=== PATIENT | female | born 1965 | race Caucasian/White ===

== ENCOUNTER 2017-02-24 21:09 | Inpatient (IN) | payer MEDICARE, OTHER ==
[~2017-02-24] VITALS: Ht 157.5 cm; Wt 122.5 kg
[2017-02-24 22:21] LABS: BASOPHILS # (AUTO) 0.1 K/uL (0.0-8.0); BASOPHILS % (AUTO) 1.2 % (0.0-2.0); EOSINOPHILS # (AUTO) 0.1 K/uL (0.0-0.7); EOSINOPHILS % (AUTO) 2.4 % (0.0-7.0); HEMATOCRIT 37.8 % (37-47); HEMOGLOBIN 12.4 G/DL (12.0-16.0); LYMPHOCYTES # (AUTO) 1.8 K/UL (0.8-4.8); LYMPHOCYTES % (AUTO) 30.5 % (20.5-51.5); MEAN CORPUSCULAR HEMOGLOBIN 31.8 UUG (27.0-31.0); MEAN CORPUSCULAR HGB CONC 33 g/dL (32.0-37.0); MEAN CORPUSCULAR VOLUME 96.9 FL (81.0-99.0); MONOCYTES # (AUTO) 0.6 K/UL (0.1-1.30); MONOCYTES % (AUTO) 10.7 % (0.0-11.0); NEUTROPHILS # (AUTO) 3.2 K/UL (1.8-8.9); NEUTROPHILS % (AUTO) 55.2 % (38.5-71.5); PLATELET COUNT (AUTO) 193 K/UL (150-450); WHITE BLOOD COUNT (AUTO) 5.8 K/UL (4.0-11.2)
[2017-02-24] MEDS ORDERED: HYPR15DR4 OP (22:25)
[2017-02-24] MEDS ORDERED: MYCO500T PO (22:25)
[2017-02-24] MEDS ORDERED: ONDA4TAB5 PO (22:25)
[2017-02-24] MEDS ORDERED: TAMS0.4C34 PO (22:25)
[2017-02-24] MEDS ORDERED: POTA-88 PO (22:25)
[2017-02-24] MEDS ORDERED: TRAM50TA PO (22:25)
[2017-02-24] MEDS ORDERED: HYDR-3026 PO (22:25)
[2017-02-24] MEDS ORDERED: SUCR1ORA PO (22:25)
[2017-02-24] MEDS ORDERED: POLY17PO4 PO (22:25)
[2017-02-24] MEDS ORDERED: DOCU250C14 PO (22:25)
[2017-02-24] MEDS ORDERED: FERR325T28 PO (22:25)
[2017-02-24] MEDS ORDERED: ACET-73 PO (22:25)
[2017-02-24] MEDS ORDERED: CHOL100062 PO (22:25)
[2017-02-24] MEDS ORDERED: ASCO-340 PO (22:25)
[2017-02-24] MEDS ORDERED: DOXY100C2 PO (22:25)
[2017-02-24] MEDS ORDERED: MONT10TA22 PO (22:25)
[2017-02-24] MEDS ORDERED: DILT30TA2 PO (22:25)
[2017-02-24] MEDS ORDERED: METH500T PO (22:25)
[2017-02-24] MEDS ORDERED: NITR0.4T48 SL (22:25)
[2017-02-24] MEDS ORDERED: NITR1PAT67 TD (22:25)
[2017-02-24] MEDS ORDERED: ARIP30TA3 PO (22:25)
[2017-02-24] MEDS ORDERED: GABA-536 PO (22:25)
[2017-02-24] MEDS ORDERED: BUDE0.5A4 IH (22:25)
[2017-02-24] MEDS ORDERED: MELA10TA3 PO (22:25)
[2017-02-24] MEDS ORDERED: MAGN400C PO (22:25)
[2017-02-24] MEDS ORDERED: IBUP-1955 PO (22:25)
[2017-02-24] MEDS ORDERED: AMLO10TA4 PO (22:25)
[2017-02-24] MEDS ORDERED: PANT40TA4 PO (22:25)
[2017-02-24] MEDS ORDERED: MULT1TAB73 PO (22:25)
[2017-02-24] MEDS ORDERED: APIX5TAB PO (22:25)
[2017-02-24] MEDS ORDERED: FURO80TA87 PO (22:25)
[2017-02-24] MEDS ORDERED: CLON1TAB PO (22:25)
[2017-02-24 22:29] LABS: CREATININE 0.8 mg/dL (0.6-1.3); POTASSIUM 3.4 mmol/L (3.5-5.1)
[2017-02-24 22:44] LABS: BILIRUBIN,DIRECT 0.1 mg/dL (0.0-0.2); BILIRUBIN,TOTAL 0.3 mg/dL (0.2-1.0); TOTAL PROTEIN, SERUM 6.9 g/dL (6.4-8.2)
[2017-02-25] VITALS (7 sets, daily range): BP systolic 95–122; BP diastolic 45–74
[2017-02-25] MEDS ORDERED: TRAMADOL HCL 50 MG TABLET PO PRN ×2 (01:30→08:30)
[2017-02-25] MEDS: IBUPROFEN 600 MG TABLET PO PRN ×4 (01:37→21:03)
[2017-02-25] MEDS ORDERED: TRAMADOL HCL 50 MG TABLET ONE (01:47)
[2017-02-25] MEDS ORDERED: IBUPROFEN 600 MG TABLET ONE (01:48)
[2017-02-25 06:52] LABS: BASOPHILS % (AUTO) 0.7 % (0.0-2.0); EOSINOPHILS # (AUTO) 0.1 K/uL (0.0-0.7); EOSINOPHILS % (AUTO) 2.6 % (0.0-7.0); HEMATOCRIT 35.1 % (37-47); HEMOGLOBIN 11.7 G/DL (12.0-16.0); LYMPHOCYTES # (AUTO) 1.7 K/UL (0.8-4.8); LYMPHOCYTES % (AUTO) 33.6 % (20.5-51.5); MEAN CORPUSCULAR HEMOGLOBIN 32.3 UUG (27.0-31.0); MEAN CORPUSCULAR HGB CONC 34 g/dL (32.0-37.0); MEAN CORPUSCULAR VOLUME 96.6 FL (81.0-99.0); MONOCYTES # (AUTO) 0.6 K/UL (0.1-1.30); MONOCYTES % (AUTO) 11.6 % (0.0-11.0); NEUTROPHILS # (AUTO) 2.5 K/UL (1.8-8.9); NEUTROPHILS % (AUTO) 51.5 % (38.5-71.5); PLATELET COUNT (AUTO) 191 K/UL (150-450); RED BLOOD CELL COUNT(AUTO) 3.63 MIL/UL (4.2-5.4); WHITE BLOOD COUNT (AUTO) 4.9 K/UL (4.0-11.2)
[2017-02-25 06:58] LABS: CREATININE 0.6 mg/dL (0.6-1.3); PHOSPHOROUS 4.3 mg/dL (2.5-4.9); POTASSIUM 3.1 mmol/L (3.5-5.1)
[2017-02-25] MEDS ORDERED: hydrOXYzine HCL 25 MG TABLET PO PRN (08:30)
[2017-02-25] MEDS ORDERED: DILTIAZEM HCL 30 MG TABLET PO PRN (08:30)
[2017-02-25] MEDS ORDERED: POLYVINYL ALCOHOL OPHT DROPS 15 ML BOTTLE EACHEYE PRN (08:30)
[2017-02-25] MEDS ORDERED: ONDANSETRON HCL 4 MG TABLET PO PRN (08:30)
[2017-02-25] MEDS ORDERED: NITROGLYCERIN 0.4 MG/TAB BOTTLE SL PRN (08:30)
[2017-02-25] MEDS ORDERED: FUROSEMIDE 80 MG TABLET PO SCH (09:00)
[2017-02-25] MEDS ORDERED: MAGNESIUM OXIDE 400 MG TABLET PO SCH (09:00)
[2017-02-25] MEDS ORDERED: NITROGLYCERIN PATCH TD SCH (09:00)
[2017-02-25] MEDS ORDERED: POTASSIUM CHLORIDE 20 MEQ TAB.PRT.SR PO SCH (09:00)
[2017-02-25] MEDS ORDERED: AMLODIPINE 10 MG TABLET PO SCH (09:00)
[2017-02-25] MEDS: CHOLECALCIFEROL 1,000 UNIT TABLET PO SCH ×2 (09:22→17:16)
[2017-02-25] MEDS: TAMSULOSIN HCL 0.4 MG CAP.SR.24H PO SCH (09:24)
[2017-02-25] MEDS: MYCOPHENOLATE MOFETIL 250 MG CAPSULE PO SCH ×2 (09:24→17:17)
[2017-02-25] MEDS: ASCORBIC ACID 500 MG TABLET PO SCH ×2 (09:26→17:18)
[2017-02-25] MEDS: DOCUSATE SODIUM 250 MG CAPSULE PO SCH ×2 (09:27→17:18)
[2017-02-25] MEDS ORDERED: MELATONIN 3 MG TABLET PO PRN (09:30)
[2017-02-25] MEDS ORDERED: APIXABAN 5 MG TABLET PO ONE (09:30)
[2017-02-25] MEDS: MULTIVITAMINS,THERAPEUTIC TABLET PO SCH (09:33)
[2017-02-25] MEDS: MIRALAX 17 GM POWD.PACK PO SCH ×2 (09:33→17:19)
[2017-02-25] MEDS: PANTOPRAZOLE SODIUM 40 MG TABLET.DR PO SCH ×2 (09:35→17:18)
[2017-02-25] MEDS ORDERED: GABA400C PO (10:50)
[2017-02-25] MEDS: BUDESONIDE 0.5 MG/2 ML NEBU IH SCH ×2 (11:09→16:33)
[2017-02-25] MEDS: ARIPIPRAZOLE 10 MG TABLET PO SCH (11:39)
[2017-02-25] MEDS: SUCRALFATE 1 G/10 ML LIQUID UDC PO SCH ×3 (11:40→21:02)
[2017-02-25] MEDS: METHOCARBAMOL 500 MG TABLET PO PRN ×2 (11:40→21:11)
[2017-02-25] MEDS: DOXYCYCLINE HYCLATE 100 MG TABLET PO SCH ×2 (11:40→21:11)
[2017-02-25] MEDS: NITROGLYCERIN 0.1 MG/HR (=4 CM2) PATCH TD SCH (11:44)
[2017-02-25] MEDS: GABAPENTIN 400 MG CAPSULE PO SCH ×3 (11:48→21:11)
[2017-02-25] MEDS: FERROUS SULFATE 325 MG TABEC PO SCH (11:48)
[2017-02-25] MEDS ORDERED: FUROSEMIDE 40 MG/4 ML VIAL IV SCH ×2 (12:00→17:00)
[2017-02-25] MEDS: POTASSIUM CHLORIDE 20 MEQ TAB.PRT.SR PO SCH ×2 (13:31→17:18)
[2017-02-25] MEDS ORDERED: POTASSIUM CHLORIDE 20 MEQ TAB.PRT.SR PO ONE (15:00)
[2017-02-25] MEDS: CLONAZEPAM 1 MG TABLET PO PRN ×2 (15:48→21:27)
[2017-02-25] MEDS: FUROSEMIDE 40 MG TABLET PO SCH (17:18)
[2017-02-25] MEDS: APIXABAN 5 MG TABLET PO SCH (17:24)
[2017-02-25] MEDS: ACETAMINOPHEN ES 500 MG TABLET PO PRN (17:24)
[2017-02-25] MEDS: MAGNESIUM OXIDE 400 MG TABLET PO SCH (18:46)
[2017-02-25] MEDS ORDERED: GABAPENTIN 400 MG CAPSULE PO SCH (21:00)
[2017-02-25] MEDS ORDERED: Medication Not On Formulary EA (Melatonin 10 MG) PO SCH (21:00)
[2017-02-25] MEDS: MONTELUKAST SODIUM 10 MG TABLET PO SCH (21:11)
[2017-02-26] MEDS: ACETAMINOPHEN ES 500 MG TABLET PO PRN ×3 (01:19→16:52)
[2017-02-26] MEDS: IBUPROFEN 600 MG TABLET PO PRN ×2 (05:17→13:43)
[2017-02-26] MEDS: METHOCARBAMOL 500 MG TABLET PO PRN ×2 (05:17→13:43)
[2017-02-26 05:42] VITALS: BP 116/65
[2017-02-26 06:24] LABS: BASOPHILS % (AUTO) 0.6 % (0.0-2.0); EOSINOPHILS # (AUTO) 0.1 K/uL (0.0-0.7); EOSINOPHILS % (AUTO) 2.5 % (0.0-7.0); HEMATOCRIT 36.9 % (37-47); LYMPHOCYTES # (AUTO) 1.6 K/UL (0.8-4.8); LYMPHOCYTES % (AUTO) 38.9 % (20.5-51.5); MEAN CORPUSCULAR HEMOGLOBIN 31.4 UUG (27.0-31.0); MEAN CORPUSCULAR HGB CONC 33 g/dL (32.0-37.0); MEAN CORPUSCULAR VOLUME 96.6 FL (81.0-99.0); MONOCYTES # (AUTO) 0.5 K/UL (0.1-1.30); MONOCYTES % (AUTO) 12.1 % (0.0-11.0); NEUTROPHILS # (AUTO) 1.9 K/UL (1.8-8.9); NEUTROPHILS % (AUTO) 45.9 % (38.5-71.5); PLATELET COUNT (AUTO) 193 K/UL (150-450); RED BLOOD CELL COUNT(AUTO) 3.82 MIL/UL (4.2-5.4); WHITE BLOOD COUNT (AUTO) 4.1 K/UL (4.0-11.2)
[2017-02-26 06:57] LABS: BILIRUBIN,TOTAL 0.3 mg/dL (0.2-1.0); CREATININE 0.6 mg/dL (0.6-1.3); MAGNESIUM 2.1 mg/dL (1.8-2.4); PHOSPHOROUS 3.6 mg/dL (2.5-4.9); POTASSIUM 4.1 mmol/L (3.5-5.1); TOTAL PROTEIN, SERUM 6.3 g/dL (6.4-8.2)
[2017-02-26] MEDS: SUCRALFATE 1 G/10 ML LIQUID UDC PO SCH ×4 (06:57→20:01)
[2017-02-26] MEDS: POTASSIUM CHLORIDE 20 MEQ TAB.PRT.SR PO SCH ×3 (08:25→16:27)
[2017-02-26] MEDS: DOXYCYCLINE HYCLATE 100 MG TABLET PO SCH ×2 (08:26→20:02)
[2017-02-26] MEDS: MYCOPHENOLATE MOFETIL 250 MG CAPSULE PO SCH ×2 (08:26→16:27)
[2017-02-26] MEDS: FUROSEMIDE 40 MG TABLET PO SCH ×2 (08:27→16:27)
[2017-02-26] MEDS: TAMSULOSIN HCL 0.4 MG CAP.SR.24H PO SCH (08:28)
[2017-02-26] MEDS: GABAPENTIN 400 MG CAPSULE PO SCH ×3 (08:28→20:01)
[2017-02-26] MEDS: ASCORBIC ACID 500 MG TABLET PO SCH ×2 (08:28→16:26)
[2017-02-26] MEDS: DOCUSATE SODIUM 250 MG CAPSULE PO SCH ×2 (08:29→16:27)
[2017-02-26] MEDS: CHOLECALCIFEROL 1,000 UNIT TABLET PO SCH ×2 (08:29→16:28)
[2017-02-26] MEDS: MULTIVITAMINS,THERAPEUTIC TABLET PO SCH (08:29)
[2017-02-26] MEDS: MIRALAX 17 GM POWD.PACK PO SCH ×2 (08:30→16:35)
[2017-02-26] MEDS: PANTOPRAZOLE SODIUM 40 MG TABLET.DR PO SCH ×2 (08:30→16:28)
[2017-02-26] MEDS: APIXABAN 5 MG TABLET PO SCH ×2 (08:33→17:47)
[2017-02-26] MEDS: NITROGLYCERIN 0.1 MG/HR (=4 CM2) PATCH TD SCH (08:35)
[2017-02-26] MEDS: ARIPIPRAZOLE 10 MG TABLET PO SCH (08:50)
[2017-02-26] MEDS: BUDESONIDE 0.5 MG/2 ML NEBU IH SCH ×2 (08:55→17:00)
[2017-02-26 11:14] VITALS: BP 127/64
[2017-02-26] MEDS: MAGNESIUM OXIDE 400 MG TABLET PO SCH ×2 (11:31→16:27)
[2017-02-26] MEDS: FERROUS SULFATE 325 MG TABEC PO SCH (11:31)
[2017-02-26] MEDS ORDERED: Z GUARD REMEDY PASTE 57 GM TUBE TOP PRN (15:00)
[2017-02-26] MEDS ORDERED: Z GUARD REMEDY PASTE 57 GM TUBE TOP SCH (15:00)
[2017-02-26 15:12] VITALS: BP 125/65
[2017-02-26] MEDS: CLONAZEPAM 1 MG TABLET PO PRN (17:49)
[2017-02-26 19:00] VITALS: BP 106/55
[2017-02-26] MEDS: MONTELUKAST SODIUM 10 MG TABLET PO SCH (20:02)
== END 2017-02-26 20:51 | DRG 948 ==
LOC: ER 21:12 → MED 23:59 → TELE 02-25 06:41 → MED 02-25 15:50
PROVIDERS: ADMIT Internal Medicine; ATTEND Internal Medicine
DX: R60.0 Localized edema (principal); M32.9 Systemic lupus erythematosus, unspecified; I11.9 Hypertensive heart disease without heart failure; Z68.42 Body mass index [BMI] 45.0-49.9, adult; E66.9 Obesity, unspecified; R53.1 Weakness; Z88.8 Allergy status to other drugs, medicaments and biological substances; Z91.048 Other nonmedicinal substance allergy status; Z74.09 Other reduced mobility; Z86.718 Personal history of other venous thrombosis and embolism; Z79.01 Long term (current) use of anticoagulants; Z86.711 Personal history of pulmonary embolism; I87.2 Venous insufficiency (chronic) (peripheral)
CPT/HCPCS: 36415; 70030-TC; 71010; 82533; 83735; 84100; 84443; 85025; 85730; 93005; 93307; 94640; 97116; 97530; A4663; J7517

== ENCOUNTER 2017-07-21 23:20 | Inpatient (IN) | payer OTHER, MEDICARE ==
[~2017-07-21] VITALS: Ht 167.6 cm; Wt 124.7 kg
[~2017-07-21 23:20] MED LIST: ACET-73 PO; AMLO10TA4 PO; APIX5TAB PO; ARIP30TA3 PO; ASCO-340 PO; BUDE0.5A4 IH; CHOL100062 PO; CLON1TAB PO; DILT30TA2 PO; DOCU250C14 PO; DOXY100C2 PO; FERR325T28 PO; FURO80TA87 PO; GABA-536 PO; GABA400C PO; HYDR-3026 PO; HYPR15DR4 OP; IBUP-1955 PO; MAGN400C PO; MELA10TA3 PO; METH500T PO; MONT10TA22 PO; MULT1TAB73 PO; MYCO500T PO; NITR0.4T48 SL; NITR1PAT67 TD; ONDA4TAB5 PO; PANT40TA4 PO; POLY17PO4 PO; POTA-88 PO; SUCR1ORA PO; TAMS0.4C34 PO; TRAM50TA PO
--- NOTE | 2017-07-21 23:30 | NUR ---
PT BIB AMBULANCE AFTER BEING FOUND UNRESPONSIVE AND POSSIBLY SUSPECTED OVERDOSE PER [facility].
--- NOTE | 2017-07-21 23:50 | NUR ---
PT REMAINS UNCONSCIOUS. TAKEN TO CT. VSS. NO ACUTE DISTRESS NOTED. ACCOMPANIED BY RN.
[2017-07-22] MEDS ORDERED: NALOXONE HCL 0.4 MG/ML AMPUL ONE (00:09)
--- NOTE | 2017-07-22 00:09 | NUR ---
PT REMAINS UNCONSCIOUS. RESPONSIVE TO PAINFUL STIMULI, ATTEMPTING TO PULL AT NG TUBE
[2017-07-22] MEDS ORDERED: ONDANSETRON 4 MG/2 ML VIAL IV ONE (00:45)
[2017-07-22] MEDS ORDERED: CHARCOAL/SORBITOL SOLUTION 50 GM/240 ML BOTTLE PO ONE (00:45)
[2017-07-22] MEDS ORDERED: NALOXONE HCL 0.4 MG/ML AMPUL IV ONE ×2 (00:45)
[2017-07-22] MEDS ORDERED: NALOXONE 2 MG/2 ML SYRINGE ONE (00:56)
[2017-07-22] MEDS ORDERED: ONDANSETRON 4 MG/2 ML VIAL ONE (01:24)
[2017-07-22] MEDS ORDERED: CHARCOAL/SORBITOL SOLUTION 50 GM/240 ML BOTTLE ONE (01:25)
[2017-07-22 01:27] LABS: CARBON DIOXIDE 23 mmol/L (21-32); CHLORIDE 107 mmol/L (98-107); CREATININE 0.8 mg/dL (0.6-1.3); GLUCOSE 123 mg/dL (74-106); POTASSIUM 4.1 mmol/L (3.5-5.1); UREA NITROGEN, BLOOD 26 mg/dL (7-18)
[2017-07-22 01:33] LABS: ALANINE AMINOTRANSFERASE 21 U/L (14-59); ALKALINE PHOSPHATASE 126 U/L (50-136); ASPARTATE AMINOTRANSFERASE 28 U/L (15-37); BILIRUBIN,DIRECT 0.1 mg/dL (0.0-0.2); BILIRUBIN,TOTAL 0.5 mg/dL (0.2-1.0); TOTAL PROTEIN, SERUM 7.1 g/dL (6.4-8.2)
[2017-07-22 01:54] LABS: BASOPHILS % (AUTO) 0.6 % (0.0-2.0); EOSINOPHILS # (AUTO) 0.1 K/uL (0.0-0.7); EOSINOPHILS % (AUTO) 1.1 % (0.0-7.0); HEMATOCRIT 41.7 % (31.2-41.9); LYMPHOCYTES # (AUTO) 1.9 K/uL (20.0-40.0); LYMPHOCYTES % (AUTO) 31.1 % (20.5-51.5); MEAN CORPUSCULAR HEMOGLOBIN 33.3 uug (24.7-32.8); MEAN CORPUSCULAR HGB CONC 34 g/dL (32.3-35.6); MONOCYTES # (AUTO) 0.9 K/uL (2.0-10.0); MONOCYTES % (AUTO) 14.7 % (0.0-11.0); NEUTROPHILS # (AUTO) 3.2 K/uL (1.8-8.9); NEUTROPHILS % (AUTO) 52.5 % (38.5-71.5); PLATELET COUNT (AUTO) 198 K/uL (179-408); RED BLOOD CELL COUNT(AUTO) 4.21 MIL/uL (3.63-4.92); WHITE BLOOD COUNT (AUTO) 6.1 K/uL (3.8-11.8)
--- NOTE | 2017-07-22 02:00 | NUR ---
STILL AWAITING PENDING LAB RESULTS
[2017-07-22 02:05] LABS: ETHANOL < 3 MG/DL (0-0)
[2017-07-22 02:08] LABS: *URINE HCG, QUAL NEGATIVE (NEGATIVE)
[2017-07-22 02:16] LABS: *AMPHETAMINE, URINE NEGATIVE (NEGATIVE); *BARBITURATE, URINE NEGATIVE (NEGATIVE); *CANNABINOID, URINE NEGATIVE (NEGATIVE); *COCCAINE, URINE NEGATIVE (NEGATIVE); *OPIATE, URINE POSITIVE (NEGATIVE); *PHENCYCLIDINE SCREEN,URINE NEGATIVE (NEGATIVE)
[2017-07-22 02:25] LABS: ACETAMINOPHEN 219.8 ug/mL (10-30)
[2017-07-22] MEDS ORDERED: ACETYLCYSTEINE 20% 800 MG/4 ML VIAL NEB ONE (02:30)
[2017-07-22] MEDS ORDERED: ACETYLCYSTEINE 20% 6000 MG/30 ML VIAL PO ONE (02:30)
[2017-07-22 02:36] LABS: *BILIRUBIN,URIN NEGATIVE (NEGATIVE); *BLOOD, URINE NEGATIVE (NEGATIVE); *CLARITY,URINE CLEAR (CLEAR); *COLOR,URINE YELLOW (YELLOW); *KETONES,URINE NEGATIVE (NEGATIVE); *PROTEIN,URINE NEGATIVE (NEGATIVE); *UROBILINOGEN,URINE 0.2 E.U./dl (NORMAL); LEUKOCYTE ESTERASE ,URINE NEGATIVE (NEGATIVE); NITRITE, URINE NEGATIVE (NEGATIVE); PH,URINE 5.5 (5.0-8.0); UGLUCOSE NEGATIVE (NEGATIVE)
[2017-07-22 02:40] LABS: BACTERIA,URINE NONE SEEN /HPF (NONE SEEN); RBC,URINE NONE SEEN /HPF (0-3); SQUAMOUS EPITHELIAL CELL,UR FEW /HPF (NONE SEEN); WBC,URINE NONE SEEN /HPF (0-3)
[2017-07-22] MEDS ORDERED: ACETYLCYSTEINE IV 6,000 MG/30 ML VIAL IV ONE ×5 (03:00→16:57)
[2017-07-22 03:07] LABS: THYROID STIMULATING HORMONE 1.117 mIU/mL (0.358-3.740)
[2017-07-22] MEDS ORDERED: ACETYLCYSTEINE 20% 6000 MG/30 ML VIAL ONE (03:18)
[2017-07-22] MEDS ORDERED: ACETYLCYSTEINE IV 60 ML IV ONE (03:18)
--- NOTE | 2017-07-22 03:21 | NUR ---
PT STARTING TO WAKE UP. WHEN ASKED IF SHE REMEMBERS WHAT HAPPENED, PT SHOOK HER HEAD "NO".
[2017-07-22] MEDS: ACETYLCYSTEINE IV 6,000 MG/30 ML VIAL IV ONE ×3 (03:54→04:35)
--- NOTE | 2017-07-22 04:43 | NUR ---
PER PROTOCOL, LOADING DOSE OF Acetadote IV IS 15,000 MG. HOWEVER, ONLY 12,000 MG IS AVAILABLE IN [facility]. DATABASE PROGRAMMER ANALYST MADE AWARE, WHO THEN CALLED COMMERCIAL LINES UNDERWRITER PHARMACIST. PER DATABASE PROGRAMMER ANALYST, NO OTHER Acetadote IV IS AVAILABLE THROUGHOUT HOSPITAL/PHARMACY. COMMERCIAL LINES UNDERWRITER PHARMACIST MADE AWARE. PER ER MD, THE AVAILABLE Acetadote IV IS TO BE GIVEN, WHICH WAS THE 12,000 MG STATED ABOVE. AWAITING RESTOCKING OF Acetadote IV TO GIVE PER PROTOCOL.
--- NOTE | 2017-07-22 05:13 | NUR ---
EPIC PAGED. WAS TOLD MD WILL CALL BACK.
--- NOTE | 2017-07-22 05:43 | NUR ---
PER PHARMACIST, LAST 3,000 MG OF Acetadote IV GIVEN OVER 10 MIN PER ORDER TO COMPLETE TOTAL BOLUS OF 15,000 MG LOADING DOSE OF Acetadote IV.
--- NOTE | 2017-07-22 05:59 | NUR ---
PT PENDING ADMISSION. NO [facility] BEDS AVAILABLE. WAS INSTRUCTED BY FOOD SAMPLER TO HOLD PATIENT UNTIL A BED BECOMES AVAILABLE.
--- NOTE | 2017-07-22 06:28 | NUR ---
NG TUBE DISCONTINUED PER ER .
--- NOTE | 2017-07-22 07:19 | NUR ---
REPORT GIVEN TO JESUS PEGUERO.
[2017-07-22] MEDS ORDERED: IV NORMAL SALINE 1000 ML BAG IV ONE (09:45)
[2017-07-22] MEDS ORDERED: ACETYLCYSTEINE IV 10,000 MG in IV D5W 1000ML 1,000 ML IV ONE (10:45)
--- NOTE | 2017-07-22 19:03 | NUR ---
REPORT GIVEN TO NEON ELECTRICIAN RN.
--- NOTE | 2017-07-22 19:36 | NUR ---
REPORT TAKEN FROM JESUS PEGUERO. ASSUMING PATIENT CARE AT THIS TIME.
--- NOTE | 2017-07-22 20:07 | NUR ---
REPORT GIVEN TO NEHEMIAS LEE
--- NOTE | 2017-07-22 20:12 | NUR ---
CALLED AUTOMOBILE OR [employer]UCK RENTAL DISPATCHER [employer]. TO GET A SITTER FOR PT WHEN SHE GETS ADMITTED. WAS TOLD THEY WILL CALL REGISTRY.
--- NOTE | 2017-07-22 22:00 | NUR ---
report given to JESUS Mcbride.
[2017-07-22 22:30] VITALS: BP 116/70
--- NOTE | 2017-07-22 22:34 | NUR ---
Pt. admitted to CCU, under care of Dr. Funk Belongs List completed
[2017-07-22] MEDS ORDERED: ACETAMINOPHEN 325 MG TABLET PO PRN (23:30)
[2017-07-22] MEDS ORDERED: IV D5/ 0.9% NACL 1,000 ML IV PRN (23:30)
[2017-07-22] MEDS ORDERED: MORPHINE SULFATE 2 MG/1 ML DISP.SYRIN IV PRN (23:30)
[2017-07-23] VITALS (7 sets, daily range): BP systolic 91–134; BP diastolic 52–72
--- NOTE | 2017-07-23 03:10 | NUR ---
RECEIVED PT FROM ED AT 2230 07/22/2017. ADMITTED WITH TYLENOL OD AND OPIOIDS PER DRUG SCREEN. PT IS AWAKE AND ORIENTED X2. DROWSY WITH INTERMITTENT SLURRY SPEECH OTHERWISE HER SPEECH IS CLEAR. SHE IS EXTREMELY NEEDY. DICTATING HER CARE. SHE IS 1:1 FOR SUICIDE ATTEMPT. THERE IS A SUICIDE NOTE IN HER CHART. DENIES ANY PLAN TO HURT HERSELF OR OTHERS AT THIS TIME. STATES THAT SHE HAS ADVANCE DIRECTIVE BUT NO ONE CAN BRING OR FAX IT TO HOSPITAL BECAUSE IT IS LOCK UP AT HER ASSISTED LIVING RESIDENCE. SHE IS NOT COMPLIANT WITH CARE. REFUSING VTE MANAGEMENT, BEING PUT ON MONITOR, HER BP TAKEN, OR CHANGE INTO HOSPITAL GOWN. SHE HAS LONG LIST OF ALLERGIES. NO ACUTE DISTRESS. AWAKE AND CALLING OUT. HR REGULAR, RECEIVED HER ON 4L NC WITH SAO2 100%, O2 DROPPED TO 2L NC WITH SAO2 OF 98 - 100%. V/S S. AFEBRILE. LAST BM 07/22/2017. HAS PALMER EMPTIED 1500 ML OF SUSAN COLOR AND PUNGENT SMELLING URINE. UA DONE IN ER. MRSA SWAB SENT. PT IS MORBIDLY OBESE 266LBS.BY BED SCALE. SO MOBILITY IS AN ISSUE. PT IS ANGRY AND CURSING NURSES. USING FOUL LANGUAGE. THREATENING TO GET OOB AND SAID " I WILL GET OOB AND IF I FALL YOU WILL GET IN TROUBLE AND I WILL JOSY THIS HOSPITAL AND YOU." PT IS ON SUICIDE WATCH. NO SHARPS OR METAL THINGS IN ROOM. IV MUCOMYST COMPLETED AT 0300. D5NS 1000 ML AT 70 ML/HR STARTED PER ORDER. PT IS ABLE TO CHANGE POSITION IN BED BY HER SELF. REFUSED MEPILEX FOAM DRESSING TO SACRUM BECAUSE SHE STATES THAT SHE IS ALLERGIC TO IT. THERE IS NO SIGN OF OPEN SKIN OR ANY BREAKDOWN. SHE NEEDS SPECIAL BIG BOY MATTRESS. WILL ENDORSE IT TO DAY SHIFT WHEN PT WILL BE TRANSFER TO [facility] (PLAN). RESTING COMFORTABLY AT THIS TIME. ON HER LEFT SIDE.
[2017-07-23] MEDS ORDERED: MORPHINE SULFATE 4 MG/1 ML DISP.SYRIN IV PRN (07:30)
--- NOTE | 2017-07-23 07:30 | NUR ---
RECIEVED PT IN BED, AWAKE, ORIENTEDX3. PT IS NOT IN GOOD SPIRIT, APPEARS IN AN ANGRY MOOD, VERY UNCOOPERATIVE AND COMPLAINS A LOT. PT REFUSED TO BE ON THE MONITOR AND REFUSED HER BP MONITORING.
--- NOTE | 2017-07-23 08:30 | NUR ---
NOTIFIED DR CARRILLO ABOUT PT'S CONDITION. PT IS BEING TRANSFERRED UNDER THE CARE OF DR CHAWLA.
[2017-07-23] MEDS: FAMOTIDINE. 20 MG/2 ML VIAL IV SCH ×2 (09:08→21:25)
--- NOTE | 2017-07-23 10:30 | NUR ---
CALLED UP FOR PSYCHE CONSULT. PT WILL NEED TO HAVE A HOLD. NOTIFIED ESTRELLA AND HE IS COMING BY 2PM.
--- NOTE | 2017-07-23 13:30 | NUR ---
SEEN AND EXAMINED BY DR CHAWLA. OKEYED TO DOWNGRADE PT TO MEDSUR.
--- NOTE | 2017-07-23 14:00 | NUR ---
FOLEYCATHETER REMOVED ORDERED.
[2017-07-23 15:08] LABS: EOSINOPHILS # (AUTO) 0.1 K/uL (0.0-0.7); EOSINOPHILS % (AUTO) 1.9 % (0.0-7.0); MONOCYTES # (AUTO) 0.4 K/uL (2.0-10.0); WHITE BLOOD COUNT (AUTO) 4.4 K/uL (3.8-11.8)
[2017-07-23] MEDS ORDERED: MORPHINE SULFATE 2 MG/1 ML DISP.SYRIN IV PRN (15:15)
[2017-07-23 15:20] LABS: BASOPHILS % (AUTO) 0.6 % (0.0-2.0); HEMATOCRIT 33.9 % (31.2-41.9); LYMPHOCYTES # (AUTO) 0.8 K/uL (20.0-40.0); MEAN CORPUSCULAR HEMOGLOBIN 32.5 uug (24.7-32.8); MEAN CORPUSCULAR HGB CONC 33 g/dL (32.3-35.6); MEAN CORPUSCULAR VOLUME 97.9 fL (75.5-95.3); MONOCYTES % (AUTO) 9.8 % (0.0-11.0); NEUTROPHILS % (AUTO) 68.7 % (38.5-71.5); PLATELET COUNT (AUTO) 172 K/uL (179-408); RED BLOOD CELL COUNT(AUTO) 3.47 MIL/uL (3.63-4.92)
[2017-07-23 15:22] LABS: HEMOGLOBIN 11.3 g/dL (10.9-14.3)
[2017-07-23 15:33] LABS: ACETAMINOPHEN < 2.0 ug/mL (10-30); ALANINE AMINOTRANSFERASE 19 U/L (14-59); ALKALINE PHOSPHATASE 109 U/L (50-136); ASPARTATE AMINOTRANSFERASE 13 U/L (15-37); BILIRUBIN,TOTAL 0.3 mg/dL (0.2-1.0); CARBON DIOXIDE 24 mmol/L (21-32); CHLORIDE 112 mmol/L (98-107); CREATININE 0.5 mg/dL (0.6-1.3); GLUCOSE 103 mg/dL (74-106); PHOSPHOROUS 2.6 mg/dL (2.5-4.9); TOTAL PROTEIN, SERUM 5.8 g/dL (6.4-8.2); UREA NITROGEN, BLOOD 9 mg/dL (7-18)
[2017-07-23 15:50] LABS: CHOLESTEROL 160 mg/dL (<200); HDL CHOLESTEROL 56 mg/dL (40-60); IRON, SERUM 54 ug/dL (50-175); TRIGLYCERIDES 100 MG/DL (30-150)
[2017-07-23] MEDS: MORPHINE SULFATE 4 MG/1 ML DISP.SYRIN IV PRN ×2 (16:06→23:41)
--- NOTE | 2017-07-23 20:00 | NUR ---
REPORT GIVEN TO MERCED LEE FOR CONTINUITY OF CARE. TRANSFERED PT TO RM 217 VIA BED.
[2017-07-23] MEDS: POTASSIUM CHLORIDE 20 MEQ TAB.PRT.SR PO SCH ×2 (21:25→23:30)
--- NOTE | 2017-07-23 22:32 | NUR ---
Pt received upon transfer from CCU via bed. Pt alert, awake, follows simple verbal requests, oriented x 3, verbal contracted with pt about safety and no harm, understands suicide precautions, sitter at bedside, bed in low position, bed exit alarms activated, no sharps in room. Monitoring pt for safety and comfort.
[2017-07-24] MEDS: FAMOTIDINE. 20 MG/2 ML VIAL IV SCH (08:40)
[2017-07-24] MEDS: MORPHINE SULFATE 4 MG/1 ML DISP.SYRIN IV PRN (08:41)
[2017-07-24 09:51] VITALS: BP 109/66
[2017-07-24] MEDS: ARIPIPRAZOLE 5 MG TABLET PO SCH (12:20)
[2017-07-24 12:50] VITALS: BP 122/70
[2017-07-24 16:05] VITALS: BP 120/51
[2017-07-24] MEDS: DOCUSATE SODIUM 250 MG CAPSULE PO SCH (17:13)
--- NOTE | 2017-07-24 17:50 | NUR ---
PAIN NOTE C/O OF PAIN UNABLE TO TAKE THE IM MORPHINE SHE SAYS SHE HAS TOO MANY HEMATOMAS WITH IM INJECTIONS. WANT PO MEDS . MD SPENCER ORDERED DILAUDID 2MG PO Q6H
[2017-07-24] MEDS: HYDROMORPHONE HCL 2 MG TABLET PO PRN (17:59)
[2017-07-24 20:00] VITALS: BP 116/55
[2017-07-24] MEDS: FAMOTIDINE 20 MG TABLET PO SCH (22:30)
[2017-07-24] MEDS: MORPHINE SULFATE 4 MG/1 ML DISP.SYRIN IM PRN (22:31)
[2017-07-25 04:00] VITALS: BP 125/75
[2017-07-25] MEDS: MORPHINE SULFATE 4 MG/1 ML DISP.SYRIN IM PRN ×3 (05:14→20:14)
--- NOTE | 2017-07-25 07:01 | NUR ---
PATIENT WAS SCREAMING AND YELLING AND CURSING AT THE BEGINNING OF THE SHIFT. PT COMPLAINED THE PO DILAUDID WAS NOT WORKING DESPITE TAKING IT 2 HOURS EARLIER. ADMINISTERED IM MORPHINE AND IT WAS EFFECTIVE. PATIENT SLEPT FROM APPROXIMATELY 11PM TO 5AM. CONTINUES ON 5150 HOLD. NO EPISODE OF SUICIDAL IDEATION OR VERBALIZATIONS. OFFERED BEDPAN FREQUENTLY. 1:1 SITTER AT BEDSIDE CONTINUOUSLY.
[2017-07-25] MEDS: ARIPIPRAZOLE 5 MG TABLET PO SCH (08:27)
[2017-07-25] MEDS: DOCUSATE SODIUM 250 MG CAPSULE PO SCH ×2 (08:27→17:00)
[2017-07-25] MEDS: FAMOTIDINE 20 MG TABLET PO SCH ×2 (08:27→20:13)
[2017-07-25 09:12] LABS: BASOPHILS % (AUTO) 0.6 % (0.0-2.0); EOSINOPHILS # (AUTO) 0.2 K/uL (0.0-0.7); EOSINOPHILS % (AUTO) 3.7 % (0.0-7.0); HEMATOCRIT 35.8 % (31.2-41.9); HEMOGLOBIN 11.7 g/dL (10.9-14.3); LYMPHOCYTES # (AUTO) 1.3 K/uL (20.0-40.0); LYMPHOCYTES % (AUTO) 30.2 % (20.5-51.5); MEAN CORPUSCULAR HEMOGLOBIN 32.2 uug (24.7-32.8); MEAN CORPUSCULAR HGB CONC 33 g/dL (32.3-35.6); MEAN CORPUSCULAR VOLUME 98.3 fL (75.5-95.3); MONOCYTES # (AUTO) 0.4 K/uL (2.0-10.0); MONOCYTES % (AUTO) 9.6 % (0.0-11.0); NEUTROPHILS # (AUTO) 2.4 K/uL (1.8-8.9); NEUTROPHILS % (AUTO) 55.9 % (38.5-71.5); PLATELET COUNT (AUTO) 182 K/uL (179-408); RED BLOOD CELL COUNT(AUTO) 3.64 MIL/uL (3.63-4.92); WHITE BLOOD COUNT (AUTO) 4.3 K/uL (3.8-11.8)
[2017-07-25 09:19] LABS: BILIRUBIN,TOTAL 0.2 mg/dL (0.2-1.0); CREATININE 0.6 mg/dL (0.6-1.3); MAGNESIUM 1.9 mg/dL (1.8-2.4); PHOSPHOROUS 3.2 mg/dL (2.5-4.9); POTASSIUM 3.6 mmol/L (3.5-5.1); TOTAL PROTEIN, SERUM 6.3 g/dL (6.4-8.2)
[2017-07-25] MEDS: HYDROMORPHONE HCL 2 MG TABLET PO PRN (09:59)
[2017-07-25 13:40] VITALS: BP 140/74
[2017-07-25 17:12] VITALS: BP 139/82
--- NOTE | 2017-07-25 18:00 | NUR ---
Pt had multiple mood swings throughout shift. Pt would be cooperative at one moment then pt will start shouting on the top of her lungs stating "i want to kill my self." Sitter at bedside for safety. Pt has no plans on how to kill herself. Hold changed to 14 days. Hold Copy given to patient. Pt is in no acute distress.
[2017-07-25 20:00] VITALS: BP 123/74
--- NOTE | 2017-07-25 20:30 | NUR ---
PATIENT AWAKE,ALERT,DEPRESSED,C/O HAVING A LOT OF PAIN, MEDICATED WITH MORPHINE 2 MG IM, PATIENT STATED ORAL PAIN MEDICATIONS NOT WORKING FOR HER,CONTINUE 1:1 SITTER AT BEDSIDE FOR SUICIDAL PREVENTIONS, PATIENT ON 14 DAYS HOLD STATUS,NO SUICIDAL PLAN .
[2017-07-26] MEDS: MORPHINE SULFATE 4 MG/1 ML DISP.SYRIN IM PRN ×4 (00:19→17:05)
[2017-07-26 05:59] VITALS: BP 143/80
[2017-07-26 06:44] LABS: BASOPHILS % (AUTO) 0.6 % (0.0-2.0); EOSINOPHILS # (AUTO) 0.2 K/uL (0.0-0.7); EOSINOPHILS % (AUTO) 4.5 % (0.0-7.0); HEMATOCRIT 35.2 % (31.2-41.9); HEMOGLOBIN 11.8 g/dL (10.9-14.3); LYMPHOCYTES # (AUTO) 1.5 K/uL (20.0-40.0); LYMPHOCYTES % (AUTO) 33.3 % (20.5-51.5); MEAN CORPUSCULAR HEMOGLOBIN 32.5 uug (24.7-32.8); MEAN CORPUSCULAR HGB CONC 33 g/dL (32.3-35.6); MEAN CORPUSCULAR VOLUME 97.2 fL (75.5-95.3); MONOCYTES # (AUTO) 0.5 K/uL (2.0-10.0); MONOCYTES % (AUTO) 10.9 % (0.0-11.0); NEUTROPHILS # (AUTO) 2.2 K/uL (1.8-8.9); NEUTROPHILS % (AUTO) 50.7 % (38.5-71.5); PLATELET COUNT (AUTO) 180 K/uL (179-408); RED BLOOD CELL COUNT(AUTO) 3.62 MIL/uL (3.63-4.92); WHITE BLOOD COUNT (AUTO) 4.4 K/uL (3.8-11.8)
[2017-07-26 06:51] LABS: BILIRUBIN,TOTAL 0.2 mg/dL (0.2-1.0); CREATININE 0.5 mg/dL (0.6-1.3); MAGNESIUM 1.9 mg/dL (1.8-2.4); PHOSPHOROUS 4.2 mg/dL (2.5-4.9); POTASSIUM 3.5 mmol/L (3.5-5.1); TOTAL PROTEIN, SERUM 6.3 g/dL (6.4-8.2)
[2017-07-26 07:27] VITALS: BP 134/70
[2017-07-26] MEDS: ARIPIPRAZOLE 5 MG TABLET PO SCH (08:41)
[2017-07-26] MEDS: FAMOTIDINE 20 MG TABLET PO SCH ×2 (08:41→20:40)
[2017-07-26] MEDS: DOCUSATE SODIUM 250 MG CAPSULE PO SCH ×2 (08:41→16:25)
--- NOTE | 2017-07-26 09:00 | NUR ---
AWAKE ALERT AND ORIENTED BUT FORGETFUL REQUESTED FOR MORPHINE GIVEN ORDERED AND MADE COMFORTABLE PATIENT IS UNCOOPERATIVE GETS EASILY ANGRY GETS VERBALLY ABUSIVVE SCREAMS OUT AT TIMES SHE HAS A ONE ON ONE SITTER AT HER BEDSIDE FOE SAFETY MADE COMFORTABLE AND WILL CONTINUE TO OBSERVE.
--- NOTE | 2017-07-26 11:00 | NUR ---
PATIENT HAS A GAUZE DRESSING ON HER RIGHT UPPER CHEST AREA STATED THAT ITS A GERSON CATH THAT WAS PLACED LAST WEEK ATTEMPTED TO REMOVE THE DRESSING IN OTHER TO SEE WHAT IS UNDERNEATH THE DRESSING PATIENT REFUSED AND STATED THAT SHE WILL NOT ALLOW ANYONE TO TOUCH IT THAT IT WAS PLACED AT [facility] UNABLE TO ELABORATE FUTHER.
[2017-07-26 11:24] VITALS: BP 124/71
--- NOTE | 2017-07-26 12:00 | NUR ---
PHYSICAL THERAPY HERE TO SEE PATIENT FOR EVALUATION BUT SHE REFUSED AND STATED THAT SHE IS NOT ABLE TO USE THE WALKER AT THIS TIME ON ACCOUNT OF THE GERSON CATH ON HER RIGHT UPPER CHEST.
[2017-07-26 15:11] VITALS: BP 126/70
--- NOTE | 2017-07-26 15:17 | NUR ---
Abstract Manager: [facility] was notified of patient's 5250. A[address] to schedule [facility].
--- NOTE | 2017-07-26 15:50 | NUR ---
DR HAWK HERE TO SEE PATIENT WITH ORDER TO DISCONTINUE 3670 TAXICAB STARTER AWARE
--- NOTE | 2017-07-26 17:00 | NUR ---
MENTAL HEALTH UNIT CHARGE NOTIFIED THAT HOLD HAS BEEN DISCONTINUED ON THIS PATIENT STATED WILL CALL THE COURTS AND CANCEL IT.
--- NOTE | 2017-07-26 18:00 | NUR ---
PATIENT IS RESTING ANXIOUS TO BE DISCHARGED BACK TO THE ASSISTED LIVING SO I SENT THE BURNER SHAFT TO TALK WITH HER RE GOING BACK.
[2017-07-26 20:00] VITALS: BP 124/67
--- NOTE | 2017-07-26 20:00 | NUR ---
patient awake,alert,oriented,calm ,d/c 5250 hold,voluntary status,wants to go back to previous facility,for d/c plan when accepted, denies any suicidal ideations,resting ,no acute distress, vital signs stable.
[2017-07-26] MEDS ORDERED: ONDANSETRON ODT 4 MG TAB.RAPDIS SL PRN (20:45)
[2017-07-27] MEDS: MORPHINE SULFATE 4 MG/1 ML DISP.SYRIN IM PRN ×2 (00:38→06:19)
--- NOTE | 2017-07-27 00:45 | NUR ---
patient c/o generalized pain,Morphine 2 mg im medicated for pain ,effective.
[2017-07-27 04:56] VITALS: BP 102/54
--- NOTE | 2017-07-27 07:07 | NUR ---
patient sleep well, alert,and oriented, co operative,states wants to go home, and she has appointment with her hematology on Wednesday.
--- NOTE | 2017-07-27 07:30 | NUR ---
AWAKE ALERT AND AWARE SEEMS COMFORTABLE ON ROOM AIR WITH NO SHORTNESS OF BREATH PATIENT STILL ANXIOUS ABOUT DISCHARGE REASSURED HER THAT THE DRAPERY SUPERVISOR INSTRUMENTATION ENGINEER IS WORKING ON PLACEMENT MADE COMFORTABLE AND WILL CONTINUE TO OBSERVE AND PROVIDE A SAFE AND THERAPEUTIC ENVIRONMENT AT ALL TIMES.
[2017-07-27] MEDS ORDERED: TRAMADOL HCL 50 MG TABLET PO PRN (08:30)
[2017-07-27] MEDS: DOCUSATE SODIUM 250 MG CAPSULE PO SCH ×2 (08:52→16:39)
[2017-07-27] MEDS: FAMOTIDINE 20 MG TABLET PO SCH (08:52)
[2017-07-27] MEDS: ARIPIPRAZOLE 5 MG TABLET PO SCH (08:52)
--- NOTE | 2017-07-27 11:03 | NUR ---
PATIENT IS REQUESTING FOR PAIN AND NAUSEA MEDICATIONS OFFERED HER THE ULTRAM ORDERED BUT PATIENT STATED THAT SHE IS ALLERGIC TO ULTRAM AND ITS NOT LISTED ON HER ALLERGY LIST CALLED DR SCRUGGS OFFICE AND LEFT HIM A MESSAGE ZOFRAN GIVEN FOR NAUSEA ORDERED.AWAITING FOR MD TO RETURN CALL.
[2017-07-27 11:23] VITALS: BP 134/92
--- NOTE | 2017-07-27 11:40 | NUR ---
DR ASHLEY HAS NOT RETURNED CALL SO CALLED DR ASHLEY AGAIN AND LEFT HIM ANOTHER MESSAGE PATIENT IS GETTING VERY ANXIOUS SCREAMING AND UPSET.
--- NOTE | 2017-07-27 13:10 | NUR ---
CALLED THE NEPHROLOGY GROUP SPOKE WITH BRANDY INFORMED HIM THAT I AM STILL TRYING TO REACH DR IRIZARRY STATED WILL PAGE HIM.
--- NOTE | 2017-07-27 14:00 | NUR ---
ANOTHER CALL TO DR IRIZARRY OFFICE AGAIN SPOKE WITH SAL STATED WILL PAGE THE DOCTOR.PATIENT CONTINUES TO BE AGITATED AND RESTLESS UNABLE TO REDIRECT ASKING FOR MORPHINE AWAITING FOR RETURN FROM THE DOCTOR.
--- NOTE | 2017-07-27 14:10 | NUR ---
DR IRIZARRY HERE AWARE THAT I HAVE BEEN TRYING TO REACH HIM RECONCILED PATIENT HOME MEDICATIONS NOTIFIED HIM THAT PATIENT STATED THAT SHE IS ALLERGIC TO TRAMADOL STATED SHE IS NOT AND DECLINED TO ORDER ANY OTHER PAIN MEDICATIONS AT THIS TIME.
[2017-07-27] MEDS ORDERED: hydrOXYzine HCL 25 MG TABLET PO PRN (14:15)
[2017-07-27] MEDS ORDERED: DILTIAZEM HCL 30 MG TABLET PO PRN (14:15)
[2017-07-27] MEDS ORDERED: ACETAMINOPHEN ES 500 MG TABLET PO PRN ×2 (14:15→14:45)
[2017-07-27] MEDS: AMLODIPINE 10 MG TABLET PO SCH (14:15)
[2017-07-27] MEDS ORDERED: ONDANSETRON HCL 4 MG TABLET PO PRN (14:30)
[2017-07-27] MEDS ORDERED: NITROGLYCERIN 0.4 MG/TAB BOTTLE SL PRN (14:30)
[2017-07-27] MEDS ORDERED: POLYVINYL ALCOHOL OPHT DROPS 15 ML BOTTLE EACHEYE PRN (14:30)
[2017-07-27] MEDS: CLONAZEPAM 1 MG TABLET PO PRN ×2 (14:35→20:41)
[2017-07-27] MEDS: GABAPENTIN 400 MG CAPSULE PO SCH ×2 (14:36→20:35)
[2017-07-27] MEDS: TAMSULOSIN HCL 0.4 MG CAP.SR.24H PO SCH (14:47)
[2017-07-27] MEDS: METHOCARBAMOL 500 MG TABLET PO PRN ×2 (15:29→23:07)
--- NOTE | 2017-07-27 15:30 | NUR ---
PATIENT IS NOW AGREEABLE TO TAKE ROBAXIN GIVEN ORDERED AND WILL CONTINUE TO OBSERVE.
[2017-07-27 15:54] VITALS: BP 127/67
[2017-07-27] MEDS: SUCRALFATE 1 G/10 ML LIQUID UDC PO SCH ×2 (16:38→23:07)
[2017-07-27] MEDS: PANTOPRAZOLE SODIUM 40 MG TABLET.DR PO SCH (16:39)
[2017-07-27] MEDS: POTASSIUM CHLORIDE 20 MEQ TAB.PRT.SR PO SCH (16:39)
[2017-07-27] MEDS: FUROSEMIDE 80 MG TABLET PO SCH (16:46)
[2017-07-27] MEDS: MIRALAX 17 GM POWD.PACK PO SCH (16:46)
[2017-07-27] MEDS: CHOLECALCIFEROL 1,000 UNIT TABLET PO SCH (16:47)
[2017-07-27] MEDS ORDERED: DOCUSATE SODIUM 250 MG CAPSULE PO SCH (17:00)
--- NOTE | 2017-07-27 17:00 | NUR ---
MEDICATIONS GIVEN ORDERED AND SHE CONTINUES TO PICK AND CHOOSE WHICH MEDICATIONS SHE WANTED TO TAKE EVEN THOUGH THEY WERE ORDERED BY HER DOCTOR.PATIENTS RIGHTS TO REFUSED RESPECTED.
[2017-07-27] MEDS: APIXABAN 5 MG TABLET PO SCH (17:16)
--- NOTE | 2017-07-27 17:49 | NUR ---
PATIENT REQUESTED FOR DIETETIC TECH TO COME TO SEE HER MESSAGE LEFT FOR THE DIETETIC TECH PATIENT AWARE.
[2017-07-27] MEDS: MAGNESIUM OXIDE 400 MG TABLET PO SCH (18:41)
--- NOTE | 2017-07-27 19:10 | NUR ---
Awake when received. Requesting something to eat. Dolliver offered and preferred Ham from [employer]. Complaint that the sandwich has no taste at all. Stating that she's been discriminated. Statrs yelling/screaming and calling names. Will continue to monitor.
[2017-07-27] MEDS: BUDESONIDE 0.5 MG/2 ML NEBU IH SCH (19:54)
[2017-07-27 20:00] VITALS: BP 106/56
[2017-07-27] MEDS: ASCORBIC ACID 500 MG TABLET PO SCH (20:34)
[2017-07-27] MEDS: MELATONIN 3 MG TABLET PO SCH (20:34)
[2017-07-27] MEDS: MYCOPHENOLATE MOFETIL 250 MG CAPSULE PO SCH (20:35)
[2017-07-27] MEDS: MONTELUKAST SODIUM 10 MG TABLET PO SCH (20:35)
[2017-07-27] MEDS: DOXYCYCLINE HYCLATE 100 MG TABLET PO SCH (20:36)
[2017-07-27] MEDS ORDERED: DOXYCYCLINE HYCLATE 100 MG TABLET PO SCH (21:00)
--- NOTE | 2017-07-28 05:26 | NUR ---
Slept good. Quite needy, verbally abusive, demanding, uncooperative with care. All needs attended and met. Continue care as planned.
[2017-07-28 05:35] VITALS: BP 126/70
[2017-07-28] MEDS: METHOCARBAMOL 500 MG TABLET PO PRN ×3 (06:20→21:23)
[2017-07-28] MEDS: PANTOPRAZOLE SODIUM 40 MG TABLET.DR PO SCH ×2 (06:21→16:24)
[2017-07-28] MEDS: SUCRALFATE 1 G/10 ML LIQUID UDC PO SCH ×4 (06:21→21:32)
[2017-07-28] MEDS: BUDESONIDE 0.5 MG/2 ML NEBU IH SCH ×2 (07:26→19:03)
[2017-07-28] MEDS: CLONAZEPAM 1 MG TABLET PO PRN ×2 (08:58→17:04)
[2017-07-28] MEDS: MIRALAX 17 GM POWD.PACK PO SCH ×2 (08:59→16:25)
[2017-07-28] MEDS: ASCORBIC ACID 500 MG TABLET PO SCH ×2 (08:59→21:22)
[2017-07-28] MEDS: ARIPIPRAZOLE 5 MG TABLET PO SCH (08:59)
[2017-07-28] MEDS: POTASSIUM CHLORIDE 20 MEQ TAB.PRT.SR PO SCH ×3 (09:00→16:25)
[2017-07-28] MEDS: MYCOPHENOLATE MOFETIL 250 MG CAPSULE PO SCH ×2 (09:00→21:22)
[2017-07-28] MEDS: GABAPENTIN 400 MG CAPSULE PO SCH ×3 (09:00→21:20)
[2017-07-28] MEDS: AMLODIPINE 10 MG TABLET PO SCH (09:00)
[2017-07-28] MEDS: FUROSEMIDE 80 MG TABLET PO SCH ×2 (09:00→16:25)
[2017-07-28] MEDS ORDERED: HOME MED MISCELLANEOUS XX SCH (09:00)
[2017-07-28] MEDS: MULTIVITAMINS,THERAPEUTIC TABLET PO SCH (09:01)
[2017-07-28] MEDS: TAMSULOSIN HCL 0.4 MG CAP.SR.24H PO SCH (09:01)
[2017-07-28] MEDS: DOCUSATE SODIUM 250 MG CAPSULE PO SCH ×2 (09:01→16:24)
[2017-07-28] MEDS: CHOLECALCIFEROL 1,000 UNIT TABLET PO SCH ×2 (09:02→16:24)
[2017-07-28] MEDS: APIXABAN 5 MG TABLET PO SCH ×2 (09:02→16:25)
--- NOTE | 2017-07-28 09:22 | NUR ---
PATIENT IS AWAKE ALERT AND ORIENTED SEEMS QUIET AND COOPERATIVE AT THIS TIME REQUESTED FOR KLONOPIN GIVEN ORDERED ALL OTHER DUE MEDICATIONS GIVEN AND TOOK SOME REFUSED SOME ON ACCOUNT OF NOT TAKING THOSE ANYMORE.MADE COMFORTABLE AND WILL CONTINUE TO OBSERVE.
[2017-07-28] MEDS: DOXYCYCLINE HYCLATE 100 MG TABLET PO SCH ×2 (09:50→21:26)
[2017-07-28] MEDS: NITROGLYCERIN 0.1 MG/HR (=4 CM2) PATCH TD SCH (09:52)
[2017-07-28 11:39] VITALS: BP 106/71
[2017-07-28] MEDS: MAGNESIUM OXIDE 400 MG TABLET PO SCH ×2 (12:11→18:09)
[2017-07-28] MEDS: FERROUS SULFATE 325 MG TABEC PO SCH (12:11)
--- NOTE | 2017-07-28 15:25 | NUR ---
D/C PLANNING PATIENT IS FOR DISCHARGE TODAY AWAITING FOR APPROAVAL FROM THE [facility] IN [place] TODAY PER THE FAREBOX REPAIRER.
[2017-07-28 16:00] VITALS: BP 118/64
--- NOTE | 2017-07-28 16:40 | NUR ---
CALL RECEIVED FROM [facility] STATED WILL NOT TAKE THE PATIENT UNLESS SHE IS VOLUNTARY INFORMED HER THAT DR PENNY ALREADY DISCONTINUED THE HOLD AND THAT THE PATIENT IS VOLUNTARY SHE STATED THAT I SHOULD FAX IT TO HER.TOLD THE DOG TRAINER TO FAX THEM TO HER AT THE FAX NUMBER SHE PROVIDED
--- NOTE | 2017-07-28 17:15 | NUR ---
CALL RECEIVED FROM MEDHAT AT [facility] AND SHE STATED THAT THEY RECEIVED THE FAXED VOLUNTARY PAPERS BUT WILL BE UNABLE TO ACCEPT PATIENT AT THIS TIME.
--- NOTE | 2017-07-28 19:10 | NUR ---
Received patient awake, pleasant but needy and demanding. Snack provided per preference. Kept asking about the progress of her transfer/discharge. Instructed patient that we did not hear/received a call from the other hospital yet and will keep her informed. Continue to monitor.
[2017-07-28 20:00] VITALS: BP 104/63
[2017-07-28] MEDS: MONTELUKAST SODIUM 10 MG TABLET PO SCH (21:23)
[2017-07-28] MEDS: MELATONIN 3 MG TABLET PO SCH (21:24)
[2017-07-29 04:00] VITALS: BP 121/64
[2017-07-29] MEDS: PANTOPRAZOLE SODIUM 40 MG TABLET.DR PO SCH ×2 (04:54→17:26)
[2017-07-29] MEDS: METHOCARBAMOL 500 MG TABLET PO PRN ×2 (04:54→14:00)
[2017-07-29] MEDS: SUCRALFATE 1 G/10 ML LIQUID UDC PO SCH ×4 (04:54→20:57)
--- NOTE | 2017-07-29 06:18 | NUR ---
Slept well. Been very pleasant and appreciative despite being needy and demanding. No agitation, no verbal abuse incurred the whole night. All needs attended and met. Robaxin given as needed and ordered. Continue care as planned.
[2017-07-29 08:00] VITALS: BP 110/68
[2017-07-29] MEDS: BUDESONIDE 0.5 MG/2 ML NEBU IH SCH ×2 (08:14→20:20)
[2017-07-29] MEDS: DOCUSATE SODIUM 250 MG CAPSULE PO SCH ×2 (09:00→17:26)
[2017-07-29] MEDS: AMLODIPINE 10 MG TABLET PO SCH (09:00)
[2017-07-29] MEDS: FUROSEMIDE 80 MG TABLET PO SCH ×2 (09:00→17:00)
[2017-07-29] MEDS: MULTIVITAMINS,THERAPEUTIC TABLET PO SCH (09:00)
[2017-07-29] MEDS: TAMSULOSIN HCL 0.4 MG CAP.SR.24H PO SCH (09:00)
[2017-07-29] MEDS: GABAPENTIN 400 MG CAPSULE PO SCH ×3 (09:49→20:51)
[2017-07-29] MEDS: ARIPIPRAZOLE 5 MG TABLET PO SCH (09:50)
[2017-07-29] MEDS: MYCOPHENOLATE MOFETIL 250 MG CAPSULE PO SCH ×2 (09:51→20:52)
[2017-07-29] MEDS: APIXABAN 5 MG TABLET PO SCH ×2 (09:52→17:26)
[2017-07-29] MEDS: MIRALAX 17 GM POWD.PACK PO SCH ×2 (09:55→17:00)
[2017-07-29] MEDS: POTASSIUM CHLORIDE 20 MEQ TAB.PRT.SR PO SCH ×3 (09:55→17:26)
[2017-07-29] MEDS: CLONAZEPAM 1 MG TABLET PO PRN ×2 (09:57→17:27)
[2017-07-29] MEDS: ASCORBIC ACID 500 MG TABLET PO SCH ×2 (09:58→20:52)
[2017-07-29] MEDS: DOXYCYCLINE HYCLATE 100 MG TABLET PO SCH ×2 (09:58→20:52)
[2017-07-29] MEDS: NITROGLYCERIN 0.1 MG/HR (=4 CM2) PATCH TD SCH (09:59)
[2017-07-29] MEDS: CHOLECALCIFEROL 1,000 UNIT TABLET PO SCH ×2 (09:59→17:26)
[2017-07-29 11:13] VITALS: BP 110/68
[2017-07-29] MEDS: MAGNESIUM OXIDE 400 MG TABLET PO SCH ×2 (11:21→19:19)
[2017-07-29] MEDS: FERROUS SULFATE 325 MG TABEC PO SCH (11:21)
[2017-07-29 15:22] VITALS: BP 105/59
--- NOTE | 2017-07-29 18:15 | NUR ---
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 PT HAS SQUEEZING RIGHT ARM PAIN WITH JAW PAIN. MD TIE PRESSER CALLED DR SPENCER, STAT EKG AND TROPONIN ORDERED. PT RR 18, HR93, BP 110/60, DENIES SOB ON RA WITH SPO2 AT 96%. PT STATES SHE FEELS ANXIOUS AND FRUSTRATED D/T WAITING IN HOSPITAL FOR PLACEMENT IN FACILITY. SHE DENIES MD CAME TO SEE HER TODAY AND RN REITERATED THAT MD AND PSYCH WROTE EVALUATING NOTE AND SAY SHE WAS EVALUATED. PT STATES SHE IS UPSET BUT HER PSYCHOLOGIST CALLED HER AND THAT MADE HER FEEL BETTER. WILL NOTIFY MD OF EKG AND TROPONIN RESULTS. WILL CONT TO MONITOR.
--- NOTE | 2017-07-29 19:20 | NUR ---
Awake during initial rounds, Denies any pain, numbness on right arm, chest pain at this time. Requested snacks for now, given with soda. Will monitor.
[2017-07-29 20:00] VITALS: BP 124/74
[2017-07-29] MEDS: MONTELUKAST SODIUM 10 MG TABLET PO SCH (20:52)
[2017-07-29] MEDS: MELATONIN 3 MG TABLET PO SCH (20:54)
[2017-07-29] MEDS: IBUPROFEN 600 MG TABLET PO PRN (21:03)
--- NOTE | 2017-07-29 21:05 | NUR ---
Medicated with Motrin 600 mg as ordered and needed for complaint of back pain. Will monitor.
--- NOTE | 2017-07-29 22:25 | NUR ---
Sleeping during rounds.
[2017-07-30] MEDS: IBUPROFEN 600 MG TABLET PO PRN ×4 (02:10→22:28)
[2017-07-30] MEDS: METHOCARBAMOL 500 MG TABLET PO PRN ×3 (02:10→22:28)
--- NOTE | 2017-07-30 02:10 | NUR ---
Awakened and requesting Robaxin and Motrin at this time. Will monitor.
[2017-07-30 04:00] VITALS: BP 99/54
[2017-07-30] MEDS: SUCRALFATE 1 G/10 ML LIQUID UDC PO SCH ×4 (06:21→22:07)
[2017-07-30] MEDS: PANTOPRAZOLE SODIUM 40 MG TABLET.DR PO SCH ×2 (06:21→16:51)
--- NOTE | 2017-07-30 06:33 | NUR ---
Awakened for AM meds. No complaint presented. Very pleasant today. No complaint presented, very appreciative and polite. Denies any pain/discomforts. Continue care as planned.
[2017-07-30] MEDS: BUDESONIDE 0.5 MG/2 ML NEBU IH SCH ×2 (07:17→19:30)
--- NOTE | 2017-07-30 07:49 | NUR ---
Awake, alert, oriented x 3, sitting on bed, calm and cooperative
[2017-07-30 08:00] VITALS: BP 120/61
[2017-07-30] MEDS: POTASSIUM CHLORIDE 20 MEQ TAB.PRT.SR PO SCH ×3 (09:00→16:52)
[2017-07-30] MEDS: FUROSEMIDE 80 MG TABLET PO SCH ×2 (09:00→16:52)
[2017-07-30] MEDS: AMLODIPINE 10 MG TABLET PO SCH (09:00)
[2017-07-30] MEDS: GABAPENTIN 400 MG CAPSULE PO SCH ×3 (09:16→20:18)
[2017-07-30] MEDS: ARIPIPRAZOLE 5 MG TABLET PO SCH (09:17)
[2017-07-30] MEDS: MYCOPHENOLATE MOFETIL 250 MG CAPSULE PO SCH ×2 (09:18→20:18)
[2017-07-30] MEDS: TAMSULOSIN HCL 0.4 MG CAP.SR.24H PO SCH (09:19)
[2017-07-30] MEDS: DOCUSATE SODIUM 250 MG CAPSULE PO SCH ×2 (09:19→16:50)
[2017-07-30] MEDS: APIXABAN 5 MG TABLET PO SCH ×2 (09:19→16:50)
[2017-07-30] MEDS: MULTIVITAMINS,THERAPEUTIC TABLET PO SCH (09:20)
[2017-07-30] MEDS: MIRALAX 17 GM POWD.PACK PO SCH ×2 (09:20→16:50)
[2017-07-30] MEDS: CHOLECALCIFEROL 1,000 UNIT TABLET PO SCH ×2 (09:21→16:51)
[2017-07-30] MEDS: ASCORBIC ACID 500 MG TABLET PO SCH ×2 (09:21→20:19)
[2017-07-30] MEDS: DOXYCYCLINE HYCLATE 100 MG TABLET PO SCH ×2 (09:21→20:18)
[2017-07-30] MEDS: CLONAZEPAM 1 MG TABLET PO PRN ×3 (09:22→22:28)
--- NOTE | 2017-07-30 09:22 | NUR ---
Feeling anxious and complaining of back pain. Klonopin and Ibuprofen po given with relief
[2017-07-30] MEDS: NITROGLYCERIN 0.1 MG/HR (=4 CM2) PATCH TD SCH (09:23)
--- NOTE | 2017-07-30 10:00 | NUR ---
Assisted out of bed by PT, ambulated in the hallway with FWW
--- NOTE | 2017-07-30 11:30 | NUR ---
With pain, Robaxin po given with relief
[2017-07-30] MEDS: MAGNESIUM OXIDE 400 MG TABLET PO SCH ×2 (11:31→19:00)
[2017-07-30] MEDS: FERROUS SULFATE 325 MG TABEC PO SCH (11:31)
--- NOTE | 2017-07-30 14:47 | NUR ---
Assisted out of bed, ambulated in the hallway 2x with FWW. Anxious regarding acceptance of placement
[2017-07-30 15:15] VITALS: BP 114/79
--- NOTE | 2017-07-30 18:45 | NUR ---
Not in distress. on & off O2 at 3L/NC. Calm and cooperative.
[2017-07-30 19:00] VITALS: BP 109/53
[2017-07-30] MEDS: MONTELUKAST SODIUM 10 MG TABLET PO SCH (20:18)
[2017-07-30] MEDS: MELATONIN 3 MG TABLET PO SCH (20:18)
--- NOTE | 2017-07-30 20:20 | NUR ---
PATIENT AWAKE IN BED. ALERT TO SELF. FLAT AFFECT WHEN APPROACHED. PATIENT DOES NOT WANT TO ENGAGE IN CONVERSATION. BROUGHT PATIENT HS MEDS AND EXPLAINED IN FULL DETAIL MEDICATIONS AND IMPORTANCE OF MEDS. PATIENT REFUSED TO TAKE ANY MEDS AT THIS TIME. DIRECTOR OF EVENT MARKETING NOTIFIED. BED ALARM ON. ALL NEEDS ATTENDED. WILL CONTINUE TO MONITOR.
--- NOTE | 2017-07-30 21:00 | NUR ---
SON CALLED TO INFORM THAT HIS MOTHER JUST CALLED HIM FROM HER CELL PHONE AND PER THE SON, PATIENT VERBALIZED, "I WANT TO HARM MYSELF." SON IS VERY CONCERNED AND STATED THAT THIS IS HIS MOMS TRIGGER POINT. NOTIFIED CAREER SERVICES COORDINATOR AND CALLED OUT TO DR. LOPEZ STRIP MACHINE TENDER FOR DR. CHAWLA FOR FURTHER ORDERS. PROVIDED SAFE AND THERAPEUTIC ENVIRONMENT. ALL NEEDS ATTENDED. WILL CONTINUE TO MONITOR AND CLOSELY OBSERVE.
--- NOTE | 2017-07-30 21:30 | NUR ---
RECEIVED NEW ORDERS FROM DR. LOPEZ. RECEIVED VERBAL ORDER FOR PATIENT TO HAVE 1:1 SITTER AT BEDSIDE FOR SAFETY/CLOSE MONITORING AND FOR DR. VÁSQUEZ TO COME ASSESS PATIENT IN AM. NOTIFIED PLASTERING SUPERVISOR AND ENDORSED TO MENTAL HEALTH CHARGE NURSE WHO INFORMED THAT NEW "PSYCH CONSULT" NEEDS TO BE RE-ORDERED. ALL NEEDS ATTENDED. SITTER AT BEDSIDE FOR SAFETY. ALL NEEDS ATTENDED. WILL CONTINUE TO MONITOR.
[2017-07-31 04:00] VITALS: BP 125/65
[2017-07-31] MEDS: CLONAZEPAM 1 MG TABLET PO PRN ×3 (04:18→16:44)
[2017-07-31] MEDS: IBUPROFEN 600 MG TABLET PO PRN ×3 (04:18→16:44)
[2017-07-31] MEDS: PANTOPRAZOLE SODIUM 40 MG TABLET.DR PO SCH ×2 (06:36→16:44)
--- NOTE | 2017-07-31 07:05 | NUR ---
PATIENT ASLEEP IN BED. SITTER AT BESIDE FOR SAFETY. PATIENT "DID NOT" VERBALIZE ANY MORE FEELINGS OR THOUGHTS OF SELF HARM. CLOSELY MONITORED. BED ALARM ON. CALL LIGHT IN REACH. ALL NEEDS ATTENDED. WILL CONTINUE TO MONITOR.
[2017-07-31] MEDS: BUDESONIDE 0.5 MG/2 ML NEBU IH SCH ×2 (07:45→19:28)
[2017-07-31] MEDS: METHOCARBAMOL 500 MG TABLET PO PRN ×2 (07:53→20:27)
[2017-07-31] MEDS: GABAPENTIN 400 MG CAPSULE PO SCH ×3 (07:53→20:26)
[2017-07-31] MEDS: SUCRALFATE 1 G/10 ML LIQUID UDC PO SCH ×4 (07:53→22:30)
[2017-07-31 08:58] VITALS: BP 134/76
--- NOTE | 2017-07-31 09:00 | NUR ---
Patient resting in bed, in no distress. Patient refused medications scheduled at 0900, stated "I am not taking my medications except robaxin, motrin and klonopin and I stand my ground". Patient was irritated with people coming in/out of her room. Discussed with patients the risks/benefits of taking/not taking medications, made several attempts but patient still refused. Patient verbalized understanding regarding patient teachings/discussion. Will re attempt to offer medications later. Patient however allowed vital signs to be taken. No suicidal ideations expressed at this time. Safety measures in place, 1:1 sitter provided for safety. Will continue to monitor.
[2017-07-31] MEDS: MIRALAX 17 GM POWD.PACK PO SCH ×2 (10:00→16:45)
[2017-07-31] MEDS: DOCUSATE SODIUM 250 MG CAPSULE PO SCH ×2 (10:00→16:45)
[2017-07-31] MEDS: POTASSIUM CHLORIDE 20 MEQ TAB.PRT.SR PO SCH ×3 (10:00→16:45)
[2017-07-31] MEDS: AMLODIPINE 10 MG TABLET PO SCH (10:00)
[2017-07-31] MEDS: FUROSEMIDE 80 MG TABLET PO SCH ×2 (10:00→16:45)
[2017-07-31] MEDS: CHOLECALCIFEROL 1,000 UNIT TABLET PO SCH ×2 (10:26→16:44)
[2017-07-31] MEDS: DOXYCYCLINE HYCLATE 100 MG TABLET PO SCH ×2 (10:26→20:27)
[2017-07-31] MEDS: ASCORBIC ACID 500 MG TABLET PO SCH ×2 (10:26→20:27)
[2017-07-31] MEDS: MULTIVITAMINS,THERAPEUTIC TABLET PO SCH (10:27)
[2017-07-31] MEDS: TAMSULOSIN HCL 0.4 MG CAP.SR.24H PO SCH (10:27)
[2017-07-31] MEDS: NITROGLYCERIN 0.1 MG/HR (=4 CM2) PATCH TD SCH (10:30)
[2017-07-31] MEDS: APIXABAN 5 MG TABLET PO SCH ×2 (10:30→16:46)
[2017-07-31] MEDS: MAGNESIUM OXIDE 400 MG TABLET PO SCH ×2 (10:38→20:26)
[2017-07-31] MEDS: MYCOPHENOLATE MOFETIL 250 MG CAPSULE PO SCH ×2 (10:39→20:26)
[2017-07-31] MEDS: FERROUS SULFATE 325 MG TABEC PO SCH (10:39)
--- NOTE | 2017-07-31 11:30 | NUR ---
Patient walked 2 rounds on the unit with walker and assistance w/staff. Patient noted with steady gait, no SOB, no discomfort. Patient is pleased/satisfied after the walk. Will continue to monitor.
[2017-07-31 12:15] VITALS: BP 126/83
[2017-07-31] MEDS: ARIPIPRAZOLE 5 MG TABLET PO SCH (12:33)
--- NOTE | 2017-07-31 15:30 | NUR ---
Patient upset, screaming, throwing objects to the sitter. Several attempts made to calm patient down.
[2017-07-31] MEDS ORDERED: diphenhydrAMINE 50 MG/1 ML VIAL IM ONE (16:30)
[2017-07-31] MEDS ORDERED: LORAZEPAM 2 MG/1 ML VIAL IM ONE ×2 (16:30)
[2017-07-31] MEDS ORDERED: HALOPERIDOL LACTATE 5 MG/1 ML VIAL IM ONE (16:30)
--- NOTE | 2017-07-31 18:00 | NUR ---
Called Dr. Caraballo regarding patient's concerns. Per MD, will take care of concerns tomorrow morning. Patient informed.
[2017-07-31 19:00] VITALS: BP 108/71
--- NOTE | 2017-07-31 19:45 | NUR ---
RECEIVED PATIENT AWAKE IN BED. A/O X4. APPROPRIATE AND PLEASANT WHEN APPROACHED. NO C/O PAIN OR DISCOMFORT AT THIS TIME. NO RESP. DISTRESS NOTED. SITTER AT BEDSIDE FOR SAFETY. PATIENT DENIES ANY THOUGHTS OR FEELINGS OF "SELF HARM" OR "SUICIDE IDEATION." CALL LIGHT IN REACH. ALL NEEDS ATTENDED. WILL CONTINUE TO MONITOR.
[2017-07-31] MEDS: MELATONIN 3 MG TABLET PO SCH (20:26)
[2017-07-31] MEDS: MONTELUKAST SODIUM 10 MG TABLET PO SCH (20:27)
[2017-08-01] MEDS: CLONAZEPAM 1 MG TABLET PO PRN ×4 (02:41→20:35)
[2017-08-01] MEDS: METHOCARBAMOL 500 MG TABLET PO PRN ×3 (04:22→21:24)
[2017-08-01 05:12] VITALS: BP 107/62
[2017-08-01] MEDS: PANTOPRAZOLE SODIUM 40 MG TABLET.DR PO SCH ×2 (06:21→17:01)
[2017-08-01] MEDS: SUCRALFATE 1 G/10 ML LIQUID UDC PO SCH ×4 (06:33→22:41)
--- NOTE | 2017-08-01 06:38 | NUR ---
PATIENT AWAKE ON BED. SLEPT 4 HRS DURING THE SHIFT. AMBULATED WITH SITTER THROUGH THE MR[address] WAY DURING THE SHIFT. MEDICATIONS ADMINISTERED ORDERED. NO SUICIDAL IDEATION NOTED. 1:1 SITTER AT THE BED SIDE.
[2017-08-01] MEDS: BUDESONIDE 0.5 MG/2 ML NEBU IH SCH ×2 (07:39→19:19)
[2017-08-01] MEDS: DOXYCYCLINE HYCLATE 100 MG TABLET PO SCH ×2 (08:38→20:16)
[2017-08-01] MEDS: IBUPROFEN 600 MG TABLET PO PRN ×3 (08:38→20:35)
[2017-08-01] MEDS: TAMSULOSIN HCL 0.4 MG CAP.SR.24H PO SCH (08:38)
[2017-08-01] MEDS: GABAPENTIN 400 MG CAPSULE PO SCH ×3 (08:38→20:18)
[2017-08-01] MEDS: ARIPIPRAZOLE 5 MG TABLET PO SCH (08:38)
[2017-08-01] MEDS: CHOLECALCIFEROL 1,000 UNIT TABLET PO SCH ×2 (08:39→17:01)
[2017-08-01] MEDS: MULTIVITAMINS,THERAPEUTIC TABLET PO SCH (08:39)
[2017-08-01] MEDS: DOCUSATE SODIUM 250 MG CAPSULE PO SCH ×2 (08:39→17:00)
[2017-08-01] MEDS: ASCORBIC ACID 500 MG TABLET PO SCH ×2 (08:39→20:18)
[2017-08-01] MEDS: MYCOPHENOLATE MOFETIL 250 MG CAPSULE PO SCH ×2 (08:39→20:19)
[2017-08-01] MEDS: POTASSIUM CHLORIDE 20 MEQ TAB.PRT.SR PO SCH ×3 (08:40→17:00)
[2017-08-01] MEDS: FUROSEMIDE 80 MG TABLET PO SCH ×2 (08:40→17:00)
[2017-08-01] MEDS: APIXABAN 5 MG TABLET PO SCH ×2 (08:40→17:01)
[2017-08-01] MEDS: MIRALAX 17 GM POWD.PACK PO SCH ×2 (08:40→17:00)
[2017-08-01] MEDS: NITROGLYCERIN 0.1 MG/HR (=4 CM2) PATCH TD SCH (08:41)
[2017-08-01] MEDS: AMLODIPINE 10 MG TABLET PO SCH (08:41)
[2017-08-01] MEDS: FERROUS SULFATE 325 MG TABEC PO SCH (10:40)
[2017-08-01] MEDS: MAGNESIUM OXIDE 400 MG TABLET PO SCH ×2 (10:40→20:16)
[2017-08-01 11:03] VITALS: BP 141/79
--- NOTE | 2017-08-01 13:00 | NUR ---
Patient seen by Dr. Carbaallo. took stitches off her right upper chest, dressing applied. Patient tolerated procedure well, no drainage/swelling noted. VS stable, afebrile. Will continue to monitor.
[2017-08-01 17:45] VITALS: BP 131/79
--- NOTE | 2017-08-01 20:00 | NUR ---
RECEIVED PT AWAKE IN BED SHE'S ALERT AND ORIENTED X4 AND ABLE TO STATE HER NEEDS. SHE HAS MILD AGITATION AND ANXIETY CALLING OUT FOUL WORDS. PRN ANXIETY MEDS NOT DUE YET, PT INFORMED SHE WILL BE MEDICATED SOON MEDS ARE DUE. SITTER REMAINS AT BED SIDE, WILL CONTINUE TO MONITOR PT
[2017-08-01] MEDS: MONTELUKAST SODIUM 10 MG TABLET PO SCH (20:19)
[2017-08-01] MEDS: MELATONIN 3 MG TABLET PO SCH (21:24)
[2017-08-02] MEDS: IBUPROFEN 600 MG TABLET PO PRN ×4 (04:11→23:04)
[2017-08-02] MEDS: CLONAZEPAM 1 MG TABLET PO PRN ×4 (04:12→23:04)
[2017-08-02] MEDS: METHOCARBAMOL 500 MG TABLET PO PRN ×3 (05:30→23:04)
--- NOTE | 2017-08-02 05:34 | NUR ---
PATIENT SLEPT ON AND OFF THROUGHOUT THE NIGHT. SHE HAD EPISODES OF ANXIETY AND AGITATION, MEDICATED X2 WITH PRN ANXIETY MEDS. PRN PAIN MEDS WERE GIVEN X2. SITTER REMAINS AT BED SIDE WITH CLOSE MONITORING OF PATIENT. SAFETY MEASURES IN PLACE, CALL LIGHT WITHIN PATIENT'S REACH
[2017-08-02] MEDS: PANTOPRAZOLE SODIUM 40 MG TABLET.DR PO SCH ×2 (06:32→17:21)
[2017-08-02] MEDS: SUCRALFATE 1 G/10 ML LIQUID UDC PO SCH ×4 (06:32→22:18)
[2017-08-02] MEDS: BUDESONIDE 0.5 MG/2 ML NEBU IH SCH ×2 (07:40→19:37)
--- NOTE | 2017-08-02 08:00 | NUR ---
Awake, alert, oriented x 4. With modified sitter. Discussed plan of care
[2017-08-02] MEDS ORDERED: NEOMY/BACITRAC/POLYMI OINT 28.35 GM TUBE TOP SCH (09:00)
[2017-08-02] MEDS: AMLODIPINE 10 MG TABLET PO SCH (09:00)
[2017-08-02] MEDS: POTASSIUM CHLORIDE 20 MEQ TAB.PRT.SR PO SCH ×3 (09:00→17:00)
[2017-08-02] MEDS: MIRALAX 17 GM POWD.PACK PO SCH ×2 (09:00→17:00)
[2017-08-02] MEDS: DOCUSATE SODIUM 250 MG CAPSULE PO SCH ×2 (09:00→17:00)
[2017-08-02] MEDS: GABAPENTIN 400 MG CAPSULE PO SCH ×3 (10:00→20:28)
[2017-08-02] MEDS: ARIPIPRAZOLE 5 MG TABLET PO SCH (10:01)
[2017-08-02] MEDS: MYCOPHENOLATE MOFETIL 250 MG CAPSULE PO SCH ×2 (10:02→20:27)
[2017-08-02] MEDS: LOSARTAN POTASSIUM 25 MG TABLET PO SCH ×2 (10:08→20:27)
[2017-08-02] MEDS: BUMETANIDE 1 MG TABLET PO SCH ×2 (10:09→17:00)
[2017-08-02] MEDS: TAMSULOSIN HCL 0.4 MG CAP.SR.24H PO SCH (10:09)
[2017-08-02] MEDS: APIXABAN 5 MG TABLET PO SCH ×2 (10:09→20:28)
[2017-08-02] MEDS: DOXYCYCLINE HYCLATE 100 MG TABLET PO SCH ×2 (10:11→22:18)
[2017-08-02] MEDS: CHOLECALCIFEROL 1,000 UNIT TABLET PO SCH ×2 (10:13→17:22)
[2017-08-02] MEDS: MULTIVITAMINS,THERAPEUTIC TABLET PO SCH (10:14)
[2017-08-02] MEDS: ASCORBIC ACID 500 MG TABLET PO SCH ×2 (10:14→20:32)
[2017-08-02] MEDS: NITROGLYCERIN 0.1 MG/HR (=4 CM2) PATCH TD SCH (10:15)
[2017-08-02] MEDS: CYANOCOBALAMIN 1,000 MCG TABLET PO SCH ×2 (10:21→17:22)
[2017-08-02] MEDS: VERAPAMIL SR 180 MG TABLET.SA PO SCH ×3 (10:24→23:15)
--- NOTE | 2017-08-02 10:58 | NUR ---
Clinical pharmacy note-Vancomycin dosing per pharmacy S: To start Vancomycin dosing on this patient for cellulitis O: BUN 14(07/26) Scr 0.5(07/26) WBC 4.4 Temp 97.7 A/P: Will start Vancomycin 2000mg IV every 12hrs (first dose at 1100) and draw trough by 4th dose(not ordered yet) for expected trough around 16. Will monitor daily.
[2017-08-02] MEDS ORDERED: BUME1TAB4 PO (11:25)
[2017-08-02] MEDS ORDERED: VERA180T PO (11:26)
[2017-08-02 11:35] VITALS: BP 133/71
[2017-08-02] MEDS: MAGNESIUM OXIDE 400 MG TABLET PO SCH ×2 (12:13→18:19)
[2017-08-02] MEDS: VANCOMYCIN IV 2,000 MG in IV DEXTROSE 5% 500 ML IV SCH ×2 (12:13→22:34)
[2017-08-02] MEDS: FERROUS SULFATE 325 MG TABEC PO SCH (12:13)
--- NOTE | 2017-08-02 12:13 | NUR ---
Noted redness on incision site right chest, fabi cath placement. Vanco IV given after saline lock placed left upper arm.
--- NOTE | 2017-08-02 13:30 | NUR ---
Spoke with Dr. Vasquez, patient without suicidal ideation, discontinue sitter.
[2017-08-02] MEDS: ONDANSETRON 4 MG/2 ML VIAL IV PRN (18:19)
--- NOTE | 2017-08-02 19:00 | NUR ---
No suicidal ideation, calm, cooperative with care.
[2017-08-02 20:00] VITALS: BP 118/64
--- NOTE | 2017-08-02 20:00 | NUR ---
PATIENT AWAKE IN BED. A/O X4. PLEASANT WHEN APPROACHED. CALM AND COOPERATIVE WITH CARE. DENIES ANY THOUGHTS OR FEELINGS OF S.I OR SELF HARM. VSS. DENIES PAIN OR DISCOMFORT. NO RESP. DISTRESS NOTED. H/L INTACT AND NOTED TO LEFT UPPER ARM #22 GAUGE. BED ALARM ON. CALL LIGHT IN REACH. ALL NEEDS ATTENDED. WILL CONTINUE TO MONITOR AND ASSESS.
[2017-08-02] MEDS: MELATONIN 3 MG TABLET PO SCH (20:28)
[2017-08-02] MEDS: MONTELUKAST SODIUM 10 MG TABLET PO SCH (20:29)
[2017-08-02] MEDS: TOPIRAMATE 25 MG TABLET PO SCH (20:30)
--- NOTE | 2017-08-02 23:16 | NUR ---
PATIENT AWAKE IN BED, RECHECKED BP- WNL. GIVEN ROUTINE VERAPAMIL ORDERED. WILL CONTINUE TO MONITOR.
[2017-08-03] MEDS: IBUPROFEN 600 MG TABLET PO PRN ×3 (05:44→20:24)
[2017-08-03] MEDS: CLONAZEPAM 1 MG TABLET PO PRN ×3 (05:44→20:24)
[2017-08-03] MEDS: PANTOPRAZOLE SODIUM 40 MG TABLET.DR PO SCH ×2 (05:52→16:53)
[2017-08-03 05:59] VITALS: BP 125/74
--- NOTE | 2017-08-03 06:27 | NUR ---
PATIENT AWAKE IN BED, SLEPT WELL THROUGHOUT THE NIGHT. NO COMPLAINTS AT THIS TIME. VSS. CALL LIGHT IN REACH. ALL NEEDS ATTENDED. WILL CONTINUE TO MONITOR AND ASSESS.
[2017-08-03] MEDS: SUCRALFATE 1 G/10 ML LIQUID UDC PO SCH ×4 (06:35→22:32)
[2017-08-03 07:31] LABS: CREATININE 0.6 mg/dL (0.6-1.3); POTASSIUM 4.2 mmol/L (3.5-5.1)
[2017-08-03] MEDS: BUDESONIDE 0.5 MG/2 ML NEBU IH SCH ×2 (07:35→19:30)
[2017-08-03] MEDS: DOCUSATE SODIUM 250 MG CAPSULE PO SCH ×2 (08:18→16:29)
[2017-08-03] MEDS: MIRALAX 17 GM POWD.PACK PO SCH ×2 (08:18→16:29)
[2017-08-03] MEDS: GABAPENTIN 400 MG CAPSULE PO SCH ×3 (08:19→20:20)
[2017-08-03] MEDS: ARIPIPRAZOLE 5 MG TABLET PO SCH (08:19)
[2017-08-03] MEDS: ASCORBIC ACID 500 MG TABLET PO SCH ×2 (08:20→20:23)
[2017-08-03] MEDS: DOXYCYCLINE HYCLATE 100 MG TABLET PO SCH ×2 (08:20→20:23)
[2017-08-03] MEDS: BUMETANIDE 1 MG TABLET PO SCH ×2 (08:20→16:31)
[2017-08-03] MEDS: CYANOCOBALAMIN 1,000 MCG TABLET PO SCH ×2 (08:20→16:53)
[2017-08-03] MEDS: TAMSULOSIN HCL 0.4 MG CAP.SR.24H PO SCH (08:21)
[2017-08-03] MEDS: CHOLECALCIFEROL 1,000 UNIT TABLET PO SCH ×2 (08:21→16:53)
[2017-08-03] MEDS: TOPIRAMATE 25 MG TABLET PO SCH ×2 (08:21→20:23)
[2017-08-03] MEDS: MULTIVITAMINS,THERAPEUTIC TABLET PO SCH (08:22)
[2017-08-03] MEDS: APIXABAN 5 MG TABLET PO SCH ×2 (08:22→20:24)
[2017-08-03] MEDS: LOSARTAN POTASSIUM 25 MG TABLET PO SCH ×2 (08:22→20:25)
[2017-08-03] MEDS: POTASSIUM CHLORIDE 20 MEQ TAB.PRT.SR PO SCH ×3 (08:22→16:29)
[2017-08-03] MEDS: NITROGLYCERIN 0.1 MG/HR (=4 CM2) PATCH TD SCH (08:23)
--- NOTE | 2017-08-03 09:00 | NUR ---
Pt refused medications explained to pt purpose of each meds and risk of not taking them. Pt continues to refuse meds. (see EMAR).
[2017-08-03] MEDS: METHOCARBAMOL 500 MG TABLET PO PRN ×2 (09:59→20:23)
[2017-08-03] MEDS: MYCOPHENOLATE MOFETIL 250 MG CAPSULE PO SCH ×2 (09:59→20:20)
[2017-08-03] MEDS: VERAPAMIL SR 180 MG TABLET.SA PO SCH ×2 (09:59→20:28)
[2017-08-03] MEDS: FERROUS SULFATE 325 MG TABEC PO SCH (11:08)
[2017-08-03] MEDS: MAGNESIUM OXIDE 400 MG TABLET PO SCH ×2 (11:08→20:28)
[2017-08-03] MEDS: VANCOMYCIN IV 2,000 MG in IV DEXTROSE 5% 500 ML IV SCH ×2 (11:09→23:00)
--- NOTE | 2017-08-03 14:09 | NUR ---
Clinical pharmacy note-Vancomycin dosing per pharmacy S: To continue Vancomycin dosing on this patient for cellulitis ht 167.6 cm wt 124 kg O: BUN 21 Scr 0.6 WBC 4.4 (08/02) Temp 98.3 A/P: Will continue same dose of Vancomycin 2000mg IVPB every 12hrs for today. 3rd dose is due today at 1100. Plan to draw trough by 4th dose(ordered for 08/03 at 2230- RN has been informed to hold 2300 dose if vanco trough level is above 20 mcg/ml).Pharmacy shall check vanco level in am & adjust the dose if needed. Will monitor daily.
[2017-08-03 16:08] VITALS: BP 125/73
[2017-08-03] MEDS: ONDANSETRON 4 MG/2 ML VIAL IV PRN (16:53)
--- NOTE | 2017-08-03 18:00 | NUR ---
Pt is planned for discharge tomorrow at [facility] per brianagement. Pt is in no acute distress. Ambulated pt around hallway x 2 using FWW. Call light is within reach. Pt denies any c/o pain.
[2017-08-03 19:00] VITALS: BP 90/48
--- NOTE | 2017-08-03 20:01 | NUR ---
PT REFUSED PULMICORT TX AT THIS TIME. JESUS KENNEDY WAS NOTIFIED AND AWARE.
[2017-08-03] MEDS: LACTOBACILLUS RHAMNOSUS GG 1 EACH CAPSULE PO SCH (20:24)
[2017-08-03] MEDS: MELATONIN 3 MG TABLET PO SCH (20:25)
[2017-08-03] MEDS: MONTELUKAST SODIUM 10 MG TABLET PO SCH (20:28)
[2017-08-03 21:00] VITALS: BP 117/63
[2017-08-04] MEDS: CLONAZEPAM 1 MG TABLET PO PRN ×3 (02:27→14:29)
[2017-08-04] MEDS: IBUPROFEN 600 MG TABLET PO PRN ×3 (02:27→14:29)
[2017-08-04 04:00] VITALS: BP 104/59
[2017-08-04] MEDS: PANTOPRAZOLE SODIUM 40 MG TABLET.DR PO SCH ×2 (06:18→17:16)
[2017-08-04] MEDS: SUCRALFATE 1 G/10 ML LIQUID UDC PO SCH ×3 (06:35→14:28)
[2017-08-04] MEDS: METHOCARBAMOL 500 MG TABLET PO PRN (06:48)
--- NOTE | 2017-08-04 06:53 | NUR ---
PATIENT AWAKE IN BED. SLEPT WELL. ALL NEEDS ATTENDED.
[2017-08-04] MEDS: BUDESONIDE 0.5 MG/2 ML NEBU IH SCH (07:29)
[2017-08-04] MEDS ORDERED: LOSA25TA3 PO (07:39)
[2017-08-04] MEDS ORDERED: TOPI25TA PO (07:39)
[2017-08-04] MEDS: ONDANSETRON 4 MG/2 ML VIAL IV PRN (08:40)
[2017-08-04] MEDS: ARIPIPRAZOLE 5 MG TABLET PO SCH (08:45)
[2017-08-04] MEDS: TAMSULOSIN HCL 0.4 MG CAP.SR.24H PO SCH (08:45)
[2017-08-04] MEDS: CHOLECALCIFEROL 1,000 UNIT TABLET PO SCH ×2 (08:45→17:16)
[2017-08-04] MEDS: LACTOBACILLUS RHAMNOSUS GG 1 EACH CAPSULE PO SCH (08:45)
[2017-08-04] MEDS: CYANOCOBALAMIN 1,000 MCG TABLET PO SCH ×2 (08:46→17:19)
[2017-08-04] MEDS: DOXYCYCLINE HYCLATE 100 MG TABLET PO SCH (08:46)
[2017-08-04] MEDS: ASCORBIC ACID 500 MG TABLET PO SCH (08:46)
[2017-08-04] MEDS: VERAPAMIL SR 180 MG TABLET.SA PO SCH (08:46)
[2017-08-04] MEDS: GABAPENTIN 400 MG CAPSULE PO SCH ×2 (08:47→13:25)
[2017-08-04] MEDS: MULTIVITAMINS,THERAPEUTIC TABLET PO SCH (08:47)
[2017-08-04] MEDS: LOSARTAN POTASSIUM 25 MG TABLET PO SCH (08:48)
[2017-08-04] MEDS: DOCUSATE SODIUM 250 MG CAPSULE PO SCH ×2 (08:48→17:16)
[2017-08-04] MEDS: MYCOPHENOLATE MOFETIL 250 MG CAPSULE PO SCH (08:48)
[2017-08-04] MEDS: TOPIRAMATE 25 MG TABLET PO SCH (08:48)
[2017-08-04] MEDS: POTASSIUM CHLORIDE 20 MEQ TAB.PRT.SR PO SCH ×3 (08:49→17:00)
[2017-08-04] MEDS: MIRALAX 17 GM POWD.PACK PO SCH ×2 (08:49→17:00)
[2017-08-04] MEDS: BUMETANIDE 1 MG TABLET PO SCH ×2 (08:49→17:00)
[2017-08-04] MEDS: APIXABAN 5 MG TABLET PO SCH (08:55)
[2017-08-04] MEDS: NITROGLYCERIN 0.1 MG/HR (=4 CM2) PATCH TD SCH (08:55)
[2017-08-04] MEDS ORDERED: VANCOMYCIN IV 2,000 MG in IV DEXTROSE 5% 500 ML IV SCH (10:00)
[2017-08-04] MEDS ORDERED: TOPI100T38 PO (11:09)
[2017-08-04] MEDS: FERROUS SULFATE 325 MG TABEC PO SCH (11:45)
[2017-08-04] MEDS: MAGNESIUM OXIDE 400 MG TABLET PO SCH (11:45)
[2017-08-04] MEDS ORDERED: VANCOMYCIN IV 2,000 MG in IV NORMAL SALINE 500 ML IV SCH (14:11)
--- NOTE | 2017-08-04 15:09 | NUR ---
Clinical pharmacy note-Vancomycin dosing per pharmacy S: To continue Vancomycin dosing on this patient for cellulitis ht 167.6 cm wt 124 kg O: BUN 21 (08/03) Scr 0.6 (08/03) WBC 4.4 (08/02) Temp 98.5 Trough: 23.3 yesterday at 2230 A/P: Based on trough, changed regimen to 2gm q16hr for new estimated trough of 16.3, first dose today at 1000. Will order trough before 4th scheduled dose (not ordered yet). Will follow renal fxn and dose per level if were to become unstable. Will monitor
--- NOTE | 2017-08-04 15:34 | NUR ---
Patient noted resting in bed with eyes closed, no complaints of pain at this time, no signs of distress noted, call light in reach, bed alarm in place, bed locked and in lowest position, all needs met at this time
[2017-08-04 15:52] VITALS: BP 97/58
--- NOTE | 2017-08-04 17:40 | NUR ---
PATIENT DISCHARGED HOME VIA FACILITY VAN WITH WHEELCHAIR, DISCHARGED TO [facility], NO COMPLAINTS OF PAIN AT THIS TIME, NO SIGNS OF DISTRESS NOTED, DISCHARGE INSTRUCTIONS PROVIDED, EXIT CARE COMPLETED, 118/75, 76 PULSE, 97.7 ORAL TEMPERATURE, IV DISCONTINUED, ALL BELONGINGS ACCOUNTED FOR, PATIENT LEFT FACILITY IN STABLE CONDITION
--- NOTE | 2017-08-04 18:07 | NUR ---
NO SUICIDAL IDEATIONS NOTED ON DISCHARGE
[2017-08-05] MEDS ORDERED: VANCOMYCIN IV 2,000 MG in IV NORMAL SALINE 500 ML IV SCH (02:00)
== END 2017-08-04 17:35 | DRG 812 ==
LOC: ER 23:22 → CCU 07-22 21:46 → MED 07-23 20:30
PROVIDERS: ADMIT Nurse Practitioner Acute Care; ATTEND Internal Medicine
DX: T39.1X2A Poisoning by 4-Aminophenol derivatives, intentional self-harm, initial encounter (principal); G92 Toxic encephalopathy; M32.9 Systemic lupus erythematosus, unspecified; D68.59 Other primary thrombophilia; Z68.41 Body mass index [BMI] 40.0-44.9, adult; E66.01 Morbid (severe) obesity due to excess calories; T42.8X2A Poisoning by antiparkinsonism drugs and other central muscle-tone depressants, intentional self-harm, initial encounter; F31.9 Bipolar disorder, unspecified; Y92.092 Bedroom in other non-institutional residence as the place of occurrence of the external cause; K21.9 Gastro-esophageal reflux disease without esophagitis; Z86.718 Personal history of other venous thrombosis and embolism; Z86.711 Personal history of pulmonary embolism; Z71.3 Dietary counseling and surveillance; Z74.09 Other reduced mobility; Z86.61 Personal history of infections of the central nervous system; Z91.19 Patient's noncompliance with other medical treatment and regimen; M79.0 Rheumatism, unspecified; R21 Rash and other nonspecific skin eruption; Z79.01 Long term (current) use of anticoagulants; I10 Essential (primary) hypertension; M19.90 Unspecified osteoarthritis, unspecified site; Z91.81 History of falling; E53.8 Deficiency of other specified B group vitamins
CPT/HCPCS: 36415; 51702; 70030-TC; 70450; 71045; 80307; 83550; 83605; 83735; 84100; 84443; 84703; 85025; 85730; 87040; 87086; 93005; 94640; 94664; 97116; 97530; A4663; G0480; G0480-TC; J0132; J2060; J2270; J2310; J2405; J3370; J3490; J7030; J7040; J7042; J7060; J7070; J7517; Q0162

== ENCOUNTER 2018-07-07 18:51 | Inpatient (IN) | payer OTHER, MEDICARE ==
[~2018-07-07] VITALS: Ht 157.5 cm; Wt 97.5 kg
[~2018-07-07 18:51] MED LIST changes: +ACET-73 GT; -ACET-73 PO; +APIX5TAB GT; -APIX5TAB PO; +ARIP30TA3 GT; -ARIP30TA3 PO; +ASCO-340 GT; -ASCO-340 PO; +BUME1TAB4 GT; +CHOL100062 GT; -CHOL100062 PO; +CLON1TAB GT; -CLON1TAB PO; -FURO80TA87 PO; +GABA-536 GT; -GABA-536 PO; +GABA400C GT; -GABA400C PO; +HYDR-3026 GT; -HYDR-3026 PO; +LOSA25TA3 PO; +MAGN400C GT; -MAGN400C PO; +MELA10TA3 GT; -MELA10TA3 PO; +METH500T GT; -METH500T PO; +MYCO500T GT; -MYCO500T PO; +ONDA4TAB5 GT; -ONDA4TAB5 PO; +PANT40TA4 GT; -PANT40TA4 PO; +POLY17PO4 GT; -POLY17PO4 PO; +POTA-88 GT; -POTA-88 PO; +TOPI25TA PO; +VERA180T PO
[2018-07-07] MEDS ORDERED: ONDANSETRON 4 MG/2 ML VIAL IV ONE ×2 (19:00→20:30)
[2018-07-07] MEDS ORDERED: MORPHINE SULFATE 2 MG/1 ML DISP.SYRIN IV ONE (19:00)
[2018-07-07] MEDS ORDERED: IV NORMAL SALINE 1000 ML BAG IV ONE (19:00)
[2018-07-07] MEDS ORDERED: MORPHINE SULFATE 4 MG/1 ML DISP.SYRIN ONE (19:05)
[2018-07-07] MEDS ORDERED: ONDANSETRON 4 MG/2 ML VIAL ONE ×2 (19:06→20:32)
[2018-07-07] MEDS ORDERED: FENT1PAT23 TD (19:17)
[2018-07-07] MEDS ORDERED: BENZ-38 GT (19:17)
[2018-07-07] MEDS ORDERED: CYAN10009 GT (19:17)
[2018-07-07] MEDS ORDERED: HYOS0.1273 GT (19:17)
[2018-07-07 19:25] LABS: EOSINOPHILS # (AUTO) 0.2 K/uL (0.0-0.7); HEMATOCRIT 34.6 % (31.2-41.9); HEMOGLOBIN 11.4 g/dL (10.9-14.3); LYMPHOCYTES # (AUTO) 1.3 K/uL (20.0-40.0); LYMPHOCYTES % (AUTO) 31.7 % (20.5-51.5); MEAN CORPUSCULAR HEMOGLOBIN 31.2 uug (24.7-32.8); MEAN CORPUSCULAR HGB CONC 33 g/dL (32.3-35.6); MEAN CORPUSCULAR VOLUME 94.6 fL (75.5-95.3); MONOCYTES # (AUTO) 0.7 K/uL (2.0-10.0); MONOCYTES % (AUTO) 17.3 % (0.0-11.0); NEUTROPHILS # (AUTO) 1.9 K/uL (1.8-8.9); PLATELET COUNT (AUTO) 229 K/uL (179-408); RED BLOOD CELL COUNT(AUTO) 3.65 MIL/uL (3.63-4.92); WHITE BLOOD COUNT (AUTO) 4.2 K/uL (3.8-11.8)
[2018-07-07 19:27] LABS: CREATININE 0.8 mg/dL (0.6-1.3); POTASSIUM 3.5 mmol/L (3.5-5.1)
[2018-07-07 19:33] LABS: BILIRUBIN,DIRECT 0.1 mg/dL (0.0-0.2); BILIRUBIN,TOTAL 0.3 mg/dL (0.2-1.0); TOTAL PROTEIN, SERUM 7.2 g/dL (6.4-8.2)
[2018-07-07] MEDS ORDERED: LOSA50TA39 GT (19:39)
[2018-07-07] MEDS ORDERED: DOXY100C GT (19:39)
[2018-07-07] MEDS ORDERED: PROM25SU10 RC (19:39)
[2018-07-07] MEDS ORDERED: HYDROMORPHONE 1 MG/1 ML DISP.SYRIN ONE ×2 (19:39→20:44)
[2018-07-07] MEDS ORDERED: NITR12SP7 TL (19:39)
[2018-07-07] MEDS ORDERED: OXYC10TA49 GT (19:39)
[2018-07-07] MEDS ORDERED: TIOT18CA3 IH (19:39)
--- NOTE | 2018-07-07 19:41 | NUR ---
Mitchell yeboah in ED - 07/07/18 at 1942 by ROSEMARY Pt out to ER for CT.
--- NOTE | 2018-07-07 19:42 | NUR ---
Pt out of ER for CT.
[2018-07-07 19:45] LABS: BAND % (MANUAL) 2 % (0-10); EOSINOPHILS % (MANUAL) 4 % (0-8); LYMPHOCYTES % (MANUAL) 28 % (20-40); MONOCYTES % (MANUAL) 17 % (2-10); NEUTROPHILS % (MANUAL) 49 % (42-75)
[2018-07-07] MEDS ORDERED: HYDROMORPHONE 1 MG/1 ML DISP.SYRIN IV ONE ×2 (19:45→20:45)
--- NOTE | 2018-07-07 20:00 | NUR ---
Pt back to ER from CT.
[2018-07-07] MEDS ORDERED: PIPERACILLIN/TAZOBACTAM/D5W 50 ML IV ONE (20:43)
[2018-07-07] MEDS ORDERED: PIPERACILLIN SODIUM/TAZOBACTAM 3.375 G in IV DEXTROSE 5% 50 ML IV ONE (20:45)
[2018-07-07] MEDS ORDERED: VANCOMYCIN IV 1,000 MG in IV DEXTROSE 5% 250 ML IV ONE (20:45)
[2018-07-07] MEDS ORDERED: VANCOMYCIN IV 200 ML ONE (21:01)
--- NOTE | 2018-07-07 21:25 | NUR ---
Spoke with [facility], spoke with Chevy, requested to have face sheet, CT, and progress note faxed to .
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
--- NOTE | 2018-07-07 22:33 | NUR ---
Spoke with Chevy from [facility], who requested a general surgeon to speak with ERMD and compare information obtained from imaging results.
--- NOTE | 2018-07-07 22:49 | NUR ---
Mitchell yeboah in [facility] - 07/07/18 at [address] Monsivais on panel call with Dr. Jose F Ca.
--- NOTE | 2018-07-07 23:00 | NUR ---
Dr. Monsivais on panel call with Dr. Ordoñez. Patient accepted to Tele for diagnosis Abdominal Wall Cellulitis.
[2018-07-07 23:04] LABS: *BILIRUBIN,URIN NEGATIVE (NEGATIVE); *BLOOD, URINE NEGATIVE (NEGATIVE); *CLARITY,URINE CLEAR (CLEAR); *COLOR,URINE LIGHT YELLOW (YELLOW); *KETONES,URINE NEGATIVE (NEGATIVE); *UROBILINOGEN,URINE 0.2 E.U./dl (NORMAL); LEUKOCYTE ESTERASE ,URINE TRACE (NEGATIVE); NITRITE, URINE NEGATIVE (NEGATIVE); UGLUCOSE NEGATIVE (NEGATIVE)
[2018-07-07 23:15] LABS: BACTERIA,URINE NONE SEEN /HPF (NONE SEEN); RBC,URINE 0-3 /HPF (0-3); SQUAMOUS EPITHELIAL CELL,UR FEW /HPF (NONE SEEN)
[2018-07-07] MEDS ORDERED: MORPHINE SULFATE 4 MG/1 ML DISP.SYRIN IV PRN (23:30)
[2018-07-07] MEDS ORDERED: MAGNESIUM HYDROXIDE 30 ML LIQUID UDC PO PRN (23:30)
[2018-07-07] MEDS ORDERED: Z GUARD REMEDY PASTE 57 GM TUBE TOP PRN (23:30)
[2018-07-07] MEDS ORDERED: ACETAMINOPHEN 325 MG TABLET PO PRN (23:30)
--- NOTE | 2018-07-07 23:40 | NUR ---
Report given to Will solidworks mechanical designer.
[2018-07-07 23:58] VITALS: BP 90/47
--- NOTE | 2018-07-08 00:02 | NUR ---
ADMITTED PATIENT IN MED SURG FLOOR UNDER THE CARE OF DR. CORRALES, BELONGING LIST DONE.
--- NOTE | 2018-07-08 03:27 | NUR ---
PATIENT REQUESTING TO INCREASE MORPHINE TO 4MG FOR PAIN, NOTIFY DR. CARRILLO, WITH ORDER TO INCREASE TO 4MG.IV.
[2018-07-08] MEDS: MORPHINE SULFATE 4 MG/1 ML DISP.SYRIN IV PRN ×5 (03:38→23:17)
[2018-07-08 04:00] VITALS: BP 93/44
[2018-07-08] MEDS ORDERED: PIPERACILLIN/TAZOBACTAM/D5W 3.375 G in PREMIXED 1 EACH IV ONE (05:00)
[2018-07-08] MEDS ORDERED: PIPERACILLIN/TAZOBACTAM/D5W 50 ML IV ONE (05:22)
--- NOTE | 2018-07-08 06:32 | NUR ---
PATIENT SLEPT MOST PART OF THE NIGHT, CONT ON PAIN MANAGEMENT, GERSON CATH PATENT, FLUSHED NEEDED. ABDOMEN GT SITE STILL HAS REDNESS,BUT NO BLEEDING NOTED, CONT TO MONITOR.
[2018-07-08 07:00] LABS: CREATININE 0.7 mg/dL (0.6-1.3); MAGNESIUM 1.7 mg/dL (1.8-2.4); PHOSPHOROUS 4.4 mg/dL (2.5-4.9); POTASSIUM 3.4 mmol/L (3.5-5.1)
[2018-07-08 07:17] LABS: BASOPHILS % (AUTO) 0.7 % (0.0-2.0); EOSINOPHILS # (AUTO) 0.1 K/uL (0.0-0.7); EOSINOPHILS % (AUTO) 4.2 % (0.0-7.0); LYMPHOCYTES # (AUTO) 0.8 K/uL (20.0-40.0); LYMPHOCYTES % (AUTO) 22.9 % (20.5-51.5); MEAN CORPUSCULAR HEMOGLOBIN 31.6 uug (24.7-32.8); MEAN CORPUSCULAR HGB CONC 33 g/dL (32.3-35.6); MEAN CORPUSCULAR VOLUME 95.7 fL (75.5-95.3); MONOCYTES # (AUTO) 0.5 K/uL (2.0-10.0); MONOCYTES % (AUTO) 16.6 % (0.0-11.0); NEUTROPHILS # (AUTO) 1.8 K/uL (1.8-8.9); NEUTROPHILS % (AUTO) 55.6 % (38.5-71.5); PLATELET COUNT (AUTO) 184 K/uL (179-408); RED BLOOD CELL COUNT(AUTO) 2.99 MIL/uL (3.63-4.92); WHITE BLOOD COUNT (AUTO) 3.3 K/uL (3.8-11.8)
[2018-07-08 07:29] LABS: HEMOGLOBIN 9.4 g/dL (10.9-14.3)
[2018-07-08 07:30] LABS: HEMATOCRIT 28.6 % (31.2-41.9)
[2018-07-08] MEDS: ONDANSETRON 4 MG/2 ML VIAL IV PRN ×3 (08:13→21:01)
[2018-07-08] MEDS: VANCOMYCIN IV 1,500 MG in IV DEXTROSE 5% 500 ML IV SCH (08:25)
[2018-07-08 08:44] LABS: BAND % (MANUAL) 1 % (0-10); BASOPHILS % (MANUAL) 1 % (0-2); EOSINOPHILS % (MANUAL) 6 % (0-8); LYMPHOCYTES % (MANUAL) 19 % (20-40); MONOCYTES % (MANUAL) 14 % (2-10); NEUTROPHILS % (MANUAL) 59 % (42-75)
[2018-07-08 11:09] VITALS: BP 100/39
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
[2018-07-08 12:31] VITALS: BP 117/59
--- NOTE | 2018-07-08 12:32 | NUR ---
PT GIVEN MORPHINE FOR ABDOMINAL PAIN 04/13. PT BP 117/59. CONTINUE MONITOR PT.
[2018-07-08] MEDS: MAGNESIUM SULFATE/D5W 100 ML IV SCH ×2 (12:54→13:58)
[2018-07-08] MEDS: LORAZEPAM 2 MG/1 ML VIAL IV PRN (13:11)
[2018-07-08] MEDS ORDERED: ARIP30TA3 JT (13:42)
--- NOTE | 2018-07-08 13:54 | NUR ---
Clinical Pharmacy Note: Vancomycin Dosing per Pharmacy Subjective: Vancomycin IV to start on this 52 yo female patient for cellulitis Patient received vanco 1gm IVPB x1 in ED on 07/07 at 2100 Objective: BUN 14 Scr 0.7 WBC 3.3 Temperature 98.3 ht 157 cm wt 97 kg Assessment/Plan: Will start vanco 1500 mg IVPB q15h for predicted vanco trough level of 15 mcg/ml at steady state. 1st dose due today at 0900. Plan to order vanco trough level before 4th dose (not yet ordered). Will follow
[2018-07-08] MEDS: PIPERACILLIN/TAZOBACTAM/D5W 3.375 G in PREMIXED 1 EACH IV SCH ×2 (14:50→22:45)
[2018-07-08] MEDS ORDERED: POTASSIUM CHLORIDE 50 ML IV SCH (15:00)
[2018-07-08] MEDS ORDERED: ACETAMINOPHEN 650 MG SUPP.RECT RC PRN (15:15)
[2018-07-08 15:19] VITALS: BP 119/53
[2018-07-08] MEDS: POTASSIUM CHLORIDE 10 MEQ, LIDOCAINE-MPF 1% 1 ML in IV DEXTROSE 5% 100 ML IV SCH ×2 (16:33→17:26)
--- NOTE | 2018-07-08 18:39 | NUR ---
Pt observed resting in bed, calm, with no signs of respiratory distress. Pt's pain has been controlled with morphine. The medication has been effective. Pt voided two times and had one BM today. Pt is able to move and use a bed serra. the Pt's J tube stoma is red and pus is coming out of the Stoma. Continue to monitor pt.
--- NOTE | 2018-07-08 19:30 | NUR ---
Patient on bed awake no s/s of respiratory distress noted . no pain complained of pain discomfort noted . Call lights and other belongings within reach at all times . All needs met and attended .
[2018-07-08 20:00] VITALS: BP 90/41
[2018-07-08] MEDS ORDERED: HEPARIN SODIUM,PORCINE 5,000 UNITS/ML VIAL SQ SCH (21:00)
--- NOTE | 2018-07-08 21:10 | NUR ---
Patient complained of nausea . Zofran 4mg /2ml IV given prn . as ordered . Will continue monitor .
[2018-07-08] MEDS ORDERED: VITAL AF 1.2 1,000 ML LIQUID GT PRN (21:15)
--- NOTE | 2018-07-08 21:20 | NUR ---
PATIENT ON REGULAR DIET ORDERED, PATIENT REQUESTING FOOD. PATIENT WAS GIVEN A TURKEY SANDWICHES AND 2 CUP OF ORANGES JUICES, PROVIDED COOL WATER AT BED SIDE. PATIENT TOLERATE REGULAR DIET, DRUNK AND ATE THE SANDWICHES. PATIENT DRINKS FLUIDS ADEQUATELY, AND WILL CONT TO MONITOR.
[2018-07-08] MEDS: COD LIVER OIL/ZINC OXIDE OINT 113 GM TUBE TOP SCH (21:21)
[2018-07-08] MEDS ORDERED: HEPARIN SODIUM,PORCINE/PF 100 UNIT/ML, 5ML SYR XX PRN (21:45)
[2018-07-08] MEDS ORDERED: HYOSCYAMINE SULFATE 0.125 MG TABLET GT PRN (22:30)
[2018-07-08] MEDS ORDERED: PROMETHAZINE HCL 25 MG SUPP.RECT RC PRN (22:30)
[2018-07-08] MEDS ORDERED: hydrOXYzine HCL 25 MG TABLET GT PRN (22:30)
[2018-07-08] MEDS ORDERED: ACETAMINOPHEN ES 500 MG TABLET GT PRN (22:30)
[2018-07-08] MEDS ORDERED: NITROGLYCERIN 4.9 GM SPRAY TL PRN (22:30)
[2018-07-08] MEDS ORDERED: CLONAZEPAM 1 MG TABLET GT PRN (22:30)
[2018-07-08] MEDS ORDERED: Medication Not On Formulary EA (Hypromellose (Isopto Tears) 2 DROP) OP PRN (22:30)
[2018-07-08] MEDS ORDERED: BENZONATATE 100 MG CAPSULE GT PRN (22:30)
[2018-07-08] MEDS ORDERED: MIRALAX 17 GM POWD.PACK GT PRN (22:30)
--- NOTE | 2018-07-08 23:17 | NUR ---
Patient complained of generalized pain rate 8/10 . Morphine IV prn given as ordered . Will continue monitor and observe.
[2018-07-08] MEDS ORDERED: APIXABAN 5 MG TABLET GT ONE (23:45)
--- NOTE | 2018-07-08 23:45 | NUR ---
TOMAS PEREZ QUALITY ASSURANCE AUDITOR AT THE STATION AND NOTIFY QUALITY ASSURANCE AUDITOR THAT PATIENT REFUSED HEPARIN SUBCUTANEOUSLY, STATE "I DONT WANT TO HAVE SHOTS GIVEN ON MY ABDOMEN, PREFER TO HAVE ELOQUIS VIA GT. QUALITY ASSURANCE AUDITOR RECONCILE PATIENT MEDS.
--- NOTE | 2018-07-08 23:46 | NUR ---
NOTIFY CHRIS CORREA REQUEST TO HAVE ELEQUIZ 5MG VIA [employer] ONE TIME ORDER. CHRIS CORREA OKEYED THE ORDER.
--- NOTE | 2018-07-08 23:55 | NUR ---
ELOQUIS 5 MG VIA GT NOT GIVE, MEDICATION NOT AVAILABLE.
[2018-07-09] MEDS: LORAZEPAM 2 MG/1 ML VIAL IV PRN ×3 (00:08→21:07)
--- NOTE | 2018-07-09 00:08 | NUR ---
Patient complained of anxiety . IV Ativan prn given as ordered .Will continue to monitor and observe .
[2018-07-09] MEDS: VANCOMYCIN IV 1,500 MG in IV DEXTROSE 5% 500 ML IV SCH (00:14)
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
[2018-07-09 04:45] VITALS: BP 112/55
[2018-07-09] MEDS: MORPHINE SULFATE 4 MG/1 ML DISP.SYRIN IV PRN ×5 (04:53→21:05)
[2018-07-09] MEDS: METHOCARBAMOL 500 MG TABLET GT SCH ×3 (06:00→21:31)
--- NOTE | 2018-07-09 06:09 | NUR ---
PATIENT SLEPT MOST PART OF THE NIGHT, CONT ON PAIN MANAGEMENT. PATIENT REFUSED JT FEEDING, REFUSED TX OF THE ABDOMINAL WALL CELLULITIS, REFUSED HEPARIN FLUSHES ON GERSON CATH, WANTS 500UNITS, BUT ORDER IS 100 UNITS ONLY. REFUSED JT MEDICATIONS ALSO. EXPLAINED RISK AND BENEFIT. NOTIFIED DR. CORRALES PATIENT NON COMPLIANT WITH CARE AND REFUSAL OF MEDICATIONS.
[2018-07-09] MEDS: PIPERACILLIN/TAZOBACTAM/D5W 3.375 G in PREMIXED 1 EACH IV SCH ×3 (06:10→21:23)
[2018-07-09 06:23] LABS: CREATININE 0.7 mg/dL (0.6-1.3); MAGNESIUM 2.1 mg/dL (1.8-2.4); POTASSIUM 3.3 mmol/L (3.5-5.1)
[2018-07-09] MEDS ORDERED: NITROGLYCERIN 4.9 GM SPRAY TL PRN (07:15)
[2018-07-09] MEDS ORDERED: HYPROMELLOSE EACHEYE PRN (07:15)
[2018-07-09] MEDS: POTASSIUM CHLORIDE 20 MEQ POWDER PACKET GT SCH ×3 (08:18→17:00)
[2018-07-09] MEDS: CYANOCOBALAMIN 1,000 MCG TABLET GT SCH (08:43)
[2018-07-09] MEDS: MAGNESIUM OXIDE 400 MG TABLET GT SCH ×2 (08:43→16:56)
[2018-07-09] MEDS: GABAPENTIN 400 MG CAPSULE GT SCH ×2 (08:43→12:16)
[2018-07-09] MEDS: LOSARTAN POTASSIUM 50 MG TABLET GT SCH (08:44)
[2018-07-09] MEDS: BUMETANIDE 1 MG TABLET GT SCH ×2 (08:44→16:56)
[2018-07-09] MEDS: ARIPIPRAZOLE 10 MG TABLET GT SCH (08:44)
[2018-07-09] MEDS: APIXABAN 5 MG TABLET GT SCH ×2 (08:58→17:08)
[2018-07-09] MEDS: MYCOPHENOLATE MOFETIL 250 MG CAPSULE PO SCH ×2 (08:59→20:26)
[2018-07-09] MEDS ORDERED: Medication Not On Formulary EA (Mycophenolate Mofetil (Cellcept) 500 MG) GT SCH (09:00)
[2018-07-09] MEDS: BUDESONIDE 0.5 MG/2 ML NEBU IH SCH ×2 (09:00→17:00)
[2018-07-09] MEDS ORDERED: DOXYCYCLINE HYCLATE 100 MG GT SCH (09:00)
[2018-07-09] MEDS ORDERED: NITROGLYCERIN 0.4 MG/TAB BOTTLE SL PRN (09:45)
[2018-07-09 11:16] VITALS: BP 96/42
[2018-07-09] MEDS ORDERED: FENTANYL 100MCG/HR PATCH TD SCH (11:50)
[2018-07-09] MEDS: COD LIVER OIL/ZINC OXIDE OINT 113 GM TUBE TOP SCH ×2 (12:10→20:26)
[2018-07-09] MEDS: DOXYCYCLINE HYCLATE 100 MG TABLET GT SCH ×2 (12:11→20:23)
--- NOTE | 2018-07-09 12:34 | NUR ---
MIISED INHALATION TX. RT GOT BUSY IN ER INTUBATION. PT IS IN NO DISTRESS AT THIS TIME.
--- NOTE | 2018-07-09 14:36 | NUR ---
The patient ate. The tech explained to the nurse that ultrasound is not the modality of choice for GI tract. The nurse fiberline supervisor requested to come back at 6:00pm.
[2018-07-09 15:05] VITALS: BP 87/42
[2018-07-09 15:07] VITALS: BP_SYST 104; BP_SYST 87; BP_DIAS 42; BP_DIAS 60
[2018-07-09] MEDS: POTASSIUM CHLORIDE 50 ML IV SCH ×4 (15:14→19:58)
[2018-07-09] MEDS: ONDANSETRON 4 MG/2 ML VIAL IV PRN (17:05)
[2018-07-09] MEDS: NYSTATIN OINTMENT 15 GM TUBE TOP SCH ×2 (17:30→20:27)
--- NOTE | 2018-07-09 19:25 | NUR ---
RECEIVED PT AWAKE, ALERT , AND ORIENTEDX4. PT SHOWS NO SIGNS OF DISTRESS. IV INTACT.J-TUBE INTACT. CALL LIGHT WITHIN REACH. SAFETY AND COMFORT PROVIDED. WILL CONTINUE TO MONITOR.
[2018-07-09 20:00] VITALS: BP 86/47
[2018-07-09] MEDS ORDERED: GABAPENTIN 400 MG CAPSULE GT SCH (21:00)
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
[2018-07-10] MEDS: MORPHINE SULFATE 4 MG/1 ML DISP.SYRIN IV PRN ×3 (01:07→10:16)
[2018-07-10 03:52] VITALS: BP 97/56
[2018-07-10] MEDS: LORAZEPAM 2 MG/1 ML VIAL IV PRN (05:24)
[2018-07-10] MEDS: ONDANSETRON 4 MG/2 ML VIAL IV PRN (05:24)
[2018-07-10] MEDS: PIPERACILLIN/TAZOBACTAM/D5W 3.375 G in PREMIXED 1 EACH IV SCH ×2 (05:30→15:02)
[2018-07-10] MEDS: METHOCARBAMOL 500 MG TABLET GT SCH ×2 (05:32→13:00)
--- NOTE | 2018-07-10 06:17 | NUR ---
PT SLEPT INTERMITTENTLY. PT SHOWS NO SIGNS OF ACUTE DISTRESS. PRESCRIBED MEDICATION GIVEN AND PT TOLERATED IT WELL. IV INTACT. JTUBE INTACT. PT WANTS 20CC/HR ON HER TUBE FEEDING.SHE DOESN'T WANT IT TO BE INCREASE PER PT. PT WAS GIVEN MORPHINE 07/09/17 AT 2135H, 0107H,0507HFOR PAIN. PT TOLERATED IT WELL. VITAL SIGNS WITHIN NORMAL LIMIT. PT DEMANDING AND GETS IRRITATED EASILY. SAFETY AND COMFORT PROVIDED. WILL ENDORSE ACCORDINGLY TO INCOMING NURSE FOR CONTINUITY OF CARE.
[2018-07-10 06:39] LABS: CREATININE 0.9 mg/dL (0.6-1.3); MAGNESIUM 1.9 mg/dL (1.8-2.4)
[2018-07-10 06:45] LABS: BASOPHILS % (AUTO) 0.5 % (0.0-2.0); EOSINOPHILS # (AUTO) 0.1 K/uL (0.0-0.7); EOSINOPHILS % (AUTO) 3.2 % (0.0-7.0); HEMATOCRIT 29.9 % (31.2-41.9); HEMOGLOBIN 9.7 g/dL (10.9-14.3); LYMPHOCYTES % (AUTO) 37.9 % (20.5-51.5); MEAN CORPUSCULAR HEMOGLOBIN 30.8 uug (24.7-32.8); MEAN CORPUSCULAR HGB CONC 32 g/dL (32.3-35.6); MEAN CORPUSCULAR VOLUME 95.2 fL (75.5-95.3); MONOCYTES # (AUTO) 0.5 K/uL (2.0-10.0); MONOCYTES % (AUTO) 17.2 % (0.0-11.0); NEUTROPHILS # (AUTO) 1.1 K/uL (1.8-8.9); NEUTROPHILS % (AUTO) 41.2 % (38.5-71.5); PLATELET COUNT (AUTO) 147 K/uL (179-408); RED BLOOD CELL COUNT(AUTO) 3.14 MIL/uL (3.63-4.92); WHITE BLOOD COUNT (AUTO) 2.8 K/uL (3.8-11.8)
[2018-07-10] MEDS: POTASSIUM CHLORIDE 20 MEQ POWDER PACKET GT SCH ×2 (08:22→12:02)
[2018-07-10] MEDS: COD LIVER OIL/ZINC OXIDE OINT 113 GM TUBE TOP SCH (08:34)
[2018-07-10] MEDS: BUMETANIDE 1 MG TABLET GT SCH (08:45)
[2018-07-10] MEDS: LOSARTAN POTASSIUM 50 MG TABLET GT SCH (08:46)
[2018-07-10] MEDS: CYANOCOBALAMIN 1,000 MCG TABLET GT SCH (08:46)
[2018-07-10] MEDS: MYCOPHENOLATE MOFETIL 250 MG CAPSULE PO SCH (08:46)
[2018-07-10] MEDS: GABAPENTIN 400 MG CAPSULE GT SCH ×2 (08:46→12:46)
[2018-07-10] MEDS: MAGNESIUM OXIDE 400 MG TABLET GT SCH (08:46)
[2018-07-10] MEDS: DOXYCYCLINE HYCLATE 100 MG TABLET GT SCH (08:46)
[2018-07-10] MEDS: ARIPIPRAZOLE 10 MG TABLET GT SCH (08:46)
[2018-07-10] MEDS: APIXABAN 5 MG TABLET GT SCH (08:49)
[2018-07-10] MEDS: NYSTATIN OINTMENT 15 GM TUBE TOP SCH (08:49)
[2018-07-10] MEDS: BUDESONIDE 0.5 MG/2 ML NEBU IH SCH (09:00)
[2018-07-10 10:25] LABS: BASOPHILS % (MANUAL) 1 % (0-2); EOSINOPHILS % (MANUAL) 5 % (0-8); LYMPHOCYTES % (MANUAL) 34 % (20-40); MONOCYTES % (MANUAL) 13 % (2-10); NEUTROPHILS % (MANUAL) 46 % (42-75)
[2018-07-10 10:29] LABS: REACTIVE LYMPHOCYTES 1 % (0-0)
[2018-07-10] MEDS ORDERED: HEPARIN SODIUM,PORCINE/PF 100 UNIT/ML, 5ML SYR XX PRN (11:00)
[2018-07-10] MEDS: POTASSIUM CHLORIDE 50 ML IV SCH ×2 (11:25→13:18)
[2018-07-10 11:48] VITALS: BP 89/55
[2018-07-10] MEDS ORDERED: ASCORBIC ACID 500 MG TABLET GT SCH (12:00)
[2018-07-10 16:00] VITALS: BP 94/56
[2018-07-10] MEDS ORDERED: ASCORBATE CALCIUM GT SCH (17:00)
--- NOTE | 2018-07-10 17:50 | NUR ---
PT LEFT UNIT ON [facility] ACCOMPANIED BY LINUX SYSTEMS ANALYST. LEFT WITH ALL NOTED BELONGINGS AND PAPERWORK. V/S STABLE. IN NO ACUTE DISTRESS.
[2018-09-05] MEDS ORDERED: LACT10SO7 PO (17:23)
[2018-09-05] MEDS ORDERED: BUDE0.25 NEB (17:23)
[2018-09-05] MEDS ORDERED: APIX2.5T GT (17:23)
[2018-09-05] MEDS ORDERED: ACET-1467 GT (17:23)
[2018-09-05] MEDS ORDERED: CEFT1VIA15 IV (17:23)
[2018-09-05] MEDS ORDERED: HYDR-500 GT (17:23)
[2018-09-05] MEDS ORDERED: ATOR20TA GT (17:23)
[2018-09-05] MEDS ORDERED: ACET325T53 PO (17:23)
[2018-09-05] MEDS ORDERED: MENT71OI TOP (17:23)
[2018-09-05] MEDS ORDERED: CLON1TAB12 PO (17:23)
[2018-09-05] MEDS ORDERED: DOXY100T2 PO (17:37)
== END 2018-07-10 17:50 | DRG 252 ==
LOC: ER 18:51 → MED 23:39
PROVIDERS: ADMIT Family Medicine; ATTEND Hospitalist
DX: K94.22 Gastrostomy infection (principal); D68.59 Other primary thrombophilia; E46 Unspecified protein-calorie malnutrition; F11.20 Opioid dependence, uncomplicated; E66.01 Morbid (severe) obesity due to excess calories; I11.0 Hypertensive heart disease with heart failure; I50.9 Heart failure, unspecified; K31.84 Gastroparesis; M32.9 Systemic lupus erythematosus, unspecified; L03.311 Cellulitis of abdominal wall; B37.2 Candidiasis of skin and nail; T85.598A Other mechanical complication of other gastrointestinal prosthetic devices, implants and grafts, initial encounter; Y73.8 Miscellaneous gastroenterology and urology devices associated with adverse incidents, not elsewhere classified; Y92.129 Unspecified place in nursing home as the place of occurrence of the external cause; B96.20 Unspecified Escherichia coli [E. coli] as the cause of diseases classified elsewhere; D63.8 Anemia in other chronic diseases classified elsewhere; G89.4 Chronic pain syndrome; K94.23 Gastrostomy malfunction; Z16.12 Extended spectrum beta lactamase (ESBL) resistance; R47.02 Dysphasia; H04.123 Dry eye syndrome of bilateral lacrimal glands; Z68.39 Body mass index [BMI] 39.0-39.9, adult; E87.6 Hypokalemia; R13.10 Dysphagia, unspecified; F31.9 Bipolar disorder, unspecified; J98.11 Atelectasis; Z91.040 Latex allergy status; Z86.73 Personal history of transient ischemic attack (TIA), and cerebral infarction without residual deficits; Z88.5 Allergy status to narcotic agent; Z88.9 Allergy status to unspecified drugs, medicaments and biological substances; Z87.892 Personal history of anaphylaxis; Z86.61 Personal history of infections of the central nervous system; Z86.39 Personal history of other endocrine, nutritional and metabolic disease; Z90.49 Acquired absence of other specified parts of digestive tract; M51.36 Other intervertebral disc degeneration, lumbar region; Z96.642 Presence of left artificial hip joint; Z79.01 Long term (current) use of anticoagulants; Z86.718 Personal history of other venous thrombosis and embolism; Z86.711 Personal history of pulmonary embolism; Z91.5 Personal history of self-harm
CPT/HCPCS: 36415; 70030-TC; 71045; 76700; 83690; 83735; 84100; 85025; 85730; 87070; 87077; 93005; A4663; A9150; G0378; J1170; J1642; J1644; J2001; J2060; J2270; J2405; J2543; J3370; J3475; J3480; J3490; J3535; J7030; J7050; J7060; J7517

== ENCOUNTER 2018-08-10 23:55 | Inpatient (IN) | payer MEDICARE, OTHER ==
[~2018-08-10] VITALS: Ht 157.5 cm; Wt 103.4 kg
[~2018-08-10 23:55] MED LIST changes: -AMLO10TA4 PO; +BENZ-38 GT; +CYAN10009 GT; -DILT30TA2 PO; -DOCU250C14 PO; +DOXY100C GT; -DOXY100C2 PO; +FENT1PAT23 TD; -FERR325T28 PO; +HYOS0.1273 GT; -IBUP-1955 PO; -LOSA25TA3 PO; +LOSA50TA39 GT; -MONT10TA22 PO; -MULT1TAB73 PO; +NITR12SP7 TL; +OXYC10TA49 GT; +PROM25SU10 RC; -SUCR1ORA PO; -TAMS0.4C34 PO; +TIOT18CA3 IH; -TOPI25TA PO; -TRAM50TA PO; -VERA180T PO
--- NOTE | 2018-08-11 00:32 | NUR ---
Dr. González MILLER MD at bedside to evaluate pt.
--- NOTE | 2018-08-11 00:40 | NUR ---
Pt marium villa from [facility] d/t c/o pain around gjtube area which was manipulated couple days ago at [facility]. Pt A/Ox4 and is able to verbalize complaints. Pt c/o having to go cold turkey from narcotic medications and is requesting for KUB to be done for assurance of proper GJtube placement.
[2018-08-11] MEDS ORDERED: DIATR MEGLU/DIATRIZOATE SODIUM 30 ML SOLUTION PO ONE (00:45)
[2018-08-11] MEDS ORDERED: DIATR MEGLU/DIATRIZOATE SODIUM 30 ML SOLUTION ONE (00:53)
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
--- NOTE | 2018-08-11 01:08 | NUR ---
XRAY AT BEDSIDE
--- NOTE | 2018-08-11 01:48 | NUR ---
Pt back from CT
--- NOTE | 2018-08-11 02:35 | NUR ---
I&O cath placed per ER MD. urine sample collected & sent to lab.
--- NOTE | 2018-08-11 03:06 | NUR ---
called for med/surg bed per er md
--- NOTE | 2018-08-11 03:17 | NUR ---
nancy Richmond LCSW, for PET evaluation. ETA 1 hour.
--- NOTE | 2018-08-11 04:47 | NUR ---
Josef Richmond LCSW, at bedside for psych evaluation.
--- NOTE | 2018-08-11 05:23 | NUR ---
Pt. admitted to Med/Surg , under care of Ld Box NP. Diagnosis: Abdominal Pain. Belongs List completed. MRSA swab done. Report given to floor nurse.
[2018-08-11 05:45] VITALS: BP 121/65
--- NOTE | 2018-08-11 05:45 | NUR ---
admitted in the tele unit under the care of Kanchan Kumar, belong list done.
--- NOTE | 2018-08-11 07:20 | NUR ---
RECEIVED PATIENT IN STABLE CONDTION. NO COMPLAINTS OF N/V AND ABD PAIN AT THIS TIME. W/ JTUBE, NON FUNCTIONING. PATIENT HAS A GERSON CATH ON THE RIGHT UPPER CHEST. WILL CONTINUE TO MONITOR CLOSELY
--- NOTE | 2018-08-11 07:42 | NUR ---
patient awake no complain of pain at this time, cooperative with care at this time, endorsed to next shift.
[2018-08-11 10:01] LABS: BASOPHILS # (AUTO) 0.1 K/uL (0.0-8.0); BASOPHILS % (AUTO) 0.9 % (0.0-2.0); EOSINOPHILS # (AUTO) 0.1 K/uL (0.0-0.7); EOSINOPHILS % (AUTO) 1.9 % (0.0-7.0); HEMATOCRIT 30.8 % (31.2-41.9); HEMOGLOBIN 9.9 g/dL (10.9-14.3); LYMPHOCYTES # (AUTO) 1.3 K/uL (20.0-40.0); MEAN CORPUSCULAR HEMOGLOBIN 30.3 uug (24.7-32.8); MEAN CORPUSCULAR HGB CONC 32 g/dL (32.3-35.6); MONOCYTES # (AUTO) 0.7 K/uL (2.0-10.0); MONOCYTES % (AUTO) 12.5 % (0.0-11.0); NEUTROPHILS # (AUTO) 3.4 K/uL (1.8-8.9); NEUTROPHILS % (AUTO) 61.7 % (38.5-71.5); PLATELET COUNT (AUTO) 288 K/uL (179-408); RED BLOOD CELL COUNT(AUTO) 3.28 MIL/uL (3.63-4.92); WHITE BLOOD COUNT (AUTO) 5.4 K/uL (3.8-11.8)
[2018-08-11 10:02] LABS: *AMPHETAMINE, URINE NEGATIVE (NEGATIVE); *CANNABINOID, URINE NEGATIVE (NEGATIVE); *COCCAINE, URINE NEGATIVE (NEGATIVE); *OPIATE, URINE NEGATIVE (NEGATIVE); *PHENCYCLIDINE SCREEN,URINE NEGATIVE (NEGATIVE)
[2018-08-11 10:03] LABS: *BARBITURATE, URINE NEGATIVE (NEGATIVE)
[2018-08-11 10:05] LABS: ACETAMINOPHEN < 2.0 ug/mL (10-30); ALANINE AMINOTRANSFERASE 22 U/L (14-59); ALKALINE PHOSPHATASE 137 U/L (50-136); ASPARTATE AMINOTRANSFERASE 26 U/L (15-37); BILIRUBIN,DIRECT 0.1 mg/dL (0.0-0.2); BILIRUBIN,TOTAL 0.3 mg/dL (0.2-1.0); CARBON DIOXIDE 24 mmol/L (21-32); CHLORIDE 105 mmol/L (98-107); CREATININE 1.1 mg/dL (0.6-1.3); ETHANOL < 3 MG/DL (0-0); GLUCOSE 113 mg/dL (74-106); THYROID STIMULATING HORMONE 0.723 mIU/mL (0.358-3.740); UREA NITROGEN, BLOOD 31 mg/dL (7-18)
[2018-08-11] MEDS: ASPIRIN 81 MG TAB.CHEW PO SCH ×2 (11:00→12:06)
[2018-08-11] MEDS ORDERED: IV NS 1000 ML 1,000 ML IV PRN (11:00)
[2018-08-11] MEDS ORDERED: ACETAMINOPHEN 325 MG TABLET PO PRN (11:00)
[2018-08-11] MEDS ORDERED: HYDROCODONE/APAP 5-325MG TABLET PO PRN (11:00)
[2018-08-11] MEDS ORDERED: ONDANSETRON 4 MG/2 ML VIAL IV PRN ×2 (11:00→14:00)
[2018-08-11 11:10] VITALS: BP 119/64
--- NOTE | 2018-08-11 12:00 | NUR ---
Prateek cath needle inserted for IV access, by Betsy LEE, intact and patent. Patient refused IVF NS @75 CC/HR. will continue to monitor closely.
[2018-08-11] MEDS: PANTOPRAZOLE SODIUM 40 MG VIAL IV SCH (12:06)
[2018-08-11] MEDS ORDERED: PROMETHAZINE HCL 25 MG TABLET PO PRN (14:00)
[2018-08-11] MEDS ORDERED: DOXYCYCLINE HYCLATE 100 MG TABLET PO SCH (14:15)
[2018-08-11] MEDS ORDERED: hydrOXYzine HCL 25 MG TABLET PO PRN (14:15)
[2018-08-11] MEDS ORDERED: PROMETHAZINE HCL 25 MG SUPP.RECT RC PRN (14:15)
[2018-08-11] MEDS ORDERED: POLYVINYL ALCOHOL OPHT DROPS 15 ML BOTTLE EACHEYE PRN (14:15)
[2018-08-11] MEDS ORDERED: BENZONATATE 100 MG CAPSULE PO PRN (14:15)
[2018-08-11 15:15] VITALS: BP 135/68
[2018-08-11] MEDS: CLONAZEPAM 1 MG TABLET PO PRN (15:21)
[2018-08-11] MEDS: BUMETANIDE 1 MG TABLET PO SCH (15:21)
[2018-08-11] MEDS: ARIPIPRAZOLE 10 MG TABLET PO SCH (15:21)
[2018-08-11] MEDS: GABAPENTIN 400 MG CAPSULE PO SCH ×2 (15:21→22:28)
[2018-08-11] MEDS: METHOCARBAMOL 500 MG TABLET PO SCH ×2 (15:21→22:29)
[2018-08-11 16:14] LABS: BASOPHILS # (AUTO) 0.1 K/uL (0.0-8.0); EOSINOPHILS # (AUTO) 0.1 K/uL (0.0-0.7); EOSINOPHILS % (AUTO) 1.6 % (0.0-7.0); HEMATOCRIT 29.6 % (31.2-41.9); HEMOGLOBIN 9.8 g/dL (10.9-14.3); LYMPHOCYTES # (AUTO) 1.2 K/uL (20.0-40.0); LYMPHOCYTES % (AUTO) 20.7 % (20.5-51.5); MEAN CORPUSCULAR HEMOGLOBIN 31.2 uug (24.7-32.8); MEAN CORPUSCULAR HGB CONC 33 g/dL (32.3-35.6); MEAN CORPUSCULAR VOLUME 94.1 fL (75.5-95.3); MONOCYTES # (AUTO) 0.6 K/uL (2.0-10.0); MONOCYTES % (AUTO) 10.9 % (0.0-11.0); NEUTROPHILS # (AUTO) 3.9 K/uL (1.8-8.9); NEUTROPHILS % (AUTO) 65.8 % (38.5-71.5); PLATELET COUNT (AUTO) 285 K/uL (179-408); RED BLOOD CELL COUNT(AUTO) 3.15 MIL/uL (3.63-4.92)
[2018-08-11 16:38] LABS: CREATININE 0.9 mg/dL (0.6-1.3); MAGNESIUM 1.8 mg/dL (1.8-2.4); PHOSPHOROUS 3.2 mg/dL (2.5-4.9); POTASSIUM 3.7 mmol/L (3.5-5.1)
[2018-08-11] MEDS: POTASSIUM CHLORIDE 20 MEQ TAB.PRT.SR PO SCH (17:43)
[2018-08-11] MEDS: MYCOPHENOLATE MOFETIL 250 MG CAPSULE PO SCH (17:43)
[2018-08-11] MEDS: CHOLECALCIFEROL 1,000 UNIT TABLET PO SCH (17:44)
[2018-08-11] MEDS: MAGNESIUM OXIDE 400 MG TABLET PO SCH (17:44)
[2018-08-11] MEDS: APIXABAN 5 MG TABLET PO SCH (17:45)
--- NOTE | 2018-08-11 18:24 | NUR ---
PATIENT IN STABLE CONDITION THROUGHOUT SHIFT. GERSON CATH IN PLACE AND PATENT. ALL NEEDS ATTENDED AND ANTICIPATED. KEPT COMFORTABLE THROUOUT SHIFT. WILL ENDORSE TO ALEXANDRA LEE. Addendum: 08/11/18 at 1832 by SANDRA BONILLA RN PATIENT CONTINUES TO REFUSE IVF.
[2018-08-11 19:33] VITALS: BP 130/80
--- NOTE | 2018-08-11 19:45 | NUR ---
Received patient awake in bed, not in any form of distress. Noted with portacatheter already accessed with Hubber needle. With J-Tube, with dressing intact. Patient continent and urinates in diaper. Noted per morning shift nurse urine specimen and stool specimen sent to lab and we will follow up results. Bed in low position, side rails up x 2, call light within reach. Noise and lights subdued. Will continue to monitor.
[2018-08-11] MEDS: BUDESONIDE 0.5 MG/2 ML NEBU IH SCH (20:05)
[2018-08-11] MEDS ORDERED: PANTOPRAZOLE SODIUM 40 MG TABLET.DR PO SCH (21:00)
[2018-08-11] MEDS: ACETAMINOPHEN ES 500 MG TABLET PO PRN (21:05)
--- NOTE | 2018-08-11 21:30 | NUR ---
Patient complaining of headache, prn pain medication given. Changed patient's gown and diaper and helped her get comfortable in bed. Provided snacks as requested noted patient is on regular diet.
[2018-08-11] MEDS: ASCORBIC ACID 500 MG TABLET PO SCH (22:27)
[2018-08-11] MEDS: MELATONIN 3 MG TABLET PO SCH (22:28)
[2018-08-11] MEDS: PIPERACILLIN/TAZOBACTAM/D5W 3.375 G in PREMIXED 1 EACH IV SCH (22:40)
--- NOTE | 2018-08-11 23:00 | NUR ---
Spoke with laboratory staff and verified that no urine and stool specimen were sent this morning shift.
--- NOTE | 2018-08-11 23:30 | NUR ---
Noted patient has been declining to start IV Fluids on her, notified Anant Box who said it was okay.
--- NOTE | 2018-08-12 02:30 | NUR ---
Urine and stool sample collected and sent personally to laboratory.
[2018-08-12 04:03] VITALS: BP 98/59
[2018-08-12 05:05] LABS: *BILIRUBIN,URIN NEGATIVE (NEGATIVE); *BLOOD, URINE NEGATIVE (NEGATIVE); *CLARITY,URINE HAZY (CLEAR); *COLOR,URINE YELLOW (YELLOW); *KETONES,URINE TRACE (NEGATIVE); *UROBILINOGEN,URINE 0.2 E.U./dl (NORMAL); LEUKOCYTE ESTERASE ,URINE 1+ (NEGATIVE); NITRITE, URINE NEGATIVE (NEGATIVE); UGLUCOSE NEGATIVE (NEGATIVE)
[2018-08-12 05:08] LABS: BACTERIA,URINE FEW /HPF (NONE SEEN); RBC,URINE 0-3 /HPF (0-3); SQUAMOUS EPITHELIAL CELL,UR FEW /HPF (NONE SEEN)
--- NOTE | 2018-08-12 05:26 | NUR ---
Patient slept intermittently throughout the night. Still with portacatheter already accessed with Hubber needle. With J-Tube, with dressing intact, cleansed stoma and change of dressing done. Noted was able to send urine and stool specimen to lab. No other complaints made by patient and no other untoward events noted. Ensured safety and comfort.
[2018-08-12] MEDS: BUMETANIDE 1 MG TABLET PO SCH ×2 (06:08→13:55)
[2018-08-12] MEDS: ACETAMINOPHEN ES 500 MG TABLET PO PRN ×3 (06:08→21:39)
[2018-08-12] MEDS: GABAPENTIN 400 MG CAPSULE PO SCH ×3 (06:08→21:37)
[2018-08-12] MEDS: METHOCARBAMOL 500 MG TABLET PO SCH ×3 (06:09→21:39)
[2018-08-12] MEDS: PIPERACILLIN/TAZOBACTAM/D5W 3.375 G in PREMIXED 1 EACH IV SCH ×3 (06:10→21:48)
[2018-08-12] MEDS: PANTOPRAZOLE SODIUM 40 MG VIAL IV SCH (06:27)
[2018-08-12] MEDS: BUDESONIDE 0.5 MG/2 ML NEBU IH SCH ×2 (07:46→19:20)
[2018-08-12 08:01] LABS: *OCCULT BLOOD STOOL POSITIVE (NEGATIVE)
[2018-08-12] MEDS: ASPIRIN 81 MG TAB.CHEW PO SCH (09:38)
[2018-08-12] MEDS: ARIPIPRAZOLE 10 MG TABLET PO SCH (09:38)
[2018-08-12] MEDS: CHOLECALCIFEROL 1,000 UNIT TABLET PO SCH ×2 (09:39→16:49)
[2018-08-12] MEDS: MAGNESIUM OXIDE 400 MG TABLET PO SCH ×2 (09:39→16:50)
[2018-08-12] MEDS: CYANOCOBALAMIN 1,000 MCG TABLET PO SCH (09:39)
[2018-08-12] MEDS: ASCORBIC ACID 500 MG TABLET PO SCH ×2 (09:39→21:38)
[2018-08-12] MEDS: POTASSIUM CHLORIDE 20 MEQ TAB.PRT.SR PO SCH ×2 (09:39→16:50)
[2018-08-12] MEDS: MYCOPHENOLATE MOFETIL 250 MG CAPSULE PO SCH ×2 (09:41→16:50)
[2018-08-12] MEDS: LOSARTAN POTASSIUM 50 MG TABLET PO SCH (09:54)
[2018-08-12] MEDS: APIXABAN 5 MG TABLET PO SCH ×2 (09:55→16:58)
[2018-08-12] MEDS: NITROGLYCERIN 0.1 MG/HR (=4 CM2) PATCH TD SCH (10:55)
[2018-08-12] MEDS: CLONAZEPAM 1 MG TABLET PO PRN ×2 (10:57→21:42)
[2018-08-12 11:32] VITALS: BP 118/74
[2018-08-12 15:26] VITALS: BP 105/43
--- NOTE | 2018-08-12 17:40 | NUR ---
SBAR report received this morning. Pt assessed AAOx4. GTube skin care provided, leaned and new dressing applied. Portacatheter access used with Hubber needle for antibiotic administration. Pt compliant with routine medication administration. Decreased BP noted, Pt states normal for her but feels fatigued. Bed in locked and lowest position. All comfort and safety needs met at this time. Call light and personal belongings placed within reach. PT seen by HELP DESK SUPPORT SPECIALIST, plan of care regarding GTube removal and beginning calorie count tomorrow starting with breakfast discussed. Will continue to monitor.
[2018-08-12] MEDS: NITROGLYCERIN 0.4 MG/TAB BOTTLE SL PRN ×2 (18:11→19:56)
--- NOTE | 2018-08-12 18:11 | NUR ---
Sudden onset of chest pain reported. Pain described as 10/10 tight to left lower chest, radiating to left should and back. Described SOB and feeling sweaty. VS taken to be 91/57, 102 95% RA. 2L NC applied. Nitro SL tab x1 given, VS 79/41, 105. MD notified or change in status. New orders received to place Pt on tele monitor, administer aspirin 325mg once, ECG, and Troponin labs STAT. New orders implemented. Pt reports slight lessening in pain following Aspirin administration of 8-03/14. Latest VS reading 98/60, 100 hr, 98% on 2L NC. Will continue to monitor Pt. Call light in place.
[2018-08-12] MEDS ORDERED: ASPIRIN 325 MG TABLET PO ONE (18:45)
--- NOTE | 2018-08-12 19:50 | NUR ---
Received patient awake in bed. Noted with portacatheter already accessed with Hubber needle. With J-Tube, with dressing intact. Patient continent and urinates in bedpan. Noted complained of chest pain during the morning shift, STAT Troponin and EKG was done and per day shift nurse Dr. Zuniga already notified of results. Noted patient was given Aspirin and Nitroglycerin SL. Patient has oxygen support at 2lpm via nasal cannula. Patient currently complaining of chest pain at left chest that radiates to left shoulder to back. Noted blood pressure at 117/67, will give another dose of Nitrogylcerin SL. Noted patient on tele monitor and currently on normal sinus rhythym. Will continue to monitor.
--- NOTE | 2018-08-12 20:16 | NUR ---
Latest VS 91/86, 100 hr, 96% 2L NC. Pt continues to report same symptoms. Will continue to monitor Pt closely and endorse event to oncoming overnight caregiver.
--- NOTE | 2018-08-12 21:15 | NUR ---
Patient still complaining of chest pain, however latest blood pressure was 95/48 will hold nitroglycerin SL for now since patient had hypotensive episode on day shift after nitroglycerin dose. Offered tylenol extra strength to patient which she agreed to take. Patient also took all of her due night medications without complaints. Patient was anxious and was verbalizing all her disappointments from today's "care." Will give patient anxiety PRN medications. Bed in low position, locked, side rails up x 2, call light within reach. Patient still normal sinus rhythm on tele monitor. Will continue to monitor.
[2018-08-12] MEDS: MELATONIN 3 MG TABLET PO SCH (21:39)
--- NOTE | 2018-08-12 23:21 | NUR ---
Noted patient no longer complained for recurrence of chest pain, still Normal sinus rhythm on tele monitor. Patient currently asleep. Will continue to monitor.
[2018-08-13] VITALS (7 sets, daily range): BP systolic 90–113; BP diastolic 46–60
[2018-08-13] MEDS: METHOCARBAMOL 500 MG TABLET PO SCH ×3 (05:40→22:00)
[2018-08-13] MEDS: ACETAMINOPHEN ES 500 MG TABLET PO PRN ×2 (05:40→13:15)
[2018-08-13] MEDS: GABAPENTIN 400 MG CAPSULE PO SCH ×3 (05:40→21:00)
[2018-08-13] MEDS: BUMETANIDE 1 MG TABLET PO SCH ×2 (05:40→13:06)
[2018-08-13] MEDS: PIPERACILLIN/TAZOBACTAM/D5W 3.375 G in PREMIXED 1 EACH IV SCH ×3 (05:43→22:04)
--- NOTE | 2018-08-13 06:06 | NUR ---
Patient slept intermittently throught the night. No recurrence of chest pain noted. Patient on normal sinus rhythm on tele monitor and had stable vital signs throughout the shift. Patient still with oxygen support via nasal cannula saturating 96-99%. Still with portacatheter at right upper chest intact. Ensured safety and comfort. Attended all needs. Noted patient consumed 1 whole turkey sandwich this shift and 1 cup of beef broth with crackers.
[2018-08-13] MEDS ORDERED: PANTOPRAZOLE SODIUM 40 MG TABLET.DR PO SCH (07:00)
[2018-08-13 07:04] LABS: BASOPHILS # (AUTO) 0.1 K/uL (0.0-8.0); BASOPHILS % (AUTO) 1.4 % (0.0-2.0); EOSINOPHILS # (AUTO) 0.1 K/uL (0.0-0.7); EOSINOPHILS % (AUTO) 2.4 % (0.0-7.0); HEMATOCRIT 29.3 % (31.2-41.9); HEMOGLOBIN 9.6 g/dL (10.9-14.3); LYMPHOCYTES # (AUTO) 1.1 K/uL (20.0-40.0); LYMPHOCYTES % (AUTO) 25.8 % (20.5-51.5); MEAN CORPUSCULAR HEMOGLOBIN 30.7 uug (24.7-32.8); MEAN CORPUSCULAR HGB CONC 33 g/dL (32.3-35.6); MEAN CORPUSCULAR VOLUME 93.9 fL (75.5-95.3); MONOCYTES # (AUTO) 0.6 K/uL (2.0-10.0); MONOCYTES % (AUTO) 13.5 % (0.0-11.0); NEUTROPHILS # (AUTO) 2.4 K/uL (1.8-8.9); NEUTROPHILS % (AUTO) 56.9 % (38.5-71.5); PLATELET COUNT (AUTO) 275 K/uL (179-408); RED BLOOD CELL COUNT(AUTO) 3.12 MIL/uL (3.63-4.92); WHITE BLOOD COUNT (AUTO) 4.3 K/uL (3.8-11.8)
[2018-08-13 07:16] LABS: BILIRUBIN,TOTAL 0.3 mg/dL (0.2-1.0); CREATININE 1.1 mg/dL (0.6-1.3); MAGNESIUM 1.7 mg/dL (1.8-2.4); PHOSPHOROUS 4.1 mg/dL (2.5-4.9); POTASSIUM 3.7 mmol/L (3.5-5.1); TOTAL PROTEIN, SERUM 6.5 g/dL (6.4-8.2)
--- NOTE | 2018-08-13 07:25 | NUR ---
RECEIVED PATIENT IN STABLE CONDITION. ON TELE SR NO COMPLAINTS OF N/V CHEST PAIN, AND ABD PAIN AT THIS TIME. W/ JTUBE, NON FUNCTIONING. PATIENT HAS A GERSON CATH ON THE RIGHT UPPER CHEST. INTACT AND PATENT, WILL CONTINUE TO MONITOR CLOSELY
[2018-08-13] MEDS: BUDESONIDE 0.5 MG/2 ML NEBU IH SCH ×2 (07:52→19:21)
[2018-08-13] MEDS: PANTOPRAZOLE SODIUM 40 MG VIAL IV SCH (08:46)
[2018-08-13] MEDS: ASCORBIC ACID 500 MG TABLET PO SCH ×2 (08:47→21:00)
[2018-08-13] MEDS: MAGNESIUM OXIDE 400 MG TABLET PO SCH ×2 (08:47→17:45)
[2018-08-13] MEDS: POTASSIUM CHLORIDE 20 MEQ TAB.PRT.SR PO SCH ×2 (08:47→17:45)
[2018-08-13] MEDS: MYCOPHENOLATE MOFETIL 250 MG CAPSULE PO SCH ×2 (08:47→18:20)
[2018-08-13] MEDS: ARIPIPRAZOLE 10 MG TABLET PO SCH (08:48)
[2018-08-13] MEDS: CYANOCOBALAMIN 1,000 MCG TABLET PO SCH (08:48)
[2018-08-13] MEDS: CHOLECALCIFEROL 1,000 UNIT TABLET PO SCH ×2 (08:48→17:45)
[2018-08-13] MEDS: ASPIRIN 81 MG TAB.CHEW PO SCH (08:50)
[2018-08-13] MEDS: APIXABAN 5 MG TABLET PO SCH ×2 (08:52→17:00)
[2018-08-13] MEDS: NITROGLYCERIN 0.1 MG/HR (=4 CM2) PATCH TD SCH (10:12)
[2018-08-13] MEDS: MAGNESIUM SULFATE/D5W 100 ML IV SCH ×2 (10:12→10:55)
[2018-08-13] MEDS: LOSARTAN POTASSIUM 50 MG TABLET PO SCH (10:15)
--- NOTE | 2018-08-13 11:23 | NUR ---
Calorie ct 08/13 11:30 290 kcal, 13 g pro Pt reports she has a good appetite Addendum: 08/13/18 at [address] Amended: Links added.
[2018-08-13] MEDS: NITROGLYCERIN 0.4 MG/TAB BOTTLE SL PRN ×2 (13:11→13:30)
--- NOTE | 2018-08-13 15:00 | NUR ---
CALLED AND PAGED DR ROBERTSON, CALLED BACK AFTER 20 MINS, INFORMED HIM OF PATIENT'S CONCERN WITH EKG RESULTS AND WAS REQUESTING D DIMER TEST AND CARDIO CONSULT. RECEIVED ORDERS NOTED AND CARRIED OUT.
[2018-08-13] MEDS ORDERED: IOHEXOL 350 100 ML INFUS..BTL ONE (15:20)
[2018-08-13] MEDS ORDERED: IV NORMAL SALINE 250 ML IV ONE (15:21)
[2018-08-13] MEDS ORDERED: SWABABLE VALVE TRANSFER SET EA MC ONE (15:21)
--- NOTE | 2018-08-13 15:45 | NUR ---
SEEN BY DR. FERNANDEZ, WITH ORDERS FOR EKG AND CTA ANGIO, NOTED AND CARRIED OUT. KEPT PATIENT ON NPO FOR PROCEDURE.
--- NOTE | 2018-08-13 16:20 | NUR ---
INSERTED IV ACCESS ON RIGHT FOREARM #20 INTACT AND PATENT FOR CTA ANGIO. CONSENT SIGNED.
--- NOTE | 2018-08-13 18:43 | NUR ---
PATIENT IN NO ACUTE DISTRESS. ON TELE SR. NOTES CHEST PAIN IS BETTER THIS TIME. PPORTACATH IN RIGHT UPPER CHEST INTACT AND PATENT, STILL REUSES IVF. ALL NEEDS ATTENDED AND ANTICIPATED. WILL ENDORSE ACCORDINGLY
--- NOTE | 2018-08-13 19:30 | NUR ---
Received patient asleep in bed, not in any form of distress. No chest pain noted. with oxygen support at 2lpm via nasal cannula. Still with portacatheter at right upper chest, intact and patent. Still with G-tube in place, noted patient had good appetite earlier today, will continue calorie count. Noted patient was seen by portfolio accountant and psychiatrist today. Will continue to monitor.
[2018-08-13] MEDS: MELATONIN 3 MG TABLET PO SCH (21:00)
--- NOTE | 2018-08-13 21:44 | NUR ---
Patient awake however has incomprehensible speech at the moment, patient follows command but appears really weak. Charge nurse notified of these changes who in turn called nursing supervisor cleaning and annealing for further assessment of the patient. Noted vital signs are within normal range. Patient on tele monitor, noted on normal sinus rhythm with heart rate 80-84bpm. Will closely observe patient.
--- NOTE | 2018-08-13 22:38 | NUR ---
Patient continues to complain via body language that she cannot speak. Another nurse, JESUS Berry did a neuro reassessment. Patient has no facial droop and patient has history of left sided weakness already. She follows commands and no drifting is noted. Patient is screaming, crying and being very disruptive. Patient declined to take any oral medications and exhibiting aggression to staff. Above events reported to health and safety consultant doctor.
--- NOTE | 2018-08-13 22:49 | NUR ---
Spoke with Dr. Zuniga about the patient and patient being unable to speal, MD is aware of the patient's demeanor. Per MD, we can give patient Ativan 1mg IV once to help her calm down.
[2018-08-13] MEDS ORDERED: LORAZEPAM 2 MG/1 ML VIAL IV PRN (23:00)
--- NOTE | 2018-08-13 23:59 | NUR ---
Patient currently asleep after ativan IV dose. Will continue to monitor.
[2018-08-14] MEDS: ACETAMINOPHEN ES 500 MG TABLET PO PRN ×3 (03:14→21:38)
[2018-08-14] MEDS: PIPERACILLIN/TAZOBACTAM/D5W 3.375 G in PREMIXED 1 EACH IV SCH (06:14)
[2018-08-14] MEDS: GABAPENTIN 400 MG CAPSULE PO SCH ×3 (06:14→21:29)
[2018-08-14] MEDS: METHOCARBAMOL 500 MG TABLET PO SCH ×3 (06:14→21:29)
[2018-08-14] MEDS: BUMETANIDE 1 MG TABLET PO SCH ×2 (06:14→13:40)
[2018-08-14] MEDS: CLONAZEPAM 1 MG TABLET PO PRN ×2 (06:20→13:51)
--- NOTE | 2018-08-14 07:38 | NUR ---
Patient more cooperative this morning and took all of her 6am medications. Complained of headache earlier, tylenol ES prn was given. Noted on normal sinus rhythm on tele monitor. This morning patient still relaying thru actions that she cannot speak still, however heard patient say "hey" and " nurse." All events endorsed to incoming morning nurse in detail. Attended all needs and kept comfortable. Dr. Zuniga aware of the event of patient being unable to speak.
[2018-08-14] MEDS: BUDESONIDE 0.5 MG/2 ML NEBU IH SCH ×2 (07:48→19:50)
[2018-08-14] MEDS: PANTOPRAZOLE SODIUM 40 MG VIAL IV SCH (09:00)
[2018-08-14] MEDS: ASPIRIN 81 MG TAB.CHEW PO SCH (09:00)
[2018-08-14] MEDS: APIXABAN 5 MG TABLET PO SCH ×2 (09:00→17:17)
[2018-08-14] MEDS: ARIPIPRAZOLE 10 MG TABLET PO SCH (09:12)
[2018-08-14] MEDS: ASCORBIC ACID 500 MG TABLET PO SCH ×2 (09:13→21:30)
[2018-08-14] MEDS: CHOLECALCIFEROL 1,000 UNIT TABLET PO SCH ×2 (09:13→17:16)
[2018-08-14] MEDS: NITROGLYCERIN 0.1 MG/HR (=4 CM2) PATCH TD SCH (09:13)
[2018-08-14] MEDS: POTASSIUM CHLORIDE 20 MEQ TAB.PRT.SR PO SCH ×2 (09:14→17:18)
[2018-08-14] MEDS: MYCOPHENOLATE MOFETIL 250 MG CAPSULE PO SCH ×2 (09:14→17:30)
[2018-08-14] MEDS: LOSARTAN POTASSIUM 50 MG TABLET PO SCH (09:15)
[2018-08-14] MEDS: MAGNESIUM OXIDE 400 MG TABLET PO SCH ×2 (09:15→17:18)
[2018-08-14] MEDS: CYANOCOBALAMIN 1,000 MCG TABLET PO SCH (09:17)
[2018-08-14 11:55] VITALS: BP 105/54
--- NOTE | 2018-08-14 13:22 | NUR ---
Calorie Count Wednesday TOTAL: 864 kcal 49 g protein Wednesday BREAKFAST AND LUNCH ONLY: 640 kcal 39 g protein Addendum: 08/14/18 at [address] Amended: Links added.
[2018-08-14] MEDS: MEROPENEM 1 G in IV NORMAL SALINE 100 ML IV SCH ×2 (13:39→21:31)
[2018-08-14] MEDS ORDERED: GOLYTELY 4000 ML BOTTLE PO ONE (14:00)
[2018-08-14] MEDS ORDERED: MAGNESIUM CITRATE 296 ML BOTTLE PO ONE (14:00)
[2018-08-14 15:35] VITALS: BP 92/52
--- NOTE | 2018-08-14 18:48 | NUR ---
Pt. refusing to have EGD/colonoscopy performed and demanding to be discharged tonight. Dr. Zuniga notified. hourly manager notified per MD order. Will continue to monitor.
[2018-08-14 20:19] VITALS: BP 100/58
[2018-08-14] MEDS ORDERED: MEROPENEM 500 MG in IV NORMAL SALINE 50 ML IV SCH (21:00)
[2018-08-14] MEDS: MELATONIN 3 MG TABLET PO SCH (21:30)
--- NOTE | 2018-08-14 21:53 | NUR ---
Patient transferring to [facility] ([phone]). Report given to receiving nurse JESUS Edwards. Patient in bed resting. Vital signs WNL. No distress verbalized by patient when asked.
[2018-08-15] MEDS ORDERED: FLEET ENEMA 133 ML BOTTLE RC PRN (08:00)
[2018-09-05] MEDS ORDERED: ATOR20TA GT (17:23)
[2018-09-05] MEDS ORDERED: ACET-1467 GT (17:23)
[2018-09-05] MEDS ORDERED: ACET325T53 PO (17:23)
[2018-09-05] MEDS ORDERED: HYDR-500 GT (17:23)
[2018-09-05] MEDS ORDERED: BUDE0.25 NEB (17:23)
[2018-09-05] MEDS ORDERED: CLON1TAB12 PO (17:23)
[2018-09-05] MEDS ORDERED: LACT10SO7 PO (17:23)
[2018-09-05] MEDS ORDERED: CEFT1VIA15 IV (17:23)
[2018-09-05] MEDS ORDERED: MENT71OI TOP (17:23)
[2018-09-05] MEDS ORDERED: APIX2.5T GT (17:23)
[2018-09-05] MEDS ORDERED: DOXY100T2 PO (17:37)
== END 2018-08-14 22:50 | DRG 254 ==
LOC: ER 23:59 → MED 08-11 05:29 → TELE 08-12 20:00
PROVIDERS: ADMIT Nurse Practitioner Acute Care; ATTEND Internal Medicine
DX: Z43.1 Encounter for attention to gastrostomy (principal); N17.0 Acute kidney failure with tubular necrosis; G43.409 Hemiplegic migraine, not intractable, without status migrainosus; D68.62 Lupus anticoagulant syndrome; E66.01 Morbid (severe) obesity due to excess calories; G62.9 Polyneuropathy, unspecified; I11.0 Hypertensive heart disease with heart failure; I50.32 Chronic diastolic (congestive) heart failure; G81.94 Hemiplegia, unspecified affecting left nondominant side; K31.84 Gastroparesis; Z68.41 Body mass index [BMI] 40.0-44.9, adult; Z79.899 Other long term (current) drug therapy; Z96.642 Presence of left artificial hip joint; Z53.20 Procedure and treatment not carried out because of patient's decision for unspecified reasons; Z71.3 Dietary counseling and surveillance; Z90.49 Acquired absence of other specified parts of digestive tract; Z86.718 Personal history of other venous thrombosis and embolism; Z86.711 Personal history of pulmonary embolism; Z86.73 Personal history of transient ischemic attack (TIA), and cerebral infarction without residual deficits; Z79.02 Long term (current) use of antithrombotics/antiplatelets; Z82.49 Family history of ischemic heart disease and other diseases of the circulatory system; Z84.89 Family history of other specified conditions; F41.9 Anxiety disorder, unspecified; D63.8 Anemia in other chronic diseases classified elsewhere; E03.9 Hypothyroidism, unspecified; G89.4 Chronic pain syndrome; F31.9 Bipolar disorder, unspecified; Z91.5 Personal history of self-harm; Z79.51 Long term (current) use of inhaled steroids; Z79.01 Long term (current) use of anticoagulants
CPT/HCPCS: 36415; 70030-TC; 70450; 71275; 74018; 80307; 83550; 83735; 84100; 84443; 85025; 87077; 87086; 93005; 93307; 94640; 94664; 97530; 97535; A4663; A9150; C1758; C9113; G0378; G0480; G0480-TC; J2060; J2185; J2405; J2543; J3475; J3490; J7030; J7040; J7050; J7517; Q0169; Q9963; Q9967

== ENCOUNTER 2018-08-29 04:23 | Emergency (ER) | payer MEDICARE, OTHER ==
[~2018-08-29] VITALS: Ht 157.5 cm; Wt 99.3 kg
[~2018-08-29 04:23] MED LIST changes: -FENT1PAT23 TD; -HYOS0.1273 GT; -NITR12SP7 TL; -OXYC10TA49 GT; -POLY17PO4 GT
--- NOTE | 2018-08-29 04:45 | NUR ---
Pt came to ER via wheelchair bib family member. Pt states she was inpatient at [facility] for small bowel obstruction however left AMA due to being unsatisfied w the care. Pt c/o abd pain radiating to back x 1 day, n/v, & j-tube pain site. no s/s infection. Pt has J-tube, and port-a-cath placed on rt side chest. AAOX3. Denies cp/sob. Will ctm
--- NOTE | 2018-08-29 04:50 | NUR ---
Dr. Danny MILLER MD at bedside to evaluate pt.
[2018-08-29] MEDS ORDERED: IV NORMAL SALINE 500 ML BAG IV ONE (05:00)
[2018-08-29 05:10] LABS: BASOPHILS % (AUTO) 0.7 % (0.0-2.0); EOSINOPHILS # (AUTO) 0.2 K/uL (0.0-0.7); EOSINOPHILS % (AUTO) 3.3 % (0.0-7.0); HEMATOCRIT 30.5 % (31.2-41.9); HEMOGLOBIN 10.1 g/dL (10.9-14.3); LYMPHOCYTES # (AUTO) 0.7 K/uL (20.0-40.0); MEAN CORPUSCULAR HEMOGLOBIN 31.4 uug (24.7-32.8); MEAN CORPUSCULAR HGB CONC 33 g/dL (32.3-35.6); MONOCYTES # (AUTO) 0.5 K/uL (2.0-10.0); MONOCYTES % (AUTO) 10.5 % (0.0-11.0); NEUTROPHILS # (AUTO) 3.7 K/uL (1.8-8.9); NEUTROPHILS % (AUTO) 72.5 % (38.5-71.5); PLATELET COUNT (AUTO) 216 K/uL (179-408); RED BLOOD CELL COUNT(AUTO) 3.21 MIL/uL (3.63-4.92); WHITE BLOOD COUNT (AUTO) 5.1 K/uL (3.8-11.8)
--- NOTE | 2018-08-29 05:18 | NUR ---
Patient went downstairs for CT. NAD VSS
[2018-08-29 05:25] LABS: CREATININE 0.6 mg/dL (0.6-1.3); POTASSIUM 3.3 mmol/L (3.5-5.1)
[2018-08-29 05:31] LABS: BILIRUBIN,DIRECT 0.1 mg/dL (0.0-0.2); BILIRUBIN,TOTAL 0.4 mg/dL (0.2-1.0); TOTAL PROTEIN, SERUM 6.4 g/dL (6.4-8.2)
--- NOTE | 2018-08-29 05:32 | NUR ---
Patient back from CT, no acute distress noted.
[2018-08-29] MEDS ORDERED: ONDANSETRON IV *ER 4 MG/2 ML VIAL IV ONE (06:00)
[2018-08-29] MEDS ORDERED: HYDROMORPHONE 1 MG/1 ML DISP.SYRIN IV ONE (06:00)
[2018-08-29] MEDS ORDERED: ONDANSETRON 4 MG/2 ML VIAL ONE (06:04)
[2018-08-29] MEDS ORDERED: HYDROMORPHONE 1 MG/1 ML DISP.SYRIN ONE (06:04)
[2018-08-29] MEDS ORDERED: BUME2TAB3 GT (06:05)
[2018-08-29] MEDS ORDERED: PROM25TA15 GT (06:05)
[2018-08-29] MEDS ORDERED: ASPI-605 GT (06:05)
[2018-08-29] MEDS ORDERED: MAGN400C GT (06:05)
[2018-08-29] MEDS ORDERED: DOXE10CA2 GT (06:05)
[2018-08-29] MEDS ORDERED: CYAN10009 GT (06:05)
[2018-08-29] MEDS ORDERED: CRAN1CAP7 GT (06:05)
[2018-08-29] MEDS ORDERED: BENZ-13 PO (06:05)
[2018-08-29] MEDS ORDERED: BUDE0.5A4 IH (06:05)
[2018-08-29] MEDS ORDERED: ONDA8TAB6 GT (06:05)
[2018-08-29] MEDS ORDERED: CHOL20004 GT (06:05)
[2018-08-29] MEDS ORDERED: MYCO500T GT (06:05)
[2018-08-29] MEDS ORDERED: POLY15DR27 OP (06:05)
[2018-08-29] MEDS ORDERED: ACET-73 GT (06:05)
[2018-08-29] MEDS ORDERED: PANT40SU2 GT (06:05)
[2018-08-29] MEDS ORDERED: HYDR-3026 GT (06:05)
[2018-08-29] MEDS ORDERED: LACT1CAP7 GT (06:05)
[2018-08-29] MEDS ORDERED: ARIP30TA3 GT (06:05)
[2018-08-29] MEDS ORDERED: NA P133E RC (06:05)
[2018-08-29] MEDS ORDERED: NITR1PAT67 TD (06:05)
[2018-08-29] MEDS ORDERED: LOSA50TA39 GT (06:05)
[2018-08-29] MEDS ORDERED: ASCO500C18 GT (06:05)
[2018-08-29] MEDS ORDERED: METH500T GT (06:05)
[2018-08-29] MEDS ORDERED: TIOT18CA3 IH (06:05)
[2018-08-29] MEDS ORDERED: APIX5TAB4 GT (06:05)
[2018-08-29] MEDS ORDERED: GABA-536 GT (06:05)
[2018-08-29] MEDS ORDERED: CARI3CAP GT (06:05)
[2018-08-29] MEDS ORDERED: NITR0.4T SL (06:05)
[2018-08-29] MEDS ORDERED: POTA20LI4 GT (06:05)
[2018-08-29] MEDS ORDERED: GABA800T11 GT ×2 (06:05)
[2018-08-29] MEDS ORDERED: MELA3TAB GT (06:05)
--- NOTE | 2018-08-29 06:25 | NUR ---
Paged [facility]en to transport pt back to [facility]. ETA 1 to 1.5 hr @ 0730 to 0800. Trip#[id number]
--- NOTE | 2018-08-29 06:28 | NUR ---
gave report to Cristobal (nursing sheet metal duct worker supervisor - [facility])
--- NOTE | 2018-08-29 07:09 | NUR ---
report given to day shift nurse
--- NOTE | 2018-08-29 08:09 | NUR ---
Pt trans back to her SNF via [facility], BETTY noted.
[2018-08-30] MEDS ORDERED: POTA40LI17 GT (18:02)
[2018-08-30] MEDS ORDERED: SODIUM PHOSPHATE RC (18:02)
[2018-08-30] MEDS ORDERED: CRAN3875 GT (18:02)
[2018-09-05] MEDS ORDERED: ACET325T53 PO (17:23)
[2018-09-05] MEDS ORDERED: CEFT1VIA15 IV (17:23)
[2018-09-05] MEDS ORDERED: ACET-1467 GT (17:23)
[2018-09-05] MEDS ORDERED: LACT10SO7 PO (17:23)
[2018-09-05] MEDS ORDERED: ATOR20TA GT (17:23)
[2018-09-05] MEDS ORDERED: HYDR-500 GT (17:23)
[2018-09-05] MEDS ORDERED: MENT71OI TOP (17:23)
[2018-09-05] MEDS ORDERED: CLON1TAB12 PO (17:23)
[2018-09-05] MEDS ORDERED: APIX2.5T GT (17:23)
[2018-09-05] MEDS ORDERED: BUDE0.25 NEB (17:23)
[2018-09-05] MEDS ORDERED: DOXY100T2 PO (17:37)
== END 2018-08-29 08:11 | disposition home or self-care (01) ==
LOC: ER 04:24
DX: R10.9 Unspecified abdominal pain (principal); R11.2 Nausea with vomiting, unspecified; I50.9 Heart failure, unspecified; Z88.5 Allergy status to narcotic agent; Z91.048 Other nonmedicinal substance allergy status; Z91.040 Latex allergy status; Z88.8 Allergy status to other drugs, medicaments and biological substances; Z79.82 Long term (current) use of aspirin; Z79.2 Long term (current) use of antibiotics; Z79.899 Other long term (current) drug therapy
CPT/HCPCS: 36415; 71045; 74176; 80048; 80076; 83690; 83880; 84484; 84702; 85025; 85730; 93005; 96361; 96374; 96375; 99284; J1170; J2405; 70030-TC; A4663; J7040

== ENCOUNTER 2018-08-30 15:08 | Inpatient (IN) | payer MEDICARE, OTHER ==
[~2018-08-30] VITALS: Ht 157.5 cm; Wt 99.9 kg
[~2018-08-30 15:08] MED LIST changes: -APIX5TAB GT; +APIX5TAB4 GT; -ASCO-340 GT; +ASCO500C18 GT; +ASPI-605 GT; +BENZ-13 PO; -BENZ-38 GT; -BUME1TAB4 GT; +BUME2TAB3 GT; +CARI3CAP GT; -CHOL100062 GT; +CHOL20004 GT; -CLON1TAB GT; +CRAN1CAP7 GT; +DOXE10CA2 GT; -DOXY100C GT; -GABA400C GT; +GABA800T11 GT; -HYPR15DR4 OP; +LACT1CAP7 GT; -MELA10TA3 GT; +MELA3TAB GT; +NA P133E RC; +NITR0.4T SL; -NITR0.4T48 SL; -ONDA4TAB5 GT; +ONDA8TAB6 GT; +PANT40SU2 GT; -PANT40TA4 GT; +POLY15DR27 OP; -POTA-88 GT; +POTA20LI4 GT; -PROM25SU10 RC; +PROM25TA15 GT
[2018-08-30] MEDS ORDERED: FAMOTIDINE. 20 MG/2 ML VIAL IV ONE ×2 (15:30→16:19)
[2018-08-30] MEDS ORDERED: MORPHINE SULFATE 2 MG/1 ML DISP.SYRIN IV ONE ×2 (15:30→17:45)
[2018-08-30] MEDS ORDERED: ONDANSETRON 4 MG/2 ML VIAL IV ONE ×2 (15:30→17:45)
--- NOTE | 2018-08-30 15:30 | NUR ---
RECEIVED A 53 Y/O FEMALE PT FROM A NURSING FACILITY C/O N&V, ABD PAIN. PT UPON ARRIVAL CONNCETED TO ECG MONITOR V/S TAKEN, PT HAS RT PORT CATH, AND GT TUBE. PT IS ALERT OX3.
[2018-08-30] MEDS ORDERED: SWABABLE VALVE TRANSFER SET EA MC ONE (15:59)
[2018-08-30] MEDS ORDERED: NORMAL SALINE FLUSH 10 ML DISP.SYRIN ONE (15:59)
[2018-08-30] MEDS ORDERED: IV NORMAL SALINE 250 ML IV ONE (15:59)
[2018-08-30] MEDS ORDERED: IOHEXOL 300MG/ML 100 ML INFUS..BTL ONE (15:59)
[2018-08-30] MEDS ORDERED: DIATR MEGLU/DIATRIZOATE SODIUM 30 ML SOLUTION ONE (15:59)
[2018-08-30] MEDS ORDERED: MORPHINE SULFATE 4 MG/1 ML DISP.SYRIN ONE ×2 (16:18→18:04)
[2018-08-30] MEDS ORDERED: ONDANSETRON 4 MG/2 ML VIAL ONE ×2 (16:19→18:04)
[2018-08-30 16:32] LABS: BASOPHILS % (AUTO) 0.9 % (0.0-2.0); EOSINOPHILS # (AUTO) 0.1 K/uL (0.0-0.7); EOSINOPHILS % (AUTO) 2.8 % (0.0-7.0); HEMATOCRIT 28.4 % (31.2-41.9); HEMOGLOBIN 9.7 g/dL (10.9-14.3); LYMPHOCYTES % (AUTO) 19.2 % (20.5-51.5); MEAN CORPUSCULAR HEMOGLOBIN 32.1 uug (24.7-32.8); MEAN CORPUSCULAR HGB CONC 34 g/dL (32.3-35.6); MEAN CORPUSCULAR VOLUME 94.2 fL (75.5-95.3); MONOCYTES # (AUTO) 0.8 K/uL (2.0-10.0); MONOCYTES % (AUTO) 14.9 % (0.0-11.0); NEUTROPHILS # (AUTO) 3.2 K/uL (1.8-8.9); NEUTROPHILS % (AUTO) 62.2 % (38.5-71.5); PLATELET COUNT (AUTO) 214 K/uL (179-408); RED BLOOD CELL COUNT(AUTO) 3.01 MIL/uL (3.63-4.92); WHITE BLOOD COUNT (AUTO) 5.2 K/uL (3.8-11.8)
[2018-08-30 16:37] LABS: CREATININE 0.7 mg/dL (0.6-1.3); POTASSIUM 3.3 mmol/L (3.5-5.1)
[2018-08-30 16:43] LABS: BILIRUBIN,DIRECT 0.1 mg/dL (0.0-0.2); BILIRUBIN,TOTAL 0.4 mg/dL (0.2-1.0); TOTAL PROTEIN, SERUM 6.3 g/dL (6.4-8.2)
--- NOTE | 2018-08-30 17:30 | NUR ---
PT SEEN BY , GAVE PERMISSION TO USE PORT CATH TO INSERT IV MEDS, PT STARTED TO RECEIVE ORAL CONTRAST , CONSENT SIGNED FOR ABD CT SCAN WITH CONTRAST, ALL IV MEDICATION GIVEN
[2018-08-30] MEDS ORDERED: SODIUM PHOSPHATE RC (18:02)
[2018-08-30] MEDS ORDERED: POTA40LI17 GT (18:02)
[2018-08-30] MEDS ORDERED: CRAN3875 GT (18:02)
--- NOTE | 2018-08-30 18:45 | NUR ---
PT SENT TO RADIOLOGY UNIT FOR CT SCAN
--- NOTE | 2018-08-30 19:12 | NUR ---
PT FOR ADMISSION UNDER THE CARE OF DR CALDERON, TELE UNIT, FULL REPORT GIVEN TO JESUS TREVINO
--- NOTE | 2018-08-30 19:22 | NUR ---
Pt back to ER from CT.
--- NOTE | 2018-08-30 20:19 | NUR ---
Report given to Epi manager presentation.
--- NOTE | 2018-08-30 20:40 | NUR ---
Received patient via gurney, awake alert & oriented no SOB denies chest pain. Still c/o abdominal discomfort. Admission assessment initiated. Noted abdominal wall wound (see picture in chart)& J-tube. Cleansed with NS & covered w/ abd pads. Kept site clean & dry. Vital signs are WNL. Placed on Tele - Sinus rhythm on the monitor.
[2018-08-30] MEDS ORDERED: FLEET ENEMA 133 ML BOTTLE RC PRN (20:45)
[2018-08-30] MEDS ORDERED: hydrOXYzine HCL 25 MG TABLET GT PRN (20:45)
[2018-08-30] MEDS ORDERED: POLYVINYL ALCOHOL OPHT DROPS 15 ML BOTTLE OP PRN (20:45)
[2018-08-30] MEDS ORDERED: NITROGLYCERIN 0.4 MG/TAB BOTTLE SL PRN (20:45)
[2018-08-30 20:49] VITALS: BP 112/58
[2018-08-30] MEDS ORDERED: GABAPENTIN 400 MG CAPSULE GT SCH ×4 (21:00)
[2018-08-30] MEDS ORDERED: Medication Not On Formulary EA (Gabapentin 800 MG) GT SCH (21:00)
[2018-08-30] MEDS: MELATONIN 3 MG TABLET GT SCH (21:10)
--- NOTE | 2018-08-30 21:26 | NUR ---
Neurontin 1600 mg given p.o
--- NOTE | 2018-08-30 22:19 | NUR ---
Patient c/o abdominal pain requesting pain meds. paged MD for orders.
[2018-08-30] MEDS: ONDANSETRON 4 MG/2 ML VIAL IV PRN (22:34)
--- NOTE | 2018-08-30 22:49 | NUR ---
Complaining of N/V. Zofran 4 mgf IVP adm via right chest port. Ice chips provided.
[2018-08-30] MEDS: MORPHINE SULFATE 4 MG/1 ML DISP.SYRIN IV PRN (23:08)
[2018-08-31 00:35] VITALS: BP 120/54
--- NOTE | 2018-08-31 01:59 | NUR ---
Assisted to bedpan, patient voided. Urine sample sent to the lab. for UA.
[2018-08-31 03:07] LABS: *BILIRUBIN,URIN NEGATIVE (NEGATIVE); *BLOOD, URINE NEGATIVE (NEGATIVE); *CLARITY,URINE CLEAR (CLEAR); *COLOR,URINE YELLOW (YELLOW); *KETONES,URINE NEGATIVE (NEGATIVE); *UROBILINOGEN,URINE 0.2 E.U./dl (NORMAL); LEUKOCYTE ESTERASE ,URINE NEGATIVE (NEGATIVE); NITRITE, URINE NEGATIVE (NEGATIVE); PH,URINE 6.5 (5.0-8.0); UGLUCOSE NEGATIVE (NEGATIVE)
[2018-08-31 03:58] LABS: BACTERIA,URINE NONE SEEN /HPF (NONE SEEN); SQUAMOUS EPITHELIAL CELL,UR FEW /HPF (NONE SEEN); TRANSITIONAL EPI CELLS,URINE FEW /LPF (NONE SEEN)
[2018-08-31 04:00] VITALS: BP 95/49
[2018-08-31] MEDS: PANTOPRAZOLE ORAL SUSPENSION 40 MG SUSPDR.PKT GT SCH ×2 (06:14→18:07)
[2018-08-31] MEDS: GABAPENTIN 400 MG CAPSULE GT SCH ×3 (06:14→21:00)
[2018-08-31] MEDS: ONDANSETRON 4 MG/2 ML VIAL IV PRN ×4 (06:15→21:02)
[2018-08-31] MEDS: MORPHINE SULFATE 4 MG/1 ML DISP.SYRIN IV PRN ×3 (06:15→15:04)
[2018-08-31 06:44] LABS: BASOPHILS % (AUTO) 0.9 % (0.0-2.0); EOSINOPHILS # (AUTO) 0.2 K/uL (0.0-0.7); EOSINOPHILS % (AUTO) 4.9 % (0.0-7.0); HEMATOCRIT 30.5 % (31.2-41.9); HEMOGLOBIN 10.1 g/dL (10.9-14.3); LYMPHOCYTES # (AUTO) 1.2 K/uL (20.0-40.0); LYMPHOCYTES % (AUTO) 31.7 % (20.5-51.5); MEAN CORPUSCULAR HEMOGLOBIN 31.3 uug (24.7-32.8); MEAN CORPUSCULAR HGB CONC 33 g/dL (32.3-35.6); MEAN CORPUSCULAR VOLUME 94.4 fL (75.5-95.3); MONOCYTES # (AUTO) 0.5 K/uL (2.0-10.0); MONOCYTES % (AUTO) 13.6 % (0.0-11.0); NEUTROPHILS # (AUTO) 1.9 K/uL (1.8-8.9); NEUTROPHILS % (AUTO) 48.9 % (38.5-71.5); PLATELET COUNT (AUTO) 225 K/uL (179-408); RED BLOOD CELL COUNT(AUTO) 3.23 MIL/uL (3.63-4.92); WHITE BLOOD COUNT (AUTO) 3.9 K/uL (3.8-11.8)
--- NOTE | 2018-08-31 06:46 | NUR ---
Routine night meds given. Assisted w/ all needs, vital signs WNL. patient still c/o on & off abdominal discomfort, medicated w/ Morphine 4 mg IVP PRN. No acute distress. Sinus rhythm on the monitor.
[2018-08-31 07:08] LABS: THYROID STIMULATING HORMONE < 0.007 mIU/mL (0.358-3.740)
[2018-08-31 07:22] LABS: ALANINE AMINOTRANSFERASE 54 U/L (14-59); ALKALINE PHOSPHATASE 149 U/L (50-136); ASPARTATE AMINOTRANSFERASE 41 U/L (15-37); BILIRUBIN,TOTAL 0.4 mg/dL (0.2-1.0); CARBON DIOXIDE 30 mmol/L (21-32); CHLORIDE 104 mmol/L (98-107); CHOLESTEROL 231 mg/dL (<200); CREATININE 0.6 mg/dL (0.6-1.3); GLUCOSE 86 mg/dL (74-106); HDL CHOLESTEROL 48 mg/dL (40-60); MAGNESIUM 1.9 mg/dL (1.8-2.4); POTASSIUM 3.2 mmol/L (3.5-5.1); TOTAL PROTEIN, SERUM 6.6 g/dL (6.4-8.2); TRIGLYCERIDES 134 MG/DL (30-150); UREA NITROGEN, BLOOD 11 mg/dL (7-18)
[2018-08-31 08:19] LABS: IRON, SERUM 39 ug/dL (50-175)
[2018-08-31] MEDS: BUMETANIDE 1 MG TABLET GT SCH ×2 (08:37→18:06)
[2018-08-31] MEDS: ACIDOPHILUS/BULGARICUS CHEW TAB GT SCH (08:38)
[2018-08-31] MEDS: ARIPIPRAZOLE 10 MG TABLET GT SCH (08:38)
[2018-08-31] MEDS: MYCOPHENOLATE MOFETIL 250 MG CAPSULE PO SCH ×2 (08:40→18:07)
[2018-08-31] MEDS ORDERED: POTASSIUM CHLORIDE 20 MEQ POWDER PACKET GT ONE (08:45)
[2018-08-31] MEDS ORDERED: POTASSIUM CHLORIDE 20 MEQ TAB.PRT.SR PO ONE ×2 (08:45→09:00)
[2018-08-31] MEDS: MAGNESIUM OXIDE 400 MG TABLET GT SCH ×2 (08:53→18:07)
[2018-08-31] MEDS ORDERED: DOXEPIN 10 MG CAPSULE GT SCH (09:00)
[2018-08-31] MEDS ORDERED: Medication Not On Formulary EA (Bumetanide (Bumex) 2 MG) GT SCH (09:00)
[2018-08-31] MEDS ORDERED: Medication Not On Formulary EA (Lactobacillus Acidophilus/Pect (Acidophilus-Pectin Capsu GT SCH (09:00)
[2018-08-31] MEDS ORDERED: Medication Not On Formulary EA (Apixaban (Eliquis) 5 MG) GT SCH (09:00)
[2018-08-31] MEDS ORDERED: Medication Not On Formulary EA (Gabapentin 800 MG) GT SCH (09:00)
[2018-08-31] MEDS ORDERED: LOSARTAN POTASSIUM 50 MG TABLET GT SCH (09:00)
[2018-08-31] MEDS ORDERED: Medication Not On Formulary EA (Mycophenolate Mofetil (Cellcept) 500 MG) GT SCH (09:00)
[2018-08-31] MEDS: APIXABAN 5 MG TABLET GT SCH ×2 (09:43→21:44)
--- NOTE | 2018-08-31 10:00 | NUR ---
PATIENT VOMITED TWICE 400CC TOTAL GAVE ZOHRA SEAMAN
[2018-08-31] MEDS: POTASSIUM CHLORIDE 20 MEQ TAB.PRT.SR PO SCH ×2 (10:20→18:06)
[2018-08-31 11:35] VITALS: BP 100/47
--- NOTE | 2018-08-31 13:14 | NUR ---
PATIENT VOMIT 500CC AGAIN WILL GIVE ZOFRAN DOCTOR IS AWARE
[2018-08-31] MEDS ORDERED: NITROGLYCERIN 0.1 MG/HR (=4 CM2) PATCH TD SCH (13:15)
[2018-08-31] MEDS ORDERED: IV D5/ 0.9% NACL 1,000 ML IV STA (14:35)
[2018-08-31] MEDS ORDERED: POLYVINYL ALCOHOL OPHT DROPS 15 ML BOTTLE EACHEYE PRN (14:53)
[2018-08-31 15:28] VITALS: BP 100/49
[2018-08-31] MEDS ORDERED: IV D5 1/2 NS 1000 ML 1,000 ML IV STA (15:43)
[2018-08-31] MEDS: IV D5 1/2 NS 1000 ML 1,000 ML IV SCH (17:35)
[2018-08-31] MEDS: HYDROMORPHONE 1 MG/1 ML DISP.SYRIN IV PRN ×2 (18:08→21:00)
[2018-08-31 20:00] VITALS: BP 97/52
--- NOTE | 2018-08-31 20:00 | NUR ---
Dr. Delvalle in room.
[2018-08-31] MEDS: ATORVASTATIN 20 MG TABLET GT SCH (21:01)
[2018-08-31] MEDS: MELATONIN 3 MG TABLET GT SCH (21:01)
--- NOTE | 2018-08-31 23:30 | NUR ---
24-Hour Urine collection started.
[2018-09-01 00:08] VITALS: BP 111/66
[2018-09-01] MEDS: HYDROMORPHONE 1 MG/1 ML DISP.SYRIN IV PRN ×3 (01:19→08:43)
--- NOTE | 2018-09-01 03:18 | NUR ---
J-tube site care & abdominal wall wound dressing change done.
[2018-09-01 04:00] VITALS: BP 123/26
[2018-09-01] MEDS: IV D5 1/2 NS 1000 ML 1,000 ML IV SCH ×2 (04:39→19:40)
[2018-09-01] MEDS: GABAPENTIN 400 MG CAPSULE GT SCH ×3 (06:10→20:56)
--- NOTE | 2018-09-01 06:15 | NUR ---
Patient awake, crying c/o severe abdominal pain radiating to her back. Early dose of Dilaudid 1mg IVP administered. Instructed deep breathing exercise.
--- NOTE | 2018-09-01 06:16 | NUR ---
Patient stated her pain level is 10/10.
[2018-09-01] MEDS: HYDROMORPHONE 2 MG/1 ML DISP.SYRIN IVP PRN ×6 (06:20→23:28)
--- NOTE | 2018-09-01 06:28 | NUR ---
WOUND CARE CONSULT WOUND CARE RECEIVED CONSULT FOR WOUND ON ABDOMINAL WALL AND J-TUBE SITE. WOUND CARE WILL DEFER CONSULT AND TREATMENT PLANS TO PLASTIC SURGICAL TEAM WHO HAS BEEN NOTIFIED OF THE CONSULT. PATIENT WITH SIERRA AT 12, ALL PRESSURE ULCER PREVENTION MEASURES ARE NOTED TO BE IN PLACE. WILL SEE PRN.
[2018-09-01] MEDS ORDERED: Z GUARD REMEDY PASTE 57 GM TUBE TOP PRN (06:30)
[2018-09-01] MEDS: ONDANSETRON 4 MG/2 ML VIAL IV PRN ×2 (08:44→17:43)
[2018-09-01] MEDS: TOPIRAMATE 25 MG TABLET PO SCH ×2 (09:00→20:56)
[2018-09-01] MEDS: ACIDOPHILUS/BULGARICUS CHEW TAB GT SCH (09:48)
[2018-09-01] MEDS: BUMETANIDE 1 MG TABLET GT SCH ×2 (09:48→17:40)
[2018-09-01] MEDS: MAGNESIUM OXIDE 400 MG TABLET GT SCH ×2 (09:49→17:40)
[2018-09-01] MEDS: PANTOPRAZOLE ORAL SUSPENSION 40 MG SUSPDR.PKT GT SCH ×2 (09:49→17:40)
[2018-09-01] MEDS: ARIPIPRAZOLE 10 MG TABLET GT SCH (09:49)
[2018-09-01] MEDS: POTASSIUM CHLORIDE 20 MEQ TAB.PRT.SR PO SCH ×2 (09:49→17:40)
[2018-09-01] MEDS: MYCOPHENOLATE MOFETIL 250 MG CAPSULE PO SCH ×2 (09:50→17:40)
[2018-09-01] MEDS: NITROGLYCERIN 0.1 MG/HR (=4 CM2) PATCH TD SCH (09:58)
[2018-09-01] MEDS: APIXABAN 5 MG TABLET GT SCH ×2 (09:59→20:54)
[2018-09-01 10:00] LABS: FERRITIN 46 ng/mL (8-252)
[2018-09-01 15:04] VITALS: BP 121/66
--- NOTE | 2018-09-01 15:16 | NUR ---
PATIENT IS FEELING SICK AND NAUSEATED AMESIS TIMES 4, ZOFRAN IS GIVEN PER ORDER WITH HELP BUT NAUSEA OCCURS AGAIN IS NOTIFIED
[2018-09-01 17:19] VITALS: BP 113/64
[2018-09-01 20:00] VITALS: BP 120/49
--- NOTE | 2018-09-01 20:00 | NUR ---
RECEIVED PATIENT AWAKE IN BED. A/O X4. NO C/O PAIN AT THIS TIME. IVF INFUSING WELL TO GERSON-CATH NOTED TO RIGHT UPPER CHEST. ON RA. NO RESP. DISTRESS NOTED. PATIENT IS ON A 24 HOUR URINE COLLECTION. WILL BE FINISHED AT 2330. CALL LIGHT IN REACH. ALL NEEDS ATTENDED. WILL CONTINUE TO MONITOR AND ASSESS.
[2018-09-01] MEDS: MELATONIN 3 MG TABLET GT SCH (20:55)
[2018-09-01] MEDS: ATORVASTATIN 20 MG TABLET GT SCH (20:55)
[2018-09-01] MEDS: DOXEPIN 10 MG CAPSULE GT SCH (20:55)
[2018-09-01] MEDS: FERROUS SULFATE 325 MG TABEC PO SCH (20:55)
--- NOTE | 2018-09-01 23:00 | NUR ---
Received patient from [facility]. Patient awake in bed, not in any form of distress. With oxygen support via nasal cannula, maintained. With portacath at right upper chest, patent, intact and with clean dressing to ongoing IV Fluid, infusing well. With wilks catheter to urine bag, draining clear yellow urine, noted patient on 24hr urine collection. Patient is alert and oriented x4. Bed in low position, side rails up x 2, call light within reach. Noise and lights subdued. will continue to monitor.
--- NOTE | 2018-09-01 23:10 | NUR ---
Patient has temperature of 100.8F, called Dr. Ca for medication orders for fever.
[2018-09-02] MEDS ORDERED: ACETAMINOPHEN 325 MG TABLET PO PRN
[2018-09-02] MEDS ORDERED: VANCOMYCIN IV 1 G in PREMIXED 0 EACH IV ONE ×2
--- NOTE | 2018-09-02 | NUR ---
Per Dr. Ca, patient can have tylenol 650mg for the fever and he ordered to start Vancomycin and Zosyn IV - noted.
[2018-09-02] MEDS ORDERED: PIPERACILLIN/TAZOBACTAM/D5W 3.375 G in PREMIXED 1 EACH IV ONE (01:00)
[2018-09-02] MEDS ORDERED: PIPERACILLIN/TAZOBACTAM/D5W 50 ML IV ONE (01:27)
[2018-09-02] MEDS ORDERED: VANCOMYCIN IV 200 ML ONE (01:27)
[2018-09-02] MEDS ORDERED: PIPERACILLIN/TAZOBACTAM/D5W 3.375 G in PREMIXED 1 EACH IV SCH (02:00)
[2018-09-02] MEDS: HYDROMORPHONE 2 MG/1 ML DISP.SYRIN IVP PRN ×5 (03:46→21:44)
[2018-09-02] MEDS: ONDANSETRON 4 MG/2 ML VIAL IV PRN ×3 (03:55→18:01)
[2018-09-02 04:00] VITALS: BP 90/45
[2018-09-02] MEDS: GABAPENTIN 400 MG CAPSULE GT SCH ×3 (06:00→21:29)
--- NOTE | 2018-09-02 06:17 | NUR ---
Patient slept intermittently throughout hte night. With portacath at right upper chest, patent, intact and with clean dressing to ongoing IV Fluid, infusing well. With wilks catheter to urine bag, draining clear yellow urine. Latest temperature is 99.2. With complains of pain, prn medication given. Wound care done. Attended all needs. Ensured safety and comfort.
--- NOTE | 2018-09-02 07:00 | NUR ---
Patient is sleeping in bed w/o any distress, Safety reinforced
[2018-09-02 07:26] LABS: BASOPHILS % (AUTO) 0.3 % (0.0-2.0); EOSINOPHILS # (AUTO) 0.2 K/uL (0.0-0.7); EOSINOPHILS % (AUTO) 4.7 % (0.0-7.0); HEMATOCRIT 27.8 % (31.2-41.9); HEMOGLOBIN 9.2 g/dL (10.9-14.3); LYMPHOCYTES # (AUTO) 0.9 K/uL (20.0-40.0); LYMPHOCYTES % (AUTO) 19.6 % (20.5-51.5); MEAN CORPUSCULAR HEMOGLOBIN 31.4 uug (24.7-32.8); MEAN CORPUSCULAR HGB CONC 33 g/dL (32.3-35.6); MEAN CORPUSCULAR VOLUME 94.9 fL (75.5-95.3); MONOCYTES # (AUTO) 0.6 K/uL (2.0-10.0); MONOCYTES % (AUTO) 13.1 % (0.0-11.0); NEUTROPHILS % (AUTO) 62.3 % (38.5-71.5); PLATELET COUNT (AUTO) 197 K/uL (179-408); RED BLOOD CELL COUNT(AUTO) 2.93 MIL/uL (3.63-4.92); WHITE BLOOD COUNT (AUTO) 4.8 K/uL (3.8-11.8)
[2018-09-02 07:43] LABS: CREATININE 0.7 mg/dL (0.6-1.3); MAGNESIUM 1.6 mg/dL (1.8-2.4); PHOSPHOROUS 4.4 mg/dL (2.5-4.9); POTASSIUM 3.3 mmol/L (3.5-5.1)
[2018-09-02 07:49] LABS: THYROID STIMULATING HORMONE 0.515 mIU/mL (0.358-3.740)
[2018-09-02 08:01] VITALS: BP 112/53
[2018-09-02] MEDS: IV D5 1/2 NS 1000 ML 1,000 ML IV SCH ×2 (08:04→21:44)
[2018-09-02 08:06] LABS: *IMMUNOGLOBULIN G, SERUM 553 mg/dL (700-1600); IMMUNOGLOBULIN A, SERUM 108 mg/dL (87-352); IMMUNOGLOBULIN M, SERUM 65 mg/dL (26-217); TRIIODOTHYRONINE, FREE 3.1 pg/mL (2.0-4.4)
[2018-09-02] MEDS ORDERED: POTASSIUM CHLORIDE 20 MEQ POWDER PACKET PO ONE (08:30)
[2018-09-02] MEDS ORDERED: POTASSIUM CHLORIDE 20 MEQ TAB.PRT.SR PO ONE (09:00)
[2018-09-02] MEDS: FERROUS SULFATE 325 MG TABEC PO SCH ×2 (09:00→21:00)
[2018-09-02] MEDS: POTASSIUM CHLORIDE 20 MEQ TAB.PRT.SR PO SCH ×2 (09:00→17:55)
[2018-09-02] MEDS: MAGNESIUM OXIDE 400 MG TABLET GT SCH ×2 (09:00→17:55)
[2018-09-02] MEDS ORDERED: DIATR MEGLU/DIATRIZOATE SODIUM 30 ML SOLUTION ONE ×2 (09:17→09:21)
[2018-09-02] MEDS: MAGNESIUM SULFATE/D5W 100 ML IV SCH ×2 (09:54→11:13)
[2018-09-02] MEDS: NITROGLYCERIN 0.1 MG/HR (=4 CM2) PATCH TD SCH (09:55)
[2018-09-02 10:07] LABS: A/G RATIO 1.2 (0.7-1.7); ALBUMIN 3.1 g/dL (2.9-4.4); ALPHA-1-GLOBULIN 0.3 g/dL (0.0-0.4); ALPHA-2-GLOBULIN 0.8 g/dL (0.4-1.0); BETA GLOBULIN 1.1 g/dL (0.7-1.3); GAMMA GLOBULIN 0.4 g/dL (0.4-1.8); GLOBULIN, TOTAL 2.6 g/dL (2.2-3.9); M-SPIKE Not Observed g/dL (Not Observed)
--- NOTE | 2018-09-02 10:34 | NUR ---
Patient req to hold po meds 0900 until radiology tests are done
[2018-09-02 11:27] LABS: *BILIRUBIN,URIN NEGATIVE (NEGATIVE); *BLOOD, URINE NEGATIVE (NEGATIVE); *CLARITY,URINE CLEAR (CLEAR); *COLOR,URINE YELLOW (YELLOW); *KETONES,URINE NEGATIVE (NEGATIVE); *UROBILINOGEN,URINE 0.2 E.U./dl (NORMAL); LEUKOCYTE ESTERASE ,URINE 2+ (NEGATIVE); NITRITE, URINE NEGATIVE (NEGATIVE); UGLUCOSE NEGATIVE (NEGATIVE)
[2018-09-02 11:32] LABS: BACTERIA,URINE FEW /HPF (NONE SEEN); RBC,URINE 0-3 /HPF (0-3); SQUAMOUS EPITHELIAL CELL,UR FEW /HPF (NONE SEEN); WBC,URINE 20-50 /HPF (0-3)
[2018-09-02 11:41] VITALS: BP 100/41
[2018-09-02] MEDS: BUMETANIDE 1 MG TABLET GT SCH ×2 (13:15→17:55)
[2018-09-02] MEDS: ARIPIPRAZOLE 10 MG TABLET GT SCH (13:15)
[2018-09-02] MEDS: MYCOPHENOLATE MOFETIL 250 MG CAPSULE PO SCH ×2 (13:17→18:00)
[2018-09-02] MEDS: APIXABAN 5 MG TABLET GT SCH ×2 (13:19→21:00)
[2018-09-02] MEDS: ACIDOPHILUS/BULGARICUS CHEW TAB GT SCH (13:23)
[2018-09-02] MEDS ORDERED: ALBUTEROL SULFATE 1.25 MG/3 ML NEBU NEB SCH (13:30)
[2018-09-02] MEDS: PANTOPRAZOLE ORAL SUSPENSION 40 MG SUSPDR.PKT GT SCH ×2 (13:31→17:55)
[2018-09-02] MEDS: PIPERACILLIN/TAZOBACTAM/D5W 50 ML IV SCH ×2 (14:01→21:34)
[2018-09-02 15:43] VITALS: BP 104/50
--- NOTE | 2018-09-02 16:18 | NUR ---
PATIENT REFUSED TO CHANGE PORTACATH NEEDLE WITHOUT HEPARIN, WE EDUCATED THAT WE DONT DO IT HERE IN THE HOSPITAL, SHE SAID SHE WOULNDT CHANGE IT WITH OUT IT.
[2018-09-02] MEDS ORDERED: LACTULOSE 20 G/30 ML LIQUID UDC PO PRN (18:15)
--- NOTE | 2018-09-02 19:30 | NUR ---
Received patient awake in bed, not in any form of distress. With oxygen support via nasal cannula, maintained. With portacath at right upper chest, patent, intact and with clean dressing to ongoing IV Fluid, infusing well. Noted per day shift nurse, portacatheter due for changing of hubber needle, however due to patient disagreeing to change it without the heparin injection it was decided that it will be done tomorrow morning. With wilks catheter to urine bag, draining clear yellow urine. Patient is alert and oriented x4. Bed in low position, side rails up x 2, call light within reach. Noise and lights subdued. will continue to monitor.
[2018-09-02] MEDS: BUDESONIDE 0.25 MG/2 ML NEBU NEB SCH (19:33)
[2018-09-02 21:15] VITALS: BP 107/50
[2018-09-02] MEDS: MELATONIN 3 MG TABLET GT SCH (21:30)
[2018-09-02] MEDS: ATORVASTATIN 20 MG TABLET GT SCH (21:30)
--- NOTE | 2018-09-02 21:30 | NUR ---
Noted patient for EGD, verified with MADELINE Berry of GI, EGD is scheduled on Wednesday per nursing decorating supervisor it will be at 9am. Will have patient sign consent form and will attach to chart.
[2018-09-02] MEDS: DOXEPIN 10 MG CAPSULE GT SCH (21:33)
--- NOTE | 2018-09-02 23:00 | NUR ---
Per Cinthya, to hold Eliquis in preparation for EGD on Wednesday. Verified with Dr. Ca who okayed to hold the eliquis and no other medication orders given regarding any possible replacement for the eliquis. Consent for EGD attached to chart.
--- NOTE | 2018-09-02 23:30 | NUR ---
Noted order for wound culture of G-tube site and mid abdomen wound - taken and sent to lab. Wound care done.
[2018-09-03] MEDS: HYDROMORPHONE 2 MG/1 ML DISP.SYRIN IVP PRN ×5 (03:38→20:43)
[2018-09-03 03:52] VITALS: BP 125/68
[2018-09-03] MEDS: PIPERACILLIN/TAZOBACTAM/D5W 50 ML IV SCH ×3 (05:15→21:00)
[2018-09-03] MEDS: GABAPENTIN 400 MG CAPSULE GT SCH ×3 (05:16→20:44)
--- NOTE | 2018-09-03 06:02 | NUR ---
Patient slept intermittently throughout hte night. With portacath at right upper chest, patent, intact and with clean dressing to ongoing IV Fluid, infusing well. With wilks catheter to urine bag, draining clear yellow urine. With complains of pain, prn medication given. Wound care done. Attended all needs. Ensured safety and comfort.
[2018-09-03] MEDS: ONDANSETRON 4 MG/2 ML VIAL IV PRN ×4 (06:05→20:44)
[2018-09-03 06:36] LABS: BASOPHILS % (AUTO) 0.6 % (0.0-2.0); EOSINOPHILS # (AUTO) 0.2 K/uL (0.0-0.7); EOSINOPHILS % (AUTO) 4.4 % (0.0-7.0); HEMATOCRIT 25.8 % (31.2-41.9); HEMOGLOBIN 8.7 g/dL (10.9-14.3); LYMPHOCYTES # (AUTO) 0.7 K/uL (20.0-40.0); LYMPHOCYTES % (AUTO) 15.8 % (20.5-51.5); MEAN CORPUSCULAR HGB CONC 34 g/dL (32.3-35.6); MEAN CORPUSCULAR VOLUME 95.2 fL (75.5-95.3); MONOCYTES # (AUTO) 0.6 K/uL (2.0-10.0); MONOCYTES % (AUTO) 14.7 % (0.0-11.0); NEUTROPHILS # (AUTO) 2.8 K/uL (1.8-8.9); NEUTROPHILS % (AUTO) 64.5 % (38.5-71.5); PLATELET COUNT (AUTO) 178 K/uL (179-408); RED BLOOD CELL COUNT(AUTO) 2.71 MIL/uL (3.63-4.92); WHITE BLOOD COUNT (AUTO) 4.3 K/uL (3.8-11.8)
[2018-09-03 07:07] LABS: BILIRUBIN,TOTAL 0.4 mg/dL (0.2-1.0); CREATININE 0.6 mg/dL (0.6-1.3); MAGNESIUM 1.7 mg/dL (1.8-2.4); POTASSIUM 3.5 mmol/L (3.5-5.1); TOTAL PROTEIN, SERUM 5.8 g/dL (6.4-8.2)
--- NOTE | 2018-09-03 07:30 | NUR ---
on bed, resting , denies discomfort at this time.
[2018-09-03] MEDS: BUDESONIDE 0.25 MG/2 ML NEBU NEB SCH ×2 (07:35→19:26)
[2018-09-03] MEDS: DOXYCYCLINE HYCLATE 100 MG TABLET PO SCH ×2 (08:27→20:44)
[2018-09-03] MEDS: ARIPIPRAZOLE 10 MG TABLET GT SCH (08:28)
[2018-09-03] MEDS: MYCOPHENOLATE MOFETIL 250 MG CAPSULE PO SCH ×2 (08:31→16:54)
[2018-09-03] MEDS: POTASSIUM CHLORIDE 20 MEQ TAB.PRT.SR PO SCH ×2 (08:31→16:54)
[2018-09-03] MEDS: MAGNESIUM OXIDE 400 MG TABLET GT SCH ×2 (08:31→16:54)
[2018-09-03] MEDS: PANTOPRAZOLE ORAL SUSPENSION 40 MG SUSPDR.PKT GT SCH ×2 (08:31→16:54)
[2018-09-03] MEDS: NITROGLYCERIN 0.1 MG/HR (=4 CM2) PATCH TD SCH (08:35)
[2018-09-03] MEDS: BUMETANIDE 1 MG TABLET GT SCH ×3 (08:36→17:06)
[2018-09-03] MEDS: FERROUS SULFATE 325 MG TABEC PO SCH ×3 (08:42→21:00)
[2018-09-03] MEDS: ACIDOPHILUS/BULGARICUS CHEW TAB GT SCH (08:52)
--- NOTE | 2018-09-03 09:00 | NUR ---
med for pain and will bumex later if bp ok.
[2018-09-03 10:00] VITALS: BP 99/55
[2018-09-03] MEDS: IV D5 1/2 NS 1000 ML 1,000 ML IV SCH (10:57)
[2018-09-03 11:13] VITALS: BP 100/44
--- NOTE | 2018-09-03 12:30 | NUR ---
appetite fair, tolerating well.
[2018-09-03] MEDS ORDERED: MAGNESIUM SULFATE/D5W 100 ML IV SCH (13:00)
--- NOTE | 2018-09-03 14:00 | NUR ---
resting well. meds given , appreciative
[2018-09-03 15:08] VITALS: BP 109/50
--- NOTE | 2018-09-03 18:31 | NUR ---
seen by dr acharya, made order and carried out. patient aware of md order. no acute distress or respiratory distress. med x 3 for pain for shift x 2 for nausea, no emesis. multiple loose bm, sent specimen to lab
[2018-09-03] MEDS: CLONAZEPAM 1 MG TABLET PO PRN (18:51)
--- NOTE | 2018-09-03 19:20 | NUR ---
RECEIVED PATIENT LYING IN BED. AAOX4. IN NO ACUTE DISTRESS. DENIES ANY SOB. PORT A CATH ON RIGHT UPPER CHEST AREA INTACT AND PATENT. IVF INFUSING. NEEDS ASSESSED AND ATTENDED TO. SAFETY MEASURE INITIATED AND CALL YANG WITHIN REACH.
[2018-09-03 20:27] LABS: *OCCULT BLOOD STOOL NEGATIVE (NEGATIVE)
[2018-09-03] MEDS: DOXEPIN 10 MG CAPSULE GT SCH ×2 (20:44→21:00)
[2018-09-03] MEDS: ATORVASTATIN 20 MG TABLET GT SCH ×2 (20:44→21:00)
[2018-09-03] MEDS: MELATONIN 3 MG TABLET GT SCH (20:45)
[2018-09-03] MEDS ORDERED: NORMAL SALINE IV SCH (22:00)
[2018-09-03] MEDS ORDERED: ERYTHROMYCIN LACTOBIONATE IV SCH (22:00)
[2018-09-04] MEDS: ONDANSETRON 4 MG/2 ML VIAL IV PRN ×6 (00:53→21:11)
[2018-09-04] MEDS: HYDROMORPHONE 2 MG/1 ML DISP.SYRIN IVP PRN ×6 (00:54→21:11)
[2018-09-04] MEDS: IV D5 1/2 NS 1000 ML 1,000 ML IV PRN ×2 (02:04→19:06)
[2018-09-04] MEDS: GABAPENTIN 400 MG CAPSULE GT SCH ×3 (05:33→20:32)
[2018-09-04 05:43] VITALS: BP 115/60
--- NOTE | 2018-09-04 06:19 | NUR ---
AAOX4. IN NO ACUTE DISTRESS. DENIES ANY SOB. DILAUDID 2MG PRN PER ORDER GIVEN FOR COMPLAIN OF PAIN AND EFFECTIVE. PORT A CATH ON RIGHT UPPER CHEST AREA INTACT AND PATENT. IVF INFUSING. PALMER CATHETER DRAINING VIA GRAVITY. NEEDS ASSESSED AND ATTENDED TO. SAFETY MEASURE MAINTAINED AND CALL YANG WITHIN REACH.
[2018-09-04] MEDS: PIPERACILLIN/TAZOBACTAM/D5W 50 ML IV SCH ×3 (06:24→21:10)
[2018-09-04 06:41] LABS: BASOPHILS % (AUTO) 0.5 % (0.0-2.0); EOSINOPHILS # (AUTO) 0.2 K/uL (0.0-0.7); EOSINOPHILS % (AUTO) 3.5 % (0.0-7.0); HEMATOCRIT 26.3 % (31.2-41.9); HEMOGLOBIN 8.7 g/dL (10.9-14.3); LYMPHOCYTES # (AUTO) 0.9 K/uL (20.0-40.0); LYMPHOCYTES % (AUTO) 18.3 % (20.5-51.5); MEAN CORPUSCULAR HEMOGLOBIN 31.5 uug (24.7-32.8); MEAN CORPUSCULAR HGB CONC 33 g/dL (32.3-35.6); MEAN CORPUSCULAR VOLUME 94.8 fL (75.5-95.3); MONOCYTES # (AUTO) 0.6 K/uL (2.0-10.0); MONOCYTES % (AUTO) 12.5 % (0.0-11.0); NEUTROPHILS # (AUTO) 3.2 K/uL (1.8-8.9); NEUTROPHILS % (AUTO) 65.2 % (38.5-71.5); PLATELET COUNT (AUTO) 195 K/uL (179-408); RED BLOOD CELL COUNT(AUTO) 2.78 MIL/uL (3.63-4.92)
[2018-09-04 06:56] LABS: CREATININE 0.7 mg/dL (0.6-1.3); MAGNESIUM 1.7 mg/dL (1.8-2.4); PHOSPHOROUS 3.8 mg/dL (2.5-4.9); POTASSIUM 3.6 mmol/L (3.5-5.1)
--- NOTE | 2018-09-04 07:30 | NUR ---
on bed, resting well, no distress noted
[2018-09-04] MEDS: BUDESONIDE 0.25 MG/2 ML NEBU NEB SCH ×2 (07:37→20:27)
[2018-09-04] MEDS: CLONAZEPAM 1 MG TABLET PO PRN ×2 (08:57→20:45)
[2018-09-04] MEDS: NITROGLYCERIN 0.1 MG/HR (=4 CM2) PATCH TD SCH (08:57)
[2018-09-04] MEDS: MAGNESIUM OXIDE 400 MG TABLET GT SCH ×2 (08:58→16:59)
[2018-09-04] MEDS: ACIDOPHILUS/BULGARICUS CHEW TAB GT SCH (08:58)
[2018-09-04] MEDS: ARIPIPRAZOLE 10 MG TABLET GT SCH (08:58)
[2018-09-04] MEDS: BUMETANIDE 1 MG TABLET GT SCH ×2 (08:58→16:59)
[2018-09-04] MEDS: DOXYCYCLINE HYCLATE 100 MG TABLET PO SCH ×2 (08:58→20:32)
[2018-09-04] MEDS: FERROUS SULFATE 325 MG TABEC PO SCH ×2 (08:58→20:38)
[2018-09-04] MEDS: POTASSIUM CHLORIDE 20 MEQ TAB.PRT.SR PO SCH ×2 (08:59→16:59)
[2018-09-04] MEDS: MYCOPHENOLATE MOFETIL 250 MG CAPSULE PO SCH ×2 (08:59→16:59)
[2018-09-04] MEDS: PANTOPRAZOLE ORAL SUSPENSION 40 MG SUSPDR.PKT GT SCH ×2 (08:59→16:58)
--- NOTE | 2018-09-04 09:00 | NUR ---
dressing change done abdomen, scant yellow drain from incision , gt scant amount of yellowish drainage. tolerated dressing change
[2018-09-04 11:53] VITALS: BP 100/56
[2018-09-04] MEDS ORDERED: MAGNESIUM SULFATE/D5W 100 ML IV SCH (12:30)
--- NOTE | 2018-09-04 12:30 | NUR ---
sleeping well after pain med and nausea med
[2018-09-04 16:13] VITALS: BP 112/64
--- NOTE | 2018-09-04 17:00 | NUR ---
med x 1 for pain med and nausea, no emesis.
--- NOTE | 2018-09-04 19:20 | NUR ---
emesis x 1 digested food, oral care provided, had loose bm yellow greenish stool. good preicare provided, patient appreciative.
--- NOTE | 2018-09-04 20:00 | NUR ---
AWAKE IN BED, AAOX3. NO S/S OF PAIN OR ACUTE DISTRESS ON ASSESSMENT. PERSONAL BELONGINGS LEFT WITHIN PATIENT'S REACH
[2018-09-04 20:22] VITALS: BP 115/51
[2018-09-04] MEDS: ATORVASTATIN 20 MG TABLET GT SCH (20:29)
[2018-09-04] MEDS: DOXEPIN 10 MG CAPSULE GT SCH (20:34)
[2018-09-04] MEDS: MELATONIN 3 MG TABLET GT SCH (20:39)
[2018-09-05 01:00] VITALS: BP 118/76
[2018-09-05] MEDS: HYDROMORPHONE 2 MG/1 ML DISP.SYRIN IVP PRN ×4 (02:29→19:58)
[2018-09-05] MEDS: ONDANSETRON 4 MG/2 ML VIAL IV PRN ×3 (04:37→17:59)
[2018-09-05 04:52] VITALS: BP 101/63
--- NOTE | 2018-09-05 04:58 | NUR ---
INFORMATION SENT: JAQUAN SWANN NOTES 09/20,UR 09/04 INSURANCE NAME:[facility] FAX NUMBER: [phone] FAX SENT
[2018-09-05] MEDS: GABAPENTIN 400 MG CAPSULE GT SCH ×2 (05:06→13:30)
[2018-09-05] MEDS: PIPERACILLIN/TAZOBACTAM/D5W 50 ML IV SCH (05:07)
--- NOTE | 2018-09-05 06:14 | NUR ---
PATIENT AWAKE IN BED NO C/O PAIN OR ANY DISTRESS AT THIS TIME PAIN MEDS GIVEN REQUEST PRN SAFETY MEASURES MAINTAINED AT ALL TIMES
--- NOTE | 2018-09-05 07:15 | NUR ---
Jenny AAOx4. no c/of pain wilks catheter full and urine backing up to insertion site. bag emptied. and a total of 3050 cc emptied. Addendum: 09/05/18 at 0816 by KIERA MELENDREZ RN patient requesting to have exact time for scheduled EGD pt. educated on procedure and she will be informed of exact time once GI nurses call unit to inform. patient not happy with vitals been taken at this time. 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 I want a CT to be order immediately" Pt. educated that will follow up and examine and decide tests needed it
[2018-09-05] MEDS: BUDESONIDE 0.25 MG/2 ML NEBU NEB SCH ×2 (07:30→19:21)
--- NOTE | 2018-09-05 07:45 | NUR ---
At this time pt. informed she will be leaf size picker for EGD within the next 30 minutes.
[2018-09-05 08:00] VITALS: BP 107/54
--- NOTE | 2018-09-05 08:10 | NUR ---
Pt. taken down for schedule EGD.
[2018-09-05] MEDS: FERROUS SULFATE 325 MG TABEC PO SCH (09:00)
--- NOTE | 2018-09-05 10:13 | NUR ---
At this time pt. back from GI procedure. as reported, patient refusing vital signs to be taken by GI nurses and demanding pain medication. pt. back on the floor. Will continue with care plan.
[2018-09-05 10:15] VITALS: BP 110/60
--- NOTE | 2018-09-05 10:16 | NUR ---
Bedside report given to Zunilda Frederick she was informed of report received from GI staff. she was also informed that charge Zunilda aware of pt's behavior. Addendum: 09/05/18 at 1017 by KIERA MELENDREZ RN And that pt. was NPO before procedure.
[2018-09-05] MEDS: BUMETANIDE 1 MG TABLET GT SCH ×2 (10:53→17:00)
[2018-09-05] MEDS: MAGNESIUM OXIDE 400 MG TABLET GT SCH ×2 (10:53→17:58)
[2018-09-05] MEDS: ARIPIPRAZOLE 10 MG TABLET GT SCH (10:54)
[2018-09-05] MEDS: ACIDOPHILUS/BULGARICUS CHEW TAB GT SCH (10:54)
[2018-09-05] MEDS: DOXYCYCLINE HYCLATE 100 MG TABLET PO SCH (10:55)
[2018-09-05] MEDS: POTASSIUM CHLORIDE 20 MEQ TAB.PRT.SR PO SCH ×2 (10:55→17:58)
[2018-09-05] MEDS: PANTOPRAZOLE ORAL SUSPENSION 40 MG SUSPDR.PKT GT SCH ×2 (10:55→17:58)
[2018-09-05] MEDS: NITROGLYCERIN 0.1 MG/HR (=4 CM2) PATCH TD SCH (10:56)
[2018-09-05] MEDS: MYCOPHENOLATE MOFETIL 250 MG CAPSULE PO SCH ×2 (10:57→17:58)
[2018-09-05] MEDS ORDERED: CEFTRIAXONE 1 G in IV DEXTROSE 5% 50 ML IV SCH (14:00)
[2018-09-05 15:21] VITALS: BP 105/72
[2018-09-05] MEDS ORDERED: APIXABAN 5 MG TABLET GT SCH (17:00)
[2018-09-05] MEDS ORDERED: ACET-1467 GT (17:23)
[2018-09-05] MEDS ORDERED: BUDE0.25 NEB (17:23)
[2018-09-05] MEDS ORDERED: HYDR-500 GT (17:23)
[2018-09-05] MEDS ORDERED: CLON1TAB12 PO (17:23)
[2018-09-05] MEDS ORDERED: ATOR20TA GT (17:23)
[2018-09-05] MEDS ORDERED: MENT71OI TOP (17:23)
[2018-09-05] MEDS ORDERED: CEFT1VIA15 IV (17:23)
[2018-09-05] MEDS ORDERED: APIX2.5T GT (17:23)
[2018-09-05] MEDS ORDERED: ACET325T53 PO (17:23)
[2018-09-05] MEDS ORDERED: LACT10SO7 PO (17:23)
[2018-09-05] MEDS ORDERED: DOXY100T2 PO (17:37)
[2018-09-05] MEDS ORDERED: LIDOCAINE HCL 1% 20 ML VIAL MC ONE (21:15)
[2018-09-05] MEDS ORDERED: DEXTROSE 5% IV ONE (21:15)
[2018-09-05] MEDS ORDERED: PROPOFOL 200 MG/20 ML BOTTLE IV ONE (21:15)
[2018-09-05] MEDS ORDERED: IRR STERIL WATER FOR IRR 1000 ML BOTTLE IR ONE (21:15)
--- NOTE | 2018-09-05 21:15 | NUR ---
PATIENT ALERT ORIENTED, DISCONTINUE PALMER CATH PER ORDER, PATIENT REFUSED THE HUEVER NEEDLE BE REMOVE FROM THE GERSON CATH. 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 PATIENT TOOK ALL BELONGINGS, PATIENT REFUSED TO TAKE HEEL PROTECTORS/OR BOOTS. PATIENT DISCHARGE TO [facility].
--- NOTE | 2018-09-06 06:20 | NUR ---
INFORMATION SENT: FACESCYDNEY,JAQUAN NOTES 09/05,CONSULTATION,DISCHARGE SUMMARY,UR 09/05 INSURANCE NAME:[facility] FAX NUMBER: [phone] FAX SENT
== END 2018-09-05 21:16 | DRG 222 ==
LOC: ER 15:08 → TELE3 20:19 → MEDSURG3 08-31 14:00
PROVIDERS: ADMIT Internal Medicine; ATTEND Internal Medicine
PROC: 0DW64UZ Revision of Feeding Device in Stomach, Percutaneous Endoscopic Approach (ICD-10-PCS; principal; 2018-09-05)
PROC: 0DB68ZX Excision of Stomach, Via Natural or Artificial Opening Endoscopic, Diagnostic (ICD-10-PCS; principal; 2018-09-05)
DX: K94.23 Gastrostomy malfunction (principal); D68.62 Lupus anticoagulant syndrome; E44.0 Moderate protein-calorie malnutrition; E66.01 Morbid (severe) obesity due to excess calories; Z68.41 Body mass index [BMI] 40.0-44.9, adult; E83.42 Hypomagnesemia; G35 Multiple sclerosis; I27.20 Pulmonary hypertension, unspecified; K31.84 Gastroparesis; K94.22 Gastrostomy infection; G43.409 Hemiplegic migraine, not intractable, without status migrainosus; L03.311 Cellulitis of abdominal wall; K21.9 Gastro-esophageal reflux disease without esophagitis; K29.70 Gastritis, unspecified, without bleeding; B96.4 Proteus (mirabilis) (morganii) as the cause of diseases classified elsewhere; B96.1 Klebsiella pneumoniae [K. pneumoniae] as the cause of diseases classified elsewhere; B96.89 Other specified bacterial agents as the cause of diseases classified elsewhere; Z86.718 Personal history of other venous thrombosis and embolism; Z79.01 Long term (current) use of anticoagulants; G89.4 Chronic pain syndrome; F31.9 Bipolar disorder, unspecified; F41.9 Anxiety disorder, unspecified; G62.9 Polyneuropathy, unspecified; E87.6 Hypokalemia; Z87.440 Personal history of urinary (tract) infections; Z86.711 Personal history of pulmonary embolism; Z96.642 Presence of left artificial hip joint; Z82.49 Family history of ischemic heart disease and other diseases of the circulatory system; D64.9 Anemia, unspecified; E78.5 Hyperlipidemia, unspecified; E03.9 Hypothyroidism, unspecified; Z91.5 Personal history of self-harm; Z90.49 Acquired absence of other specified parts of digestive tract; M86.662 Other chronic osteomyelitis, left tibia and fibula; I11.0 Hypertensive heart disease with heart failure; I50.32 Chronic diastolic (congestive) heart failure; J45.909 Unspecified asthma, uncomplicated; Z79.51 Long term (current) use of inhaled steroids; Z79.899 Other long term (current) drug therapy; M51.37 Other intervertebral disc degeneration, lumbosacral region; N39.0 Urinary tract infection, site not specified; K56.41 Fecal impaction; K66.0 Peritoneal adhesions (postprocedural) (postinfection); K52.9 Noninfective gastroenteritis and colitis, unspecified; M32.9 Systemic lupus erythematosus, unspecified
CPT/HCPCS: 36415; 70030-TC; 70450; 71045; 74021; 74250; 82747; 82784; 83550; 83690; 83735; 84100; 84155; 84165; 84443; 84481; 85014; 85025; 85730; 86334; 87070; 87077; 87086; 88342; 93005; 94640; 94664; A4217; A4663; G0378; J0696; J1170; J2270; J2405; J2543; J3370; J3475; J3490; J3590; J7042; J7050; J7060; J7070; J7517; Q9963; Q9967